=== PATIENT | female | born 1955 | race African-American/Black ===

== ENCOUNTER 2017-10-22 15:48 | Inpatient (IN) ==
[2017-10-22] MEDS ORDERED: Sodium Chlor 0.9% Inj 250 ML IV.SIG ONE (15:56)
--- NOTE | 2017-10-22 16:19 | CT ---
EXAM DATE: 10/22/2017 4:10 PM EDT AGE/SEX: 61 years / Female INDICATIONS: Stroke alert, left sided weakness. CLINICAL DATA: This is the patient's initial encounter. Patient reports that signs and symptoms have been present for 1 day and indicates a pain score of Nonresponsive. MEDICAL/SURGICAL HISTORY: Non-responsive. Non-responsive. RADIATION DOSE: 56.35 CTDI (mGy) [place]PAR[place]: [facility] [place] W 3D, 10/22/2017. . TECHNIQUE: CT of the head without contrast. Using automated exposure control and adjustment of the mA and/or kV according to patient size, radiation dose was kept as low as reasonably achievable to ob tain optimal diagnostic quality images. DICOM format image data is available electronically for revi ew and comparison. FINDINGS: Cerebrum: The ventricles are normal. No midline shift, mass lesion, hemorrhage or acute infarction. No extraaxial fluid collections are seen. There is subtle asymmetric low-density in the right front al lobe best visualized on image 16 and along the right anterior insular ribbon. Posterior Fossa: The cerebellum and brainstem demonstrate no acute abnormality. The 4th ventricle is midline. The cerebellopontine angle is within normal limits. Extracranial: The visualized sinuses are clear. Skull: The calvaria is intact. No skull fracture. CONCLUSION: Findings suspicious for subtle edema along the right insular ribbon and the right frontal lobe. This could represent early cytotoxic edema related to ischemia. These findings were telephoned to Dr. Mandujano at 4:15 PM on 10/22/2017. Electronically signed by: Adria Kern MD 10/22/2017 4:18 PM EDT
[2017-10-22] MEDS ORDERED: Aspirin 325 MG Tablet PO ONE (16:24)
[2017-10-22 16:25] LABS: Baso # (Auto) 0.1 th/mm3 (0.0-0.2); Baso % (Auto) 1.2 % (0.0-2.0); Eos # (Auto) 0.1 th/mm3 (0.0-0.4); Eos % (Auto) 0.8 % (0.0-4.0); Hematocrit 41.6 % (35.0-46.0); Hemoglobin 13.9 gm/dL (11.6-15.3); Lymph # (Auto) 1.9 th/mm3 (1.0-4.8); Lymph % (Auto) 23.7 % (9.0-44.0); Mean Corpuscular HGB Conc 33.4 % (32.0-36.0); Mean Corpuscular Hemoglobin 30.9 pg (27.0-34.0); Mean Corpuscular Volume 92.5 fL (80.0-100.0); Mean Platelet Volume 10.7 fL (7.0-11.0); Mono # (Auto) 0.7 th/mm3 (0.0-0.9); Mono % (Auto) 8.7 % (0.0-8.0); Neut # (Auto) 5.1 th/mm3 (1.8-7.7); Neut % (Auto) 65.6 % (16.0-70.0); Platelet Count 196 th/mm3 (150-450); Red Blood Count 4.49 mil/mm3 (4.00-5.30); Red Cell Distribution Width 13.5 % (11.6-17.2); White Blood Count 7.8 th/mm3 (4.0-11.0)
[2017-10-22 16:36] LABS: Activated Partial Thrombo Time 21.1 sec (24.3-30.1); INR 1.1 Ratio; Prothrombin Time 10.8 sec (9.8-11.6)
--- NOTE | 2017-10-22 16:36 | XR ---
EXAM DATE: 10/22/2017 4:26 PM EDT AGE/SEX: 61 years / Female INDICATIONS: Stroke alert. CLINICAL DATA: This is the patient's initial encounter. Patient reports that signs and symptoms have been present for 1 day and indicates a pain score of 4/10. MEDICAL/SURGICAL HISTORY: None. None. COMPARISON: No prior exams available for comparison. FINDINGS: A single AP view of the chest demonstrates the lungs to be symmetrically aerated without evidence of mass, infiltrate or effusion. The cardiomediastinal contours are unremarkable. Osseous structures a re intact. CONCLUSION: Negative examination. Electronically signed by: Jayesh Wood MD 10/22/2017 4:34 PM EDT
--- NOTE | 2017-10-22 16:41 | CT ---
EXAM DATE: 10/22/2017 4:27 PM EDT AGE/SEX: 61 years / Female INDICATIONS: Left side facial droop CLINICAL DATA: This is the patient's initial encounter. Patient reports that signs and symptoms have been present for 1 day and indicates a pain score of 0/10. MEDICAL/SURGICAL HISTORY: . unable to obtain . unable to obtain RADIATION DOSE: 10.78 CTDI (mGy) ; Combined studies [place] [facility] [place], 10/22/2017. . TECHNIQUE: Volumetric scanning was performed using a multi-row detector CT scanner during bolus infu lashell of 80 ml Visipaque 320 (iodixanol) nonionic water-soluble contrast as a cumulative dose for mul tiple exams. The data was post processed with a variety of visualization algorithms including full volume maximum intensity projection, multi-planar sliding thin slab reformation, curved planar reform ation, and surface rendering techniques. Using automated exposure control and adjustment of the mA a nd/or kV according to patient size, radiation dose was kept as low as reasonably achievable to obtain optimal diagnostic quality images. DICOM format image data is available electronically for review a nd comparison. FINDINGS: There is focal occlusion versus critical stenosis of the superior division branch of the right middle cerebral artery. There is at least partial recanalization of some of the branch vessels. The contral ateral left middle cerebral vessels are intact and unremarkable. The anterior cerebral vessels are in tact and unremarkable. The posterior circulation vessels are intact with incidental largely leana gin of the right posterior cerebral artery. CONCLUSION: Focal proximal occlusion of the superior division branch of the right middle cerebral artery. Electronically signed by: Adria Olsen MD 10/22/2017 4:40 PM EDT
--- NOTE | 2017-10-22 16:50 | CT ---
EXAM DATE: 10/22/2017 4:40 PM EDT AGE/SEX: 61 years / Female INDICATIONS: Left side facial droop CLINICAL DATA: This is the patient's initial encounter. Patient reports that signs and symptoms have been present for 1 day and indicates a pain score of 0/10. MEDICAL/SURGICAL HISTORY: . Unable to obtain . unable to obtain RADIATION DOSE: 10.78 CTDI (mGy) ; Combined studies COMPARISON: No prior exams available for comparison. TECHNIQUE: Volumetric scanning was performed using a multirow detector CT scanner during bolus infus ion of 80 ml Visipaque 320 (iodixanol) nonionic water-soluble contrast as a cumulative dose for mult iple exams. The data was postprocessed with a variety of visualization algorithms including full-vo lume maximum intensity projection, multiplanar sliding thin-slab reformation, curved-planar reformati on, and surface-rendering techniques. Using automated exposure control and adjustment of the mA and/ or kV according to patient size, radiation dose was kept as low as reasonably achievable to obtain op timal diagnostic quality images. DICOM format image data is available electronically for review and comparison. Percent stenosis is calculated using the diameter of the stenotic region over the diameter of the nor mal distal internal carotid artery. FINDINGS: Aortic Arch: There is a three-vessel origin of the great vessels from the aorta. No evidence of ost ial narrowing Right Carotid: The common carotid artery is intact. The carotid bulb has a normal configuration wit hout ulceration or narrowing. The internal carotid artery lumen is smooth without stenosis. The ext ernal carotid artery is intact. Left Carotid: The common carotid artery is intact. The carotid bulb has a normal configuration with out ulceration or narrowing. The internal carotid artery lumen is smooth without stenosis. The exte rnal carotid artery is intact. Vertebrals: The vertebral arteries are patent bilaterally, left side dominant. No stenotic lesions are seen. CONCLUSION: No evidence of carotid stenosis Electronically signed by: Adria Olsen MD 10/22/2017 4:48 PM EDT
[2017-10-22 16:51] LABS: Anion Gap 8 meq/L (5-15); Blood Urea Nitrogen 8 mg/dL (7-18); Calcium 8.6 mg/dL (8.5-10.1); Carbon Dioxide 25.2 meq/L (21.0-32.0); Chloride 108 meq/L (98-107); Glomerular Filtration Rate Greater Than 89 mL/min (>89); Glucose,Random 103 mg/dL (74-106); Sodium 141 meq/L (136-145)
[2017-10-22 16:56] LABS: Troponin I 0.03 ng/mL (0.02-0.05)
[2017-10-22 17:04] LABS: Potassium 3.9 meq/L (3.5-5.1)
[2017-10-22] MEDS ORDERED: Labetalol HCl Inj 100 MG/20 ML Vial IV.PUSH ONE (17:11)
[2017-10-22] MEDS ORDERED: Dextrose 50% in Water 50 ML Vial IV.PUSH PRN (17:14)
[2017-10-22 17:20] LABS: CKMB Percent 2.2 % (0.0-4.0); Creatine Kinase MB 5.4 ng/mL (0.5-3.6)
[2017-10-22] MEDS: Enoxaparin Inj 40 MG/0.4 ML Syringe SQ SCH (17:30)
[2017-10-22] MEDS: Sod Chloride 0.9% Inj 1,000 ML IV.CONT SCH (17:30)
--- NOTE | 2017-10-22 17:30 | ED ---
HPI General Chief Complaint: Neuro Symptoms/Deficit Stated Complaint: Neuro Time Seen by Provider: 10/22/17 15:53 Source: patient and EMS Mode of arrival: EMS Limitations: no limitations History of Present Illness HPI Narrative: Patient is a previously healthy 61-year-old female who presents with complaint of facial droop. She states that approximately 11:00 she started to "feel funny." She then went to [facility] where she walked around for several hours and was found confused with a left facial droop and slurred speech. EMS was then called and brought her here. She arrived here approximately 4-1/2 hours after she was last noted to be well. She denies numbness. She denies weakness. She denies recent fevers. Onset (ago): hour(s) Last Observed Normal: 11:00 Location: speech and left face History of same: No Severity: moderate Quality: constant Relieving factors: none Exacerbating factors: none On Anticoagulants: No Associated symptoms: confusion Treatments Prior to Arrival: none Related Data Home Medications Medication Instructions Recorded Confirmed No Known Home Medications 10/22/17 10/22/17 Allergies Allergy/AdvReac Type Severity Reaction Status Date / Time No Known Allergies Allergy Unverified 10/22/17 16:09 Review of Systems ROS: all other systems reviewed are negative Constitutional Denies fever(s) Eyes Denies blurry vision ENT Denies nasal congestion Cardiovascular Denies chest pain Respiratory Denies dyspnea Gastrointestinal Denies abdominal pain Genitourinary Denies dysuria Musculoskeletal Denies back pain and Denies neck pain Integumentary/Breasts Denies rash Neurologic Reports abnormal speech, Reports confusion, Denies dizziness, Reports headache(s ) and Denies loss of vision Psychiatric Reports confusion Endocrine Denies fatigue [facility] Medical History Medical History Patient denies medical problems (Acute) Surgical History Surgical History No history of previous surgery (Acute) Social History Social History Substance History: No History of Abuse Second Hand Smoke Exposure: Yes Smoking Status: Current every day smoker Tobacco Type: Cigarettes How Often Do You Have a Drink Containing Alcohol: 4 or more times a week Recent Travel in [facility] within the Last 8 Weeks: No Recent Out of Country Travel within the Last 8 Weeks: No Immunization History Tetanus Immunization: >5 Years Hx Influenza Vaccine This Season: No Exam Narrative Exam Narrative: GENERAL: Well-appearing female in no acute distress SKIN: Focused skin assessment warm/dry. No rashes. HEAD: Atraumatic. Normocephalic. EYES: Pupils equal and round. No scleral icterus. No injection or drainage. ENT: No nasal bleeding or discharge. Mucous membranes pink and moist. NECK: Trachea midline. No JVD. CARDIOVASCULAR: Regular rate and rhythm. No murmur appreciated. RESPIRATORY: No accessory muscle use. Clear to auscultation. Breath sounds equal bilaterally. GASTROINTESTINAL: Abdomen soft, non-tender, nondistended. Hepatic and splenic margins not palpable. MUSCULOSKELETAL: No obvious deformities. No clubbing. No cyanosis. No edema. NEUROLOGICAL: Awake and alert but appears slightly confused. Left facial droop with central sparing. Motor within normal limits and without drift. No numbness. No visual field deficits. Dysarthria present without aphasia. PSYCHIATRIC: Tearful and anxious appearing. Course Initial Documented Vital Signs Pulse Rate 117 H 10/22/17 15:52 Respiratory Rate 16 10/22/17 15:52 Pulse Oximetry 97 10/22/17 15:52 Last Documented Vital Signs Temperature 98.3 F 10/22/17 16:52 Pulse Rate 100 H 10/22/17 17:21 Respiratory Rate 17 10/22/17 16:22 Blood Pressure 211/100 H 10/22/17 17:21 Pulse Oximetry 97 10/22/17 17:12 NIH Stroke Scale NIH Stroke Scale Orientation Questions: 0-Answers both correct Responds to Commands: 0-Both tasks correct Gaze Eye Movement: 0-Horizontal movement WNL Visual Andrea: 0-No visual field defect Facial Movement: 2-Partial facial palsy Motor Functions Arm LEFT: 0-No drift Motor Functions Arm RIGHT: 0-No drift Motor Functions Leg LEFT: 0-No drift Motor Functions Leg RIGHT: 0-No drift Limb Ataxia: 0-No ataxia Sensory Loss: 0-No sensory loss Best Language: 0-Normal Articulation: 1-Mild dysarthia Extinction or Inattention Sensory: 0-Absent Total: 3 Quality Measure Queries Stroke Last date observed well: 10/22/17 Last time observed well: 11:00 Medical Decision Making MDM Narrative Medical decision making narrative: Patient is a 61-year-old female who presents with complaint of left facial droop, slight confusion, and dysarthria. Last known well time was approximately 5 hours prior to arrival this acute stroke was activated in case there is any chance she could have an IR procedure. CT did show subtle edema along the right insular ribbon but CTA did not show any large occlusion. I spoke with Dr. Mariee, the neurologist on-call, who recommended that she receive a small normal saline bolus in addition to aspirin which has been given. She is being admitted to Dr. Levin, hospitalist on-call, with Dr. Mariee on board for further evaluation and management. Medical Screen Exam Complete: Yes Emergency Medical Condition: Yes Differential Diagnosis Differential Diagnosis: Differential diagnosis includes but is not limited to hypoglycemia, acute CVA, TIA. Medical Records Medical records reviewed: Yes I reviewed the patient's medical records. Lab Data Lab results reviewed: Yes I reviewed the patient's lab results. Lab results narrative: Labs unremarkable. Result diagrams: 10/22/17 15:55 10/22/17 15:55 Lab Results 10/22/17 10/22/17 10/22/17 Range/Units 15:51 15:55 15:55 WBC 7.8 (4.0-11.0) th/mm3 RBC 4.49 (4.00-5.30) mil/mm3 Hgb 13.9 (11.6-15.3) gm/dL POC Hgb (Calc) 13.3 (11.6-15.3) g/dL Hct 41.6 (35.0-46.0) % POC Hct 39.0 (35-46.0) % MCV 92.5 (80.0-100.0) fL MCH 30.9 (27.0-34.0) pg MCHC 33.4 (32.0-36.0) % RDW 13.5 (11.6-17.2) % Plt Count 196 (150-450) th/mm3 MPV 10.7 (7.0-11.0) fL Neut % (Auto) 65.6 (16.0-70.0) % Lymph % (Auto) 23.7 (9.0-44.0) % [place] % (Auto) 8.7 H (0.0-8.0) % Eos % (Auto) 0.8 (0.0-4.0) % Baso % (Auto) 1.2 (0.0-2.0) % Neut # (Auto) 5.1 (1.8-7.7) th/mm3 Lymph # (Auto) 1.9 (1.0-4.8) th/mm3 [place] # (Auto) 0.7 (0.0-0.9) th/mm3 Eos # (Auto) 0.1 (0.0-0.4) th/mm3 Baso # (Auto) 0.1 (0.0-0.2) th/mm3 WBC Differential . Differential Comment Auto diff final PT (9.8-11.6) sec INR Ratio APTT (24.3-30.1) sec Fibrinogen (227-377) mg/dL POC Sodium 140 (137-144) mmol/L Sodium 141 (136-145) meq/L POC Potassium 3.8 (3.6-5.0) mmol/L Potassium 3.9 (3.5-5.1) meq/L POC Chloride 105 (102-111) mmol/L Chloride 108 H (98-107) meq/L Carbon Dioxide 25.2 (21.0-32.0) meq/L Anion Gap 8 (5-15) meq/L POC BUN 8 (5-21) mg/dL BUN 8 (7-18) mg/dL Creatinine 0.78 (0.50-1.00) mg/dL POC Creatinine 0.7 (0.6-1.3) mg/dL Estimated GFR Greater than 89 (>89) mL/min POC Glucose 112 H 109 (68-110) mg/dl Random Glucose 103 (74-106) mg/dL Calcium 8.6 (8.5-10.1) mg/dL Total Creatine Kinase (26-192) U/L CK-MB (CK-2) (0.5-3.6) ng/mL CK-MB (CK-2) % (0.0-4.0) % Troponin I (0.02-0.05) ng/mL Blood Type Blood Type Recheck Antibody Screen 10/22/17 10/22/17 10/22/17 Range/Units 15:55 15:55 15:55 WBC (4.0-11.0) th/mm3 RBC (4.00-5.30) mil/mm3 Hgb (11.6-15.3) gm/dL POC Hgb (Calc) (11.6-15.3) g/dL Hct (35.0-46.0) % POC Hct (35-46.0) % MCV (80.0-100.0) fL MCH (27.0-34.0) pg MCHC (32.0-36.0) % RDW (11.6-17.2) % Plt Count (150-450) th/mm3 MPV (7.0-11.0) fL Neut % (Auto) (16.0-70.0) % Lymph % (Auto) (9.0-44.0) % [place] % (Auto) (0.0-8.0) % Eos % (Auto) (0.0-4.0) % Baso % (Auto) (0.0-2.0) % Neut # (Auto) (1.8-7.7) th/mm3 Lymph # (Auto) (1.0-4.8) th/mm3 [place] # (Auto) (0.0-0.9) th/mm3 Eos # (Auto) (0.0-0.4) th/mm3 Baso # (Auto) (0.0-0.2) th/mm3 WBC Differential Differential Comment PT 10.8 (9.8-11.6) sec INR 1.1 Ratio APTT 21.1 L (24.3-30.1) sec Fibrinogen 296 (227-377) mg/dL POC Sodium (137-144) mmol/L Sodium (136-145) meq/L POC Potassium (3.6-5.0) mmol/L Potassium (3.5-5.1) meq/L POC Chloride (102-111) mmol/L Chloride (98-107) meq/L Carbon Dioxide (21.0-32.0) meq/L Anion Gap (5-15) meq/L POC BUN (5-21) mg/dL BUN (7-18) mg/dL Creatinine (0.50-1.00) mg/dL POC Creatinine (0.6-1.3) mg/dL Estimated GFR (>89) mL/min POC Glucose (68-110) mg/dl Random Glucose (74-106) mg/dL Calcium (8.5-10.1) mg/dL Total Creatine Kinase 244 H (26-192) U/L CK-MB (CK-2) 5.4 H (0.5-3.6) ng/mL CK-MB (CK-2) % 2.2 (0.0-4.0) % Troponin I 0.03 (0.02-0.05) ng/mL Blood Type B Positive Blood Type Recheck Antibody Screen Negative Imaging Data Attestation: I personally reviewed and interpreted this imaging study as follows : My impression: Subtle edema concerning for CVA. Radiologist's impression: Chest X-Ray 10/22/17 15:52 CONCLUSION: Negative examination. Head CT 10/22/17 15:52 CONCLUSION: Findings suspicious for subtle edema along the right insular ribbon and the right frontal lobe. This could represent early cytotoxic edema related to ischemia. These findings were telephoned to Dr. Mandujano at 4:15 PM on 10/22/2017. Head CTA 10/22/17 15:52 CONCLUSION: Focal proximal occlusion of the superior division branch of the right middle cerebral artery. Neck CTA 10/22/17 15:52 CONCLUSION: No evidence of carotid stenosis ECG Data EKG Prior to Arrival: No Attestation: I personally reviewed and interpreted this ECG as follows: Discharge Plan Discharge Disposition Patient Disposition: 30 Still Patient Discharge Condition Condition: Stable Discharge Details Diagnosis: Acute CVA (cerebrovascular accident) Physicians Team ED Provider: Linn Mandujano Primary Care Provider: UNKNOWN, Attending Provider: Leonor Levin Other Providers: Mauro Mariee ; Isabelle Chi Status ED Status: Admitted Patient
--- NOTE | 2017-10-22 17:52 | P.HPIM ---
History of Present Illness Primary Care Physician: UNKNOWN Chief Complaint: Confusion left facial droop History of Present Illness: 61-year-old female with no past medical history presents to the emergency room after she was found wandering in the grocery store and having friends noticed left facial droop. She states prior to going to the grocery store she was in the bathroom and fell but was able to get up at that time at 11 :00 however going to grow sure she felt "not herself". Her friends also noted she had difficulty with her speech however she blames on recent dentures that was placed in. Nursing staff at the bedside the emergency room stated that she initially had garbled speech when she presented in the emergency room however has improved at this time. She denies any focalized weakness or numbness. She denies any numbness or tingling at this time. - Diagnosis (1) Acute CVA (cerebrovascular accident) Inpatient Certification: I certify that the inpatient services were ordered in accordance with Medicare regulations governing the order. This includes certification that hospital inpatient services are reasonable and necessary and in the case of services not specified as inpatient-only under 42 CFR 419.22(n), that they are appropriately provided as inpatient services in accordance to with the 2-midnight benchmark under 43 CFR 412.3(e) Estimated Total Length of Stay (Days): 3 Plans for Post Hospital Care: Not yet determined Review of Systems All other systems reviewed negative except as stated in HPI [facility] - History History Provided By: Patient - Medical / Surgical Hx Neg / Unobtainable Medical Problems Denied: Yes Surgical History: No Previous Surgery - Medical History Medical History: Medical History (Last Reviewed 10/22/17 @ 17:24 by Linn Mandujano MD) Patient denies medical problems - Surgical History Surgical History: Surgical History (Last Reviewed 10/22/17 @ 17:24 by Linn Mandujano MD) No history of previous surgery - Family History Family History: Family History (Last Updated 10/22/17 @ 17:40 by Leonor Levin MD) Mother Diabetes - Tobacco History Second Hand Smoke Exposure: Yes Tobacco Use In Past 30 Days: Yes Smoking Status: Current every day smoker Tobacco Type: Cigarettes - Alcohol History How Often Do You Have a Drink Containing Alcohol: 4 or more times a week - Substance Use History Substance History: No History of Abuse - Travel History Recent Travel in the [facility] Within the Last 8 Weeks: No Recent Travel Out of the Country Within the Last 8 Weeks: No - Immunization History Tetanus Immunization: >5 Years Hx Influenza Vaccine This Season: No Medications and Allergies Active Medications: Active Medications Aspirin (Aspirin) 325 mg PO DAILY [facility] Dextrose (D50w Vial) 50 ml IV.PUSH UNSCH PRN PRN Reason: PER HYPOGLYCEMIA PROTOCOL Enalaprilat (Vasotec Inj) 1.25 mg IV.PUSH Q4H PRN PRN Reason: For SBP > 220 or DBP > 120 Enoxaparin Sodium (Lovenox Inj) 40 mg SQ Q24H [facility] Last Admin: 10/22/17 17:30 Dose: 40 mg Glucagon (Glucagon Inj) 1 mg OTHER UNSCH PRN PRN Reason: for Hypoglycemia Protocol Sodium Chloride (Ns Inj) 1,000 mls @ 70 mls/hr IV.CONT .[id number] [facility] Last Admin: 10/22/17 17:30 Dose: 70 mls/hr Insulin Aspart (Novolog Insulin Correctional Sugar Inj) 0 unit SQ ACHS [facility]; Protocol Pravastatin Sodium (Pravachol) 40 mg PO HS MICHEL Sodium Chloride (Ns Flush) 2 ml IV.FLUSH BID MICHEL Sodium Chloride (Ns Flush) 2 ml IV.FLUSH PRN PRN PRN Reason: FLUSH AFTER USING IV ACCESS Allergies Allergy/AdvReac Type Severity Reaction Status Date / Time No Known Allergies Allergy Unverified 10/22/17 16:09 Home Medications Medication Instructions Recorded Confirmed Type No Known Home Medications 10/22/17 10/22/17 History Exam Vital signs: Vital Signs 10/22/17 15:52 10/22/17 15:55 10/22/17 16:02 Temperature Pulse Rate 117 H 99 H Respiratory Rate 16 17 Blood Pressure 211/98 H 203/92 H Pulse Oximetry 97 94 L 10/22/17 16:15 10/22/17 16:22 10/22/17 16:26 Temperature Pulse Rate 102 H 94 H Respiratory Rate 16 17 Blood Pressure 215/114 H 183/90 H Pulse Oximetry 97 97 97 10/22/17 16:52 10/22/17 17:12 10/22/17 17:14 Temperature 98.3 F Pulse Rate 100 H Respiratory Rate Blood Pressure 224/109 H Pulse Oximetry 97 10/22/17 17:21 10/22/17 17:27 Temperature Pulse Rate 100 H 99 H Respiratory Rate Blood Pressure 211/100 H 147/102 H Pulse Oximetry Intake & Output 10/21/17 10/22/17 10/22/17 18:59 06:59 18:59 Weight 102.7 kg Narrative: GENERAL: Well-nourished well-developed female no acute distress SKIN: Warm and dry. HEAD: Atraumatic. Normocephalic. EYES: Pupils equal and round. No scleral icterus. No injection or drainage. Left facial droop ENT: No nasal bleeding or discharge. Mucous membranes pink and moist. NECK: Trachea midline. No JVD. CARDIOVASCULAR: Regular rate and rhythm. RESPIRATORY: No accessory muscle use. Clear to auscultation. Breath sounds equal bilaterally. GASTROINTESTINAL: Abdomen soft, non-tender, nondistended. Hepatic and splenic margins not palpable. Normoactive bowel sounds MUSCULOSKELETAL: Extremities without clubbing, cyanosis, or edema. No obvious deformities. NEUROLOGICAL: Awake and alert to person place time. Left facial droop sensation grossly intact motor grossly within normal limits. Five out of 5 muscle strength in the arms and legs. Slight garbled speech with minimum aphasia. PSYCHIATRIC: Appropriate mood and affect; insight and judgment normal. Results - Labs CBC & Chem 7: 10/22/17 15:55 10/22/17 15:55 Labs: Short CBC 10/22/17 Range/Units 15:55 WBC 7.8 (4.0-11.0) th/mm3 Hgb 13.9 (11.6-15.3) gm/dL Hct 41.6 (35.0-46.0) % Plt Count 196 (150-450) th/mm3 BMP 10/22/17 15:55 Sodium 141 Potassium 3.9 Chloride 108 H Carbon Dioxide 25.2 BUN 8 Creatinine 0.78 Calcium 8.6 Cardiac Enzymes 10/22/17 Range/Units 15:55 Total Creatine Kinase 244 H (26-192) U/L CK-MB (CK-2) 5.4 H (0.5-3.6) ng/mL Troponin I 0.03 (0.02-0.05) ng/mL - Imaging Impressions Chest X-Ray 10/22/17 15:52 CONCLUSION: Negative examination. Head CT 10/22/17 15:52 CONCLUSION: Findings suspicious for subtle edema along the right insular ribbon and the right frontal lobe. This could represent early cytotoxic edema related to ischemia. These findings were telephoned to Dr. Mandujano at 4:15 PM on 10/22/2017. Head CTA 10/22/17 15:52 CONCLUSION: Focal proximal occlusion of the superior division branch of the right middle cerebral artery. Neck CTA 10/22/17 15:52 CONCLUSION: No evidence of carotid stenosis - ECG Attestation: I personally reviewed and interpreted this ECG as follows: Prior ECG tracings: not available for review Interpretation: Normal sinus rhythm heart rate [address]-T wave changes Caprini VTE Risk Assessment Caprini VTE Risk Assessment: Moderate/High Risk (score >= 2) Caprini Risk Assessment Model: Point Value = 1 Point Value = 2 Point Value = 3 Point Value = 5 Age 41-60 Minor surgery BMI > 25 kg/m2 Swollen legs Varicose veins or History of unexplained or recurrent spontaneous Oral contraceptives or hormone replacement Sepsis (< 1 month) Serious lung disease, including pneumonia (< 1 month) Abnormal pulmonary function Acute myocardial infarction Congestive heart failure (< 1 month) History of inflammatory bowel disease Medical patient at bed rest Age 61-74 Arthroscopic surgery Major open surgery (> 45 min) Laparoscopic surgery (> 45 min) Malignancy Confined to bed (> 72 hours) Immobilizing plaster cast Central venous access Age >= 75 History of VTE Family history of VTE Factor V Leiden Prothrombin [id number] Lupus anticoagulant Anticardiolipin antibodies Elevated serum homocysteine Heparin-induced thrombocytopenia Other congenital or acquired thrombophilia Stroke (< 1 month) Elective arthroplasty Hip, pelvis, or leg fracture Acute spinal cord injury (< 1 month) Prophylaxis Regimen: Total Risk Factor Score Risk Level Prophylaxis Regimen 0-1 Low Early ambulation 2 Moderate Order ONE of the following: *Sequential Compression Device (SCD) *Heparin 5000 units SQ BID 3-4 Higher Order ONE of the following medications: *Heparin 5000 units SQ TID *Enoxaparin/Lovenox 40 mg SQ daily (WT < 150 kg, CrCl > 30 mL/min) *Enoxaparin/Lovenox 30 mg SQ daily (WT < 150 kg, CrCl > 10-29 mL/min) *Enoxaparin/Lovenox 30 mg SQ BID (WT < 150 kg, CrCl > 30 mL/min) AND/OR *Sequential Compression Device (SCD) 5 or more Highest Order ONE of the following medications: *Heparin 5000 units SQ TID (Preferred with Epidurals) *Enoxaparin/Lovenox 40 mg SQ daily (WT < 150 kg, CrCl > 30 mL/min) *Enoxaparin/Lovenox 30 mg SQ daily (WT < 150 kg, CrCl > 10-29 mL/min) *Enoxaparin/Lovenox 30 mg SQ BID (WT < 150 kg, CrCl > 30 mL/min) AND *Sequential Compression Device (SCD) Assessment and Plan - Assessment (1) Acute CVA (cerebrovascular accident) Code(s): I63.9 - Cerebral infarction, unspecified Status: Acute - Plan 61-year-old female presents with left facial droop, confusion, mild dysarthria 1. Acute CVAadmit for further evaluation. Stroke alert initiated with consult to neurology. Aspirin. Await MRI of the brain, 2D echo, continue close neurological checks. Check fasting lipid profile and hemoglobin A1c, consult PT and ST. 2. Hypertensive emergency -permissive blood pressure for next 24 hours secondary to acute stroke. Discussed with Neurology, Dr. Mariee. 3. Tobacco abusecessation counseling 4. DVT prophylaxisLovenox.
[2017-10-22 18:05] LABS: Bacteria,Urine Few /hpf; Bilirubin,Urine Negative (Negative); Clarity,Urine Cloudy (Clear); Color,Urine Straw (Yellw/Straw); Glucose,Urine (UA) Negative (Negative); Leukocyte Esterase,Urine Large (Negative); Mucus,Urine Few /lpf (Occasional); Nitrite,Urine Negative (Negative); Specific Gravity,Urine 1.013 (1.002-1.035); Squamous Epithelial Cell,Urine 2 /hpf (0-5)
--- NOTE | 2017-10-22 18:37 | MB ---
cc: Mauro Mariee MD DATE: 10/22/2017 HISTORY OF PRESENT ILLNESS: A 61-year-old right-handed woman with a history of hypertension, otherwise she is very healthy. She got up this morning, seemed to be doing well, and went to the bathroom at about 11 and slid off the toilet. Then got up and went to the store, but a friend noticed that her face was droopy and then she came into the ER. I was called at approximately 4:00 p.m., which was about 5-1/2 hours after the onset of symptoms. She was not a candidate for IV tPA at that point. REVIEW OF SYSTEMS: She denied any headache, chest pain, or palpitations; any history of diabetes, hypercholesterolemia, [place], stent, angioplasty, heart problems, A-fib, Coumadin; renal, hepatic or pulmonary disease, thyroid disease, lupus, ulcer, cancer, seizure, or stroke. SOCIAL HISTORY: She is a smoker and I have asked her to quit, occasionally has a drink. Lives by herself. No drugs. FAMILY HISTORY: Negative for cancer, seizure, or stroke. MEDICATIONS AT HOME: None. PHYSICAL EXAMINATION: VITAL SIGNS: 224/109-147/102, initial blood pressure 211/98. There are no carotid bruits. HEART: Regular rate and rhythm. I did not detect a murmur. NEUROLOGIC: Pupils are equal. Visual farfan are actually full, but she has some left visual neglect, which is fairly consistent. Patient shows a left facial droop, with decreased sensation on the left compared to the right. Tongue was midline. There is no drift. She had normal strength in upper and lower extremities bilaterally. DTRs are trace throughout. Toes downgoing bilaterally. She has diminished pinprick on the left side. She has some left-sided sensory neglect on double simultaneous stimuli checking sensory. Her speech is fluent. She is not aphasic. A little bit of slurred speech. She shows me her left thumb well, follows commands well. NIH stroke scale is a 3 due to her partial neglect left hemisensory diminished and the left visual neglect. LABORATORY DATA: CBC is normal. Basic metabolic profile normal. CPK 244. Troponin negative. Glucose 112. Coags normal. DIAGNOSTIC DATA: She had a CT of the brain, which showed early changes in the right frontal and right insular ribbon. On review of the films, there was significant, possibly it looks older probably than 6 hours of the right frontal insular region CT change, as far as how dense it is. CTA of the neck: No significant stenosis. CTA of the head: Superior division of right MCA occlusion. On review of the films, MCA fills well. A distal occlusion, however, noted. IMPRESSION: Right distal middle cerebral artery branch clot. Possible cardioembolic. PLAN: I am not certain about the time of onset; she says 11:00 when she fell off the toilet, but the fact that she did not realize she had slurred speech and the fact that she has such neglect, it could have happened at a much earlier time and she would not have known about it. I did talk with Dr. Harris, and he felt that trying to do a clot extraction could give her a hemorrhage, and I would agree considering the changes seen on the CT, which looked to be probably older than 6 hours, I thought, and I am uncertain really about the time of onset due to her neglect. For now, we will keep the head of bed flat, IV hydration, keep her blood pressure up, and do an echo and a Holter, and some additional blood work. I will be following her with you in the hospital and do q.1 hour neuro checks. MD YESICA Fierro/flavia , 05:45 PM , 05:54 PM
--- NOTE | 2017-10-22 19:01 | MR ---
EXAM DATE: 10/22/2017 6:52 PM EDT AGE/SEX: 61 years / Female INDICATIONS: CVA. Left sided weakness and slurred speech. CLINICAL DATA: This is the patient's initial encounter. Patient reports that signs and symptoms have been present for 1 day and indicates a pain score of 5/10. MEDICAL/SURGICAL HISTORY: None. Tubal ligation. COMPARISON: [facility] [place], CT HEAD W/O CONTRAST, 10/22/2017. . TECHNIQUE: Multiplanar, multisequence examination of the brain was performed without contrast. FINDINGS: Cerebrum: The ventricles are normal for age. Area of increased T2 FLAIR signal intensity within the right frontoparietal region. The pituitary gland and suprasellar cistern are normal in configuration . White Matter: Minimal white matter changes in the deep white matter tracts. Posterior Fossa: The cerebellum and brainstem are intact. The 4th ventricle is midline. The cerebel lopontine angle is unremarkable. The cerebellar tonsils are normal in position. Diffusion Imaging: True diffusion restriction in the area of increased T2 signal intensity described in the right frontoparietal region. Extracranial: The visualized portions of the orbits and paranasal sinuses are unremarkable. CONCLUSION: 1. Acute or subacute infarct in the right frontoparietal region. 2. Minimal white matter changes Electronically signed by: Grover Kim MD 10/22/2017 7:00 PM EDT
[2017-10-22 21:48] LABS: Folate 13.2 ng/mL (3.1-17.5); Thyroid Stimulating Hormone 2.13 uIU/mL (0.358-3.740)
[2017-10-22] MEDS: Insulin NovoLOG Aspart Correctional Sugar Inj SQ SCH (22:26)
[2017-10-22] MEDS ORDERED: Ibuprofen 600 MG Tablet PO ONE (22:39)
[2017-10-23 06:17] LABS: Chol/HDL Ratio 2.09 Ratio; HDL Cholesterol 61.7 mg/dL (40.0-60.0)
--- NOTE | 2017-10-23 07:38 | P.PNNEU ---
Subjective Subjective Comments: sr Active Medications: Active Medications Aspirin (Aspirin) 325 mg PO DAILY [facility] Dextrose (D50w Vial) 50 ml IV.PUSH UNSCH PRN PRN Reason: PER HYPOGLYCEMIA PROTOCOL Enalaprilat (Vasotec Inj) 1.25 mg IV.PUSH Q4H PRN PRN Reason: For SBP > 220 or DBP > 120 Enoxaparin Sodium (Lovenox Inj) 40 mg SQ Q24H [facility] Last Admin: 10/22/17 17:30 Dose: 40 mg Glucagon (Glucagon Inj) 1 mg OTHER UNSCH PRN PRN Reason: for Hypoglycemia Protocol Sodium Chloride (Ns Inj) 1,000 mls @ 70 mls/hr IV.CONT .[id number] [facility] Last Infusion: 10/22/17 21:03 Dose: Infused Insulin Aspart (Novolog Insulin Correctional Sugar Inj) 0 unit SQ ACHS [facility]; Protocol Last Admin: 10/22/17 22:26 Dose: Not Given Pravastatin Sodium (Pravachol) 40 mg PO HS [facility] Last Admin: 10/22/17 21:53 Dose: 40 mg Sodium Chloride (Ns Flush) 2 ml IV.FLUSH BID [facility] Last Admin: 10/22/17 21:53 Dose: 2 ml Sodium Chloride (Ns Flush) 2 ml IV.FLUSH PRN PRN PRN Reason: FLUSH AFTER USING IV ACCESS Allergies/Adverse Reactions: Allergies Allergy/AdvReac Type Severity Reaction Status Date / Time No Known Allergies Allergy Unverified 10/22/17 16:09 Physical Exam Vital signs: Vital Signs 10/22/17 15:52 10/22/17 15:55 10/22/17 16:02 Temperature Pulse Rate 117 H 99 H Respiratory Rate 16 17 Blood Pressure 211/98 H 203/92 H Pulse Oximetry 97 94 L 10/22/17 16:15 10/22/17 16:22 10/22/17 16:26 Temperature Pulse Rate 102 H 94 H Respiratory Rate 16 17 Blood Pressure 215/114 H 183/90 H Pulse Oximetry 97 97 97 10/22/17 16:52 10/22/17 17:12 10/22/17 17:14 Temperature 98.3 F Pulse Rate 100 H Respiratory Rate Blood Pressure 224/109 H Pulse Oximetry 97 10/22/17 17:21 10/22/17 17:27 10/22/17 19:13 Temperature Pulse Rate 100 H 99 H 97 H Respiratory Rate 18 Blood Pressure 211/100 H 147/102 H 203/99 H Pulse Oximetry 98 10/22/17 19:48 10/22/17 21:00 10/23/17 00:00 Temperature 99.6 F Pulse Rate 92 H 69 Respiratory Rate 18 19 Blood Pressure 199/97 H 159/78 H Pulse Oximetry 96 98 10/23/17 04:00 Temperature 99.5 F Pulse Rate 63 Respiratory Rate 20 Blood Pressure 157/74 H Pulse Oximetry 97 Intake & Output 10/22/17 10/23/17 10/23/17 18:59 06:59 18:59 Intake Total 1000 / 1000 Balance 1000 / 1000 Weight 102.7 kg 104.4 kg Intake: IV 1000 / 1000 NS Inj 1,000 ML @ 70 mls/hr IV. 1000 / 1000 CONT .[id number] [facility] Rx#:[id number] Other: # Voids 2 Weight On Admission 105.2 kg Narrative: left droop mild speech clear 5/5 left vff Objective Laboratory Results - last 24 hr 10/22/17 10/22/17 10/22/17 15:51 15:55 15:55 WBC 7.8 RBC 4.49 Hgb 13.9 POC Hgb (Calc) 13.3 Hct 41.6 POC Hct 39.0 MCV 92.5 MCH 30.9 MCHC 33.4 RDW 13.5 Plt Count 196 MPV 10.7 Neut % (Auto) 65.6 Lymph % (Auto) 23.7 [place] % (Auto) 8.7 H Eos % (Auto) 0.8 Baso % (Auto) 1.2 Neut # (Auto) 5.1 Lymph # (Auto) 1.9 [place] # (Auto) 0.7 Eos # (Auto) 0.1 Baso # (Auto) 0.1 WBC Differential . Differential Comment Auto diff final ESR PT INR APTT Fibrinogen POC Sodium 140 Sodium 141 POC Potassium 3.8 Potassium 3.9 POC Chloride 105 Chloride 108 H Carbon Dioxide 25.2 Anion Gap 8 POC BUN 8 BUN 8 Creatinine 0.78 POC Creatinine 0.7 Estimated GFR Greater than 89 POC Glucose 112 H 109 Random Glucose 103 Calcium 8.6 Total Creatine Kinase CK-MB (CK-2) CK-MB (CK-2) % Troponin I Triglycerides Cholesterol LDL Cholesterol, Calc HDL Cholesterol Cholesterol/HDL Ratio Vitamin B12 Folate TSH Free T4 Urine Color Urine Clarity Urine pH Ur Specific [place] Urine Protein Urine Glucose (UA) Urine Ketones Urine Occult Blood Urine Nitrate Urine Bilirubin Urine Urobilinogen Ur Leukocyte Esterase Urine RBC Urine WBC Urine WBC Clumps Ur Squamous Epith Cells Urine Bacteria Urine Mucus Micro UA Comment Urine Culture Comments Nasal Screen MRSA (PCR) Blood Type Blood Type Recheck Antibody Screen 10/22/17 10/22/17 10/22/17 15:55 15:55 15:55 WBC RBC Hgb POC Hgb (Calc) Hct POC Hct MCV MCH MCHC RDW Plt Count MPV Neut % (Auto) Lymph % (Auto) [place] % (Auto) Eos % (Auto) Baso % (Auto) Neut # (Auto) Lymph # (Auto) [place] # (Auto) Eos # (Auto) Baso # (Auto) WBC Differential Differential Comment ESR PT 10.8 INR 1.1 APTT 21.1 L Fibrinogen 296 POC Sodium Sodium POC Potassium Potassium POC Chloride Chloride Carbon Dioxide Anion Gap POC BUN BUN Creatinine POC Creatinine Estimated GFR POC Glucose Random Glucose Calcium Total Creatine Kinase 244 H CK-MB (CK-2) 5.4 H CK-MB (CK-2) % 2.2 Troponin I 0.03 Triglycerides Cholesterol LDL Cholesterol, Calc HDL Cholesterol Cholesterol/HDL Ratio Vitamin B12 Folate TSH Free T4 Urine Color Urine Clarity Urine pH Ur Specific [place] Urine Protein Urine Glucose (UA) Urine Ketones Urine Occult Blood Urine Nitrate Urine Bilirubin Urine Urobilinogen Ur Leukocyte Esterase Urine RBC Urine WBC Urine WBC Clumps Ur Squamous Epith Cells Urine Bacteria Urine Mucus Micro UA Comment Urine Culture Comments Nasal Screen MRSA (PCR) Blood Type B Positive Blood Type Recheck Antibody Screen Negative 10/22/17 10/22/17 10/22/17 15:55 17:05 20:18 WBC RBC Hgb POC Hgb (Calc) Hct POC Hct MCV MCH MCHC RDW Plt Count MPV Neut % (Auto) Lymph % (Auto) [place] % (Auto) Eos % (Auto) Baso % (Auto) Neut # (Auto) Lymph # (Auto) [place] # (Auto) Eos # (Auto) Baso # (Auto) WBC Differential Differential Comment ESR 6 PT INR APTT Fibrinogen POC Sodium Sodium POC Potassium Potassium POC Chloride Chloride Carbon Dioxide Anion Gap POC BUN BUN Creatinine POC Creatinine Estimated GFR POC Glucose Random Glucose Calcium Total Creatine Kinase CK-MB (CK-2) CK-MB (CK-2) % Troponin I Triglycerides Cholesterol LDL Cholesterol, Calc HDL Cholesterol Cholesterol/HDL Ratio Vitamin B12 500 Folate 13.2 TSH 2.130 Free T4 1.00 Urine Color Straw Urine Clarity Cloudy H Urine pH 7.0 Ur Specific [place] 1.013 Urine Protein Negative Urine Glucose (UA) Negative Urine Ketones Negative Urine Occult Blood Small H Urine Nitrate Negative Urine Bilirubin Negative Urine Urobilinogen Less than 2 Ur Leukocyte Esterase Large H Urine RBC 2 Urine WBC 64 H Urine WBC Clumps Many H Ur Squamous Epith Cells 2 Urine Bacteria Few H Urine Mucus Few H Micro UA Comment Cath-culture ind Urine Culture Comments Cath-cult indicated Nasal Screen MRSA (PCR) Blood Type Blood Type Recheck Antibody Screen 10/22/17 10/22/17 10/23/17 22:17 23:00 04:29 WBC RBC Hgb POC Hgb (Calc) Hct POC Hct MCV MCH MCHC RDW Plt Count MPV Neut % (Auto) Lymph % (Auto) [place] % (Auto) Eos % (Auto) Baso % (Auto) Neut # (Auto) Lymph # (Auto) [place] # (Auto) Eos # (Auto) Baso # (Auto) WBC Differential Differential Comment ESR PT INR APTT Fibrinogen POC Sodium Sodium POC Potassium Potassium POC Chloride Chloride Carbon Dioxide Anion Gap POC BUN BUN Creatinine POC Creatinine Estimated GFR POC Glucose 92 Random Glucose Calcium Total Creatine Kinase CK-MB (CK-2) CK-MB (CK-2) % Troponin I Triglycerides 108 Cholesterol 129 LDL Cholesterol, Calc 46 HDL Cholesterol 61.7 H Cholesterol/HDL Ratio 2.09 Vitamin B12 Folate TSH Free T4 Urine Color Urine Clarity Urine pH Ur Specific [place] Urine Protein Urine Glucose (UA) Urine Ketones Urine Occult Blood Urine Nitrate Urine Bilirubin Urine Urobilinogen Ur Leukocyte Esterase Urine RBC Urine WBC Urine WBC Clumps Ur Squamous Epith Cells Urine Bacteria Urine Mucus Micro UA Comment Urine Culture Comments Nasal Screen MRSA (PCR) Not detected Blood Type Blood Type Recheck Antibody Screen Review/Management - Review/Management Plan: imp mod r m[facility] for cardioembolic ldl nl could dc [place] down today and if stable in am can get up tomorrow ua positive needs rx on asa but from clot and look of cva would rec coumadin and saira and loop if echo neg
[2017-10-23] MEDS: Sod Chloride 0.9% Inj 1,000 ML IV.CONT SCH (08:00)
[2017-10-23] MEDS: Insulin NovoLOG Aspart Correctional Sugar Inj SQ SCH ×4 (08:07→21:00)
[2017-10-23] MEDS: Aspirin 325 MG Tablet PO SCH (08:33)
[2017-10-23] MEDS: Ciprofloxacin 500 MG Tablet PO SCH ×2 (10:42→21:00)
--- NOTE | 2017-10-23 12:33 | ECG ---
Date Performed: 10/22/2017 Time Performed: 16:18:37 PTAGE: 61 years EKG: Sinus rhythm WITH FIRST DEGREE AV BLOCK POSSIBLE LEFT ATRIAL ENLARGEMENT NONSPECIFIC T-WAVE ABNORMALITY ABNORMAL ECG Compared to PREVIOUS TRACING , left atrial abnormality is new, ST-T abnormality is new. PREVIOUS TRAC IN09/03/2008 12.54 DOCTOR: Michele Baird Interpretating Date/Time 10/23/2017 12:31:01
--- NOTE | 2017-10-23 13:30 | P.PNIM ---
Subjective Interval history: Complaining of left sciatic back pain that she is laying flat. No complaints of headache visual changes nor any focalized weakness or numbness. Feeling okay. Physical Exam Vital signs: Vital Signs 10/22/17 15:52 10/22/17 15:55 10/22/17 16:02 Temperature Pulse Rate 117 H 99 H Respiratory Rate 16 17 Blood Pressure 211/98 H 203/92 H Pulse Oximetry 97 94 L 10/22/17 16:15 10/22/17 16:22 10/22/17 16:26 Temperature Pulse Rate 102 H 94 H Respiratory Rate 16 17 Blood Pressure 215/114 H 183/90 H Pulse Oximetry 97 97 97 10/22/17 16:52 10/22/17 17:12 10/22/17 17:14 Temperature 98.3 F Pulse Rate 100 H Respiratory Rate Blood Pressure 224/109 H Pulse Oximetry 97 10/22/17 17:21 10/22/17 17:27 10/22/17 19:13 Temperature Pulse Rate 100 H 99 H 97 H Respiratory Rate 18 Blood Pressure 211/100 H 147/102 H 203/99 H Pulse Oximetry 98 10/22/17 19:48 10/22/17 20:00 10/22/17 21:00 Temperature Pulse Rate 92 H Respiratory Rate 18 Blood Pressure 199/97 H Pulse Oximetry 96 99 98 10/23/17 00:00 10/23/17 04:00 10/23/17 08:00 Temperature 99.6 F 99.5 F 98.6 F Pulse Rate 69 63 80 Respiratory Rate 19 20 29 H Blood Pressure 159/78 H 157/74 H 142/98 H Pulse Oximetry 97 100 10/23/17 08:31 10/23/17 09:00 Temperature Pulse Rate 85 Respiratory Rate Blood Pressure Pulse Oximetry 98 Intake & Output 10/22/17 10/23/17 10/23/17 18:59 06:59 18:59 Intake Total 1000 / 1000 Balance 1000 / 1000 Weight 102.7 kg 104.4 kg Intake: IV 1000 / 1000 NS Inj 1,000 ML @ 70 mls/hr IV. 1000 / 1000 CONT .[id number] [facility] Rx#:[id number] Other: # Voids 2 Weight On Admission 105.2 kg Narrative: GENERAL: This is a well-nourished, well-developed patient, in no apparent distress. CARDIOVASCULAR: Regular rate and rhythm without murmurs, gallops, or rubs. RESPIRATORY: Clear to auscultation. Breath sounds equal bilaterally. No wheezes , rales, or rhonchi. GASTROINTESTINAL: Abdomen soft, non-tender, nondistended. Normal active bowel sounds MUSCULOSKELETAL: Extremities without clubbing, cyanosis, or edema. NEURO: Alert & Oriented x4 to person, place, time, situation. Motor strength 5 out of 5 bilateral upper extremity and lower extremities,, minor left facial droop moves all ext x4 Results - Labs CBC & Chem 7: 10/22/17 15:55 10/22/17 15:55 Laboratory Results - last 24 hr 10/22/17 10/22/17 10/22/17 15:51 15:55 15:55 WBC 7.8 RBC 4.49 Hgb 13.9 POC Hgb (Calc) 13.3 Hct 41.6 POC Hct 39.0 MCV 92.5 MCH 30.9 MCHC 33.4 RDW 13.5 Plt Count 196 MPV 10.7 Neut % (Auto) 65.6 Lymph % (Auto) 23.7 [place] % (Auto) 8.7 H Eos % (Auto) 0.8 Baso % (Auto) 1.2 Neut # (Auto) 5.1 Lymph # (Auto) 1.9 [place] # (Auto) 0.7 Eos # (Auto) 0.1 Baso # (Auto) 0.1 WBC Differential . Differential Comment Auto diff final ESR PT INR APTT Fibrinogen POC Sodium 140 Sodium 141 POC Potassium 3.8 Potassium 3.9 POC Chloride 105 Chloride 108 H Carbon Dioxide 25.2 Anion Gap 8 POC BUN 8 BUN 8 Creatinine 0.78 POC Creatinine 0.7 Estimated GFR Greater than 89 POC Glucose 112 H 109 Random Glucose 103 Calcium 8.6 Total Creatine Kinase CK-MB (CK-2) CK-MB (CK-2) % Troponin I Triglycerides Cholesterol LDL Cholesterol, Calc HDL Cholesterol Cholesterol/HDL Ratio Vitamin B12 Folate TSH Free T4 Urine Color Urine Clarity Urine pH Ur Specific [place] Urine Protein Urine Glucose (UA) Urine Ketones Urine Occult Blood Urine Nitrate Urine Bilirubin Urine Urobilinogen Ur Leukocyte Esterase Urine RBC Urine WBC Urine WBC Clumps Ur Squamous Epith Cells Urine Bacteria Urine Mucus Micro UA Comment Urine Culture Comments Nasal Screen MRSA (PCR) Blood Type Blood Type Recheck Antibody Screen 10/22/17 10/22/17 10/22/17 15:55 15:55 15:55 WBC RBC Hgb POC Hgb (Calc) Hct POC Hct MCV MCH MCHC RDW Plt Count MPV Neut % (Auto) Lymph % (Auto) [place] % (Auto) Eos % (Auto) Baso % (Auto) Neut # (Auto) Lymph # (Auto) [place] # (Auto) Eos # (Auto) Baso # (Auto) WBC Differential Differential Comment ESR PT 10.8 INR 1.1 APTT 21.1 L Fibrinogen 296 POC Sodium Sodium POC Potassium Potassium POC Chloride Chloride Carbon Dioxide Anion Gap POC BUN BUN Creatinine POC Creatinine Estimated GFR POC Glucose Random Glucose Calcium Total Creatine Kinase 244 H CK-MB (CK-2) 5.4 H CK-MB (CK-2) % 2.2 Troponin I 0.03 Triglycerides Cholesterol LDL Cholesterol, Calc HDL Cholesterol Cholesterol/HDL Ratio Vitamin B12 Folate TSH Free T4 Urine Color Urine Clarity Urine pH Ur Specific [place] Urine Protein Urine Glucose (UA) Urine Ketones Urine Occult Blood Urine Nitrate Urine Bilirubin Urine Urobilinogen Ur Leukocyte Esterase Urine RBC Urine WBC Urine WBC Clumps Ur Squamous Epith Cells Urine Bacteria Urine Mucus Micro UA Comment Urine Culture Comments Nasal Screen MRSA (PCR) Blood Type B Positive Blood Type Recheck Antibody Screen Negative 10/22/17 10/22/17 10/22/17 15:55 17:05 20:18 WBC RBC Hgb POC Hgb (Calc) Hct POC Hct MCV MCH MCHC RDW Plt Count MPV Neut % (Auto) Lymph % (Auto) [place] % (Auto) Eos % (Auto) Baso % (Auto) Neut # (Auto) Lymph # (Auto) [place] # (Auto) Eos # (Auto) Baso # (Auto) WBC Differential Differential Comment ESR 6 PT INR APTT Fibrinogen POC Sodium Sodium POC Potassium Potassium POC Chloride Chloride Carbon Dioxide Anion Gap POC BUN BUN Creatinine POC Creatinine Estimated GFR POC Glucose Random Glucose Calcium Total Creatine Kinase CK-MB (CK-2) CK-MB (CK-2) % Troponin I Triglycerides Cholesterol LDL Cholesterol, Calc HDL Cholesterol Cholesterol/HDL Ratio Vitamin B12 500 Folate 13.2 TSH 2.130 Free T4 1.00 Urine Color Straw Urine Clarity Cloudy H Urine pH 7.0 Ur Specific [place] 1.013 Urine Protein Negative Urine Glucose (UA) Negative Urine Ketones Negative Urine Occult Blood Small H Urine Nitrate Negative Urine Bilirubin Negative Urine Urobilinogen Less than 2 Ur Leukocyte Esterase Large H Urine RBC 2 Urine WBC 64 H Urine WBC Clumps Many H Ur Squamous Epith Cells 2 Urine Bacteria Few H Urine Mucus Few H Micro UA Comment Cath-culture ind Urine Culture Comments Cath-cult indicated Nasal Screen MRSA (PCR) Blood Type Blood Type Recheck Antibody Screen 10/22/17 10/22/17 10/23/17 22:17 23:00 04:29 WBC RBC Hgb POC Hgb (Calc) Hct POC Hct MCV MCH MCHC RDW Plt Count MPV Neut % (Auto) Lymph % (Auto) [place] % (Auto) Eos % (Auto) Baso % (Auto) Neut # (Auto) Lymph # (Auto) [place] # (Auto) Eos # (Auto) Baso # (Auto) WBC Differential Differential Comment ESR PT INR APTT Fibrinogen POC Sodium Sodium POC Potassium Potassium POC Chloride Chloride Carbon Dioxide Anion Gap POC BUN BUN Creatinine POC Creatinine Estimated GFR POC Glucose 92 Random Glucose Calcium Total Creatine Kinase CK-MB (CK-2) CK-MB (CK-2) % Troponin I Triglycerides 108 Cholesterol 129 LDL Cholesterol, Calc 46 HDL Cholesterol 61.7 H Cholesterol/HDL Ratio 2.09 Vitamin B12 Folate TSH Free T4 Urine Color Urine Clarity Urine pH Ur Specific [place] Urine Protein Urine Glucose (UA) Urine Ketones Urine Occult Blood Urine Nitrate Urine Bilirubin Urine Urobilinogen Ur Leukocyte Esterase Urine RBC Urine WBC Urine WBC Clumps Ur Squamous Epith Cells Urine Bacteria Urine Mucus Micro UA Comment Urine Culture Comments Nasal Screen MRSA (PCR) Not detected Blood Type Blood Type Recheck Antibody Screen 10/23/17 08:04 WBC RBC Hgb POC Hgb (Calc) Hct POC Hct MCV MCH MCHC RDW Plt Count MPV Neut % (Auto) Lymph % (Auto) [place] % (Auto) Eos % (Auto) Baso % (Auto) Neut # (Auto) Lymph # (Auto) [place] # (Auto) Eos # (Auto) Baso # (Auto) WBC Differential Differential Comment ESR PT INR APTT Fibrinogen POC Sodium Sodium POC Potassium Potassium POC Chloride Chloride Carbon Dioxide Anion Gap POC BUN BUN Creatinine POC Creatinine Estimated GFR POC Glucose 112 H Random Glucose Calcium Total Creatine Kinase CK-MB (CK-2) CK-MB (CK-2) % Troponin I Triglycerides Cholesterol LDL Cholesterol, Calc HDL Cholesterol Cholesterol/HDL Ratio Vitamin B12 Folate TSH Free T4 Urine Color Urine Clarity Urine pH Ur Specific [place] Urine Protein Urine Glucose (UA) Urine Ketones Urine Occult Blood Urine Nitrate Urine Bilirubin Urine Urobilinogen Ur Leukocyte Esterase Urine RBC Urine WBC Urine WBC Clumps Ur Squamous Epith Cells Urine Bacteria Urine Mucus Micro UA Comment Urine Culture Comments Nasal Screen MRSA (PCR) Blood Type Blood Type Recheck Antibody Screen - Imaging Impressions Head MRI 10/22/17 00:00 CONCLUSION: 1. Acute or subacute infarct in the right frontoparietal region. 2. Minimal white matter changes Chest X-Ray 10/22/17 15:52 CONCLUSION: Negative examination. Head CT 10/22/17 15:52 CONCLUSION: Findings suspicious for subtle edema along the right insular ribbon and the right frontal lobe. This could represent early cytotoxic edema related to ischemia. These findings were telephoned to Dr. Mandujano at 4:15 PM on 10/22/2017. Head CTA 10/22/17 15:52 CONCLUSION: Focal proximal occlusion of the superior division branch of the right middle cerebral artery. Neck CTA 10/22/17 15:52 CONCLUSION: No evidence of carotid stenosis Assessment and Plan - Assessment (1) Acute CVA (cerebrovascular accident) Code(s): I63.9 - Cerebral infarction, unspecified Status: Acute - Plan 61-year-old female presents with left facial droop, confusion, mild dysarthria 1. Acute CVAadmit for further evaluation. Stroke alert initiated with consult to neurology. Appreciate neurology's recommendations. Continue aspirin. Await 2D echo, continue close neurological checks in the intensive care unit. Check fasting lipid profile which showed LDL 46 and hemoglobin A1c currently pending, consult PT and ST. neurology recommends head of bed flat and for another 24 hours and then able to elevate head. 2. Hypertensive emergency -permissive blood pressure for next 24 hours secondary to acute stroke. Will consider starting antihypertensive in the next 24 hours. 3. Tobacco abusecessation counseling 4. DVT prophylaxisLovenox. 5. Chronic left sciatic painher back pain exacerbated by laying flat per stroke protocol. Lidoderm patch at this time
[2017-10-23] MEDS: Acetaminophen 325 MG Tablet PO PRN (14:33)
[2017-10-23] MEDS: Lidocaine 5% Patch T-DERMAL SCH (14:33)
[2017-10-23 15:51] LABS: Anti-Nuclear Antibody Screen Neg (Neg)
[2017-10-23 16:19] LABS: Hemoglobin A1c 5.7 % (4.3-6.0)
[2017-10-23] MEDS: Enoxaparin Inj 40 MG/0.4 ML Syringe SQ SCH (18:14)
[2017-10-24] MEDS: Sod Chloride 0.9% Inj 1,000 ML IV.CONT SCH ×2 (00:28→17:58)
[2017-10-24] MEDS: Lidocaine 5% Patch T-DERMAL SCH (09:51)
[2017-10-24] MEDS: Aspirin 325 MG Tablet PO SCH (09:51)
[2017-10-24] MEDS: Ciprofloxacin 500 MG Tablet PO SCH (09:51)
[2017-10-24] MEDS: Insulin NovoLOG Aspart Correctional Sugar Inj SQ SCH ×3 (11:48→22:21)
[2017-10-24] MEDS: amLODIPine 5 MG Tablet PO SCH (11:57)
--- NOTE | 2017-10-24 12:17 | P.PNIM ---
Subjective Interval history: No focalized weakness or numbness. No headaches. Doing well. Physical Exam Vital signs: Vital Signs 10/23/17 16:00 10/23/17 19:00 10/23/17 19:59 Temperature 98.8 F Pulse Rate 86 79 Respiratory Rate 20 Blood Pressure 189/91 H Pulse Oximetry 100 99 10/23/17 20:00 10/23/17 21:40 10/24/17 00:00 Temperature 99.1 F 98.0 F Pulse Rate 74 76 Respiratory Rate 20 22 Blood Pressure 153/75 H 142/65 H Pulse Oximetry 100 96 100 10/24/17 04:00 10/24/17 09:30 Temperature 97.9 F Pulse Rate 70 Respiratory Rate 18 Blood Pressure 172/77 H Pulse Oximetry 100 97 Intake & Output 10/23/17 10/24/17 10/24/17 18:59 06:59 18:59 Intake Total 480 / 480 1240 / 1240 Output Total 500 / 500 1100 / 1100 Balance -20 / -20 140 / 140 Weight 103.2 kg Intake: IV 1000 / 1000 NS Inj 1,000 ML @ 70 mls/hr IV. 1000 / 1000 CONT .[id number] [facility] Rx#:[id number] Oral 480 / 480 240 / 240 Output: Urine Amount (Catheter) 500 / 500 1100 / 1100 Female External 500 / 500 1100 / 1100 Other: # Voids 1 1 Narrative: GENERAL: This is a well-nourished, well-developed patient, in no apparent distress. CARDIOVASCULAR: Regular rate and rhythm without murmurs, gallops, or rubs. RESPIRATORY: Clear to auscultation. Breath sounds equal bilaterally. No wheezes , rales, or rhonchi. GASTROINTESTINAL: Abdomen soft, non-tender, nondistended. Normal active bowel sounds MUSCULOSKELETAL: Extremities without clubbing, cyanosis, or edema. NEURO: Alert & Oriented x4 to person, place, time, situation. Motor strength 5 out of 5 bilateral upper extremity and lower extremities,, minor left facial droop moves all ext x4 - Urinary Catheter Management Female External Cath placed during this visit: no Results - Labs CBC & Chem 7: 10/22/17 15:55 10/22/17 15:55 Laboratory Results - last 24 hr 10/22/17 10/23/17 10/23/17 20:18 04:29 17:47 POC Glucose 77 Hemoglobin A1c 5.7 ARMEN Screen Neg RPR Nonreactive 10/23/17 10/24/17 20:42 08:48 POC Glucose 119 H 99 Hemoglobin A1c ARMEN Screen RPR Microbiology 10/22/17 17:05 Catheterized Urine Urine Culture - Final No growth in 48 hours Assessment and Plan - Assessment (1) Acute CVA (cerebrovascular accident) Code(s): I63.9 - Cerebral infarction, unspecified Status: Acute - Plan 61-year-old female presents with left facial droop, confusion, mild dysarthria 1. Acute CVAprevious stroke alert initiated with consult to neurology. Appreciate neurology's recommendations. Continue aspirin. Await 2D echo results, transfer out of intensive care unit. Check fasting lipid profile which showed LDL 46 and hemoglobin A1c 5.7, consult PT and ST. 2. Hypertensive emergency -blood pressure has improved and will start amlodipine today 3. Tobacco abusecessation counseling 4. DVT prophylaxisLovenox. 5. Chronic left sciatic painher back pain exacerbated by laying flat per stroke protocol. Lidoderm patch at this time, this is improved.
--- NOTE | 2017-10-24 15:00 | ECHRPT ---
Indication: CVA/TIA CONCLUSIONS The left ventricular systolic function is severely reduced with an estimated ejection fraction in th e range of 20-25%. Mildly dilated left ventricle. Mild concentric left ventricular hypertrophy. There is global left ventricular dysfunction. The left atrial size is bhky-br-diprcjytwg dilated. Pyxs-bx-qjvvyekj mitral valve regurgitation. There is trace tricuspid valve regurgitation. Normal estimated pulmonary pressures. BP: / HR: Rhythm: Sinus MEASUREMENTS (Male / Female) Normal Values Technical Quality:Good 2D ECHO LV Diastolic Diameter PLAX 5.2 cm 4.2 - 5.9 / 3.9 - 5.3 cm LV Systolic Diameter PLAX 5.1 cm IVS Diastolic Thickness 1.2 cm 0.6 - 1.0 / 0.6 - 0.9 cm LVPW Diastolic Thickness 1.2 cm 0.6 - 1.0 / 0.6 - 0.9 cm LV Relative Wall Thickness 0.5 RV Internal Dim ED PLAX 2.1 cm LVOT Diameter 1.7 cm LA Systolic Diameter LX 4.4 cm 3.0 - 4.0 / 2.7 - 3.8 cm LV Ejection Fraction MOD 4C 26.0 % LV Ejection Fraction 4C AL 26.2 % M-MODE Aortic Root Diameter MM 2.2 cm LA Systolic Diameter MM 4.8 cm LA Ao Ratio MM 2.2 AV Cusp Separation MM 2.0 cm DOPPLER AV Peak Velocity 135.0 cm/s AV Peak Gradient 7.3 mmHg LVOT Peak Velocity 107.0 cm/s LVOT Peak Gradient 4.6 mmHg AV Area Cont Eq pk 1.8 cm MV Area PHT 5.6 cm Mitral E Point Velocity 92.8 cm/s Mitral A Point Velocity 56.8 cm/s Mitral E to A Ratio 1.6 LV E' Lateral Velocity 7.5 cm/s Mitral E to LV E' Lateral Ratio 12.4 LV E' Septal Velocity 5.2 cm/s Mitral E to LV E' Septal Ratio 17.9 TR Peak Velocity 128.0 cm/s TR Peak Gradient 6.6 mmHg Right Atrial Pressure 10.0 mmHg Pulmonary Artery Systolic Pressu 16.6 mmHg Right Ventricular Systolic Press 16.6 mmHg FINDINGS LEFT VENTRICLE The left ventricular systolic function is severely reduced with an estimated ejection fraction in th e range of 20-25%. Mildly dilated left ventricle. Mild concentric left ventricular hypertrophy. There is global left ventricular dysfunction. RIGHT VENTRICLE Normal right ventricular size and systolic function. LEFT ATRIUM The left atrial size is xbxz-kz-nbickgpzsy dilated. RIGHT ATRIUM The right atrial size is normal. ATRIAL SEPTUM Normal atrial septal thickness without atrial level shunting by limited color doppler interrogation. AORTA The aortic root and proximal ascending aorta are normal in size on limited imaging. MITRAL VALVE Structurally normal mitral valve. Ybrc-ak-rogtbctq mitral valve regurgitation. AORTIC VALVE Trileaflet aortic valve. No aortic valve stenosis or regurgitation. TRICUSPID VALVE Structurally normal tricuspid valve. There is trace tricuspid valve regurgitation. Normal estimated pulmonary pressures. PULMONARY VALVE No pulmonary valve regurgitation or stenosis. VESSELS The inferior vena cava is normal in size. PERICARDIUM No pericardial effusion. Michele Baird MD (Electronically Signed) Final Date:24 October 2017 15:00
--- NOTE | 2017-10-24 17:45 | P.PNNEU ---
Subjective Subjective Comments: no new c/o. feels strong on left side Active Medications: Active Medications Acetaminophen (Tylenol) 650 mg PO Q4H PRN PRN Reason: pain 1 to 10 Last Admin: 10/23/17 14:33 Dose: 650 mg Amlodipine Besylate (Norvasc) 5 mg PO DAILY [facility] Last Admin: 10/24/17 11:57 Dose: 5 mg Aspirin (Aspirin) 325 mg PO DAILY [facility] Last Admin: 10/24/17 09:51 Dose: 325 mg Dextrose (D50w Vial) 50 ml IV.PUSH UNSCH PRN PRN Reason: PER HYPOGLYCEMIA PROTOCOL Enalaprilat (Vasotec Inj) 1.25 mg IV.PUSH Q4H PRN PRN Reason: For SBP > 220 or DBP > 120 Last Admin: 10/23/17 17:12 Dose: 1.25 mg Enoxaparin Sodium (Lovenox Inj) 40 mg SQ Q24H [facility] Last Admin: 10/23/17 18:14 Dose: 40 mg Glucagon (Glucagon Inj) 1 mg OTHER UNSCH PRN PRN Reason: for Hypoglycemia Protocol Sodium Chloride (Ns Inj) 1,000 mls @ 70 mls/hr IV.CONT .[id number] [facility] Last Admin: 10/24/17 00:28 Dose: 70 mls/hr Insulin Aspart (Novolog Insulin Correctional Sugar Inj) 0 unit SQ ACHS [facility]; Protocol Last Admin: 10/24/17 11:48 Dose: Not Given Lidocaine HCl (Lidoderm 5% Patch.12 Hr) 1 patch T-DERMAL DAILY [facility] Last Admin: 10/24/17 09:51 Dose: 1 patch Patch Removal (Remove Old Patch) 1 each T-DERMAL HS [facility] Last Admin: 10/23/17 21:00 Dose: 1 each Sodium Chloride (Ns Flush) 2 ml IV.FLUSH BID [facility] Last Admin: 10/24/17 09:51 Dose: 2 ml Sodium Chloride (Ns Flush) 2 ml IV.FLUSH PRN PRN PRN Reason: FLUSH AFTER USING IV ACCESS Allergies/Adverse Reactions: Allergies Allergy/AdvReac Type Severity Reaction Status Date / Time No Known Allergies Allergy Unverified 10/22/17 16:09 Physical Exam Vital signs: Vital Signs 10/23/17 19:00 10/23/17 19:59 10/23/17 20:00 Temperature 99.1 F Pulse Rate 79 74 Respiratory Rate 20 Blood Pressure 153/75 H Pulse Oximetry 99 100 10/23/17 21:40 10/24/17 00:00 10/24/17 04:00 Temperature 98.0 F 97.9 F Pulse Rate 76 70 Respiratory Rate 22 18 Blood Pressure 142/65 H 172/77 H Pulse Oximetry 96 100 100 10/24/17 09:30 Temperature Pulse Rate Respiratory Rate Blood Pressure Pulse Oximetry 97 Intake & Output 10/23/17 10/24/17 10/24/17 18:59 06:59 18:59 Intake Total 480 / 480 1240 / 1240 Output Total 500 / 500 1100 / 1100 Balance -20 / -20 140 / 140 Weight 103.2 kg Intake: IV 1000 / 1000 NS Inj 1,000 ML @ 70 mls/hr IV. 1000 / 1000 CONT .[id number] [facility] Rx#:[id number] Oral 480 / 480 240 / 240 Output: Urine Amount (Catheter) 500 / 500 1100 / 1100 Female External 500 / 500 1100 / 1100 Other: # Voids 1 1 - Routine Neurological Exam alert, speech normal CN intact MOTOR 5/5 BUE - Urinary Catheter Management Female External Cath placed during this visit: no Objective Laboratory Results - last 24 hr 10/23/17 10/23/17 10/24/17 17:47 20:42 08:48 POC Glucose 77 119 H 99 10/24/17 10/24/17 12:34 17:19 POC Glucose 93 97 Microbiology 10/22/17 17:05 Urine Culture - Final Catheterized Urine No growth in 48 hours Diagnostic Tests: ECHO--EF 20-25 % dilated LV and LA Review/Management - Diagnosis (1) Acute CVA (cerebrovascular accident) Code(s): I63.9 - Cerebral infarction, unspecified Status: Acute Current Visit: Yes - Review/Management Plan: Right mca stroke--possible cardioembolic. On asa now and stable. Will allow HOB up
[2017-10-24] MEDS: Enoxaparin Inj 40 MG/0.4 ML Syringe SQ SCH (17:58)
[2017-10-25] MEDS: Acetaminophen 325 MG Tablet PO PRN ×2 (00:12→21:56)
[2017-10-25] MEDS: Sod Chloride 0.9% Inj 1,000 ML IV.CONT SCH ×2 (02:47→16:12)
[2017-10-25] MEDS: Aspirin 325 MG Tablet PO SCH (08:31)
[2017-10-25] MEDS: Lidocaine 5% Patch T-DERMAL SCH (08:31)
[2017-10-25] MEDS: amLODIPine 5 MG Tablet PO SCH (08:32)
[2017-10-25] MEDS: Insulin NovoLOG Aspart Correctional Sugar Inj SQ SCH ×4 (08:43→20:50)
--- NOTE | 2017-10-25 09:15 | P.PNIM ---
Subjective Interval history: Reports no focalized weakness or numbness. Reports headache last night. Physical Exam Vital signs: Vital Signs 10/24/17 09:30 10/24/17 12:00 10/24/17 16:00 Temperature 98.4 F 98.2 F Pulse Rate 90 92 H Respiratory Rate 34 H 32 H Blood Pressure 135/66 186/79 H Pulse Oximetry 97 98 91 L 10/24/17 19:00 10/24/17 20:00 10/25/17 00:00 Temperature 98.3 F 98.4 F Pulse Rate 88 87 77 Respiratory Rate 24 16 Blood Pressure 181/91 H 179/94 H Pulse Oximetry 100 97 10/25/17 04:00 10/25/17 08:00 10/25/17 08:34 Temperature 98 F 98.1 F Pulse Rate 74 90 Respiratory Rate 16 16 Blood Pressure 182/96 H 170/92 H Pulse Oximetry 97 97 97 Intake & Output 10/24/17 10/25/17 10/25/17 18:59 06:59 18:59 Intake Total 1720 / 1720 0 / 0 Output Total 900 / 900 Balance 820 / 820 0 / 0 Weight 103.3 kg Intake: IV 1000 / 1000 0 / 0 NS Inj 1,000 ML @ 70 mls/hr IV. 1000 / 1000 0 / 0 CONT .[id number] [facility] Rx#:[id number] Oral 720 / 720 Output: Urine 900 / 900 Other: Date of Last Bowel Movement 10/22/17 10/22/17 Narrative: GENERAL: This is a well-nourished, well-developed patient, in no apparent distress. CARDIOVASCULAR: Regular rate and rhythm . RESPIRATORY: Clear to auscultation. Breath sounds equal bilaterally. No wheezes , rales, or rhonchi. GASTROINTESTINAL: Abdomen soft, non-tender, nondistended. Normal active bowel sounds MUSCULOSKELETAL: Extremities without clubbing, cyanosis, or edema. NEURO: Alert & Oriented x4 to person, place, time, situation. Motor strength 5 out of 5 bilateral upper extremity and lower extremities,, minor left facial droop moves all ext x4 - Urinary Catheter Management Female External Cath placed during this visit: no Results - Labs CBC & Chem 7: 10/22/17 15:55 10/22/17 15:55 Laboratory Results - last 24 hr 10/24/17 10/24/1718 12:34 17:19 22:15 POC Glucose 93 97 93 Microbiology 10/22/17 17:05 Catheterized Urine Urine Culture - Final No growth in 48 hours Assessment and Plan - Assessment (1) Acute CVA (cerebrovascular accident) Code(s): I63.9 - Cerebral infarction, unspecified Status: Acute - Plan 61-year-old female presents with left facial droop, confusion, mild dysarthria 1. Acute CVAprevious stroke alert initiated with consult to neurology. Appreciate neurology's recommendations. Continue aspirin. 2D echo results showed a EF of 20-25% with dilated left ventricle and dilated left atrial with moderate mitral regurgitation. Will obtain a cardiology consultation. May need further workup with [facility] per neurology. Check fasting lipid profile which showed LDL 46 and hemoglobin A1c 5.7, consult PT and ST. 2. Hypertensive emergency -blood pressure still uncontrolled at this time will initiate Coreg and lisinopril given low EF of 20-25%, continue with Norvasc. 3. Cardiomyopathy of 20-25% with dilated left ventricle and atrialcardiology consultation for recommendations for workup, Coreg and lisinopril 3. Tobacco abusecessation counseling 4. DVT prophylaxisLovenox. 5. Chronic left sciatic painher back pain exacerbated by laying flat per stroke protocol which is improved now patient is able to sit up. Lidoderm patch at this time, this is improved. Discharge Planning: Home when cleared by cardiology and neurology.
[2017-10-25] MEDS: Lisinopril 10 MG Tablet PO SCH (10:42)
[2017-10-25] MEDS: Carvedilol 12.5 MG Tablet PO SCH ×2 (10:42→20:46)
--- NOTE | 2017-10-25 14:32 | MB ---
cc: Sanjay Adan MD DATE: 10/25/2017 INDICATION: Stroke. HISTORY OF PRESENT ILLNESS: This is a 61-year-old female with history of hypertension, who was otherwise previously healthy, who presented with symptoms of facial droop into the emergency department. At that time, she was having some resolution in symptoms and was felt not to be a candidate for thrombolysis. A CT of the brain showed early changes in the right frontal and right insular region. CT of the head showed a right MCA distal occlusion. We were consulted for consideration of cardioembolic event and transesophageal echocardiogram. PAST MEDICAL HISTORY: Hypertension. SOCIAL HISTORY: Reports occasional tobacco use. Denies any drugs or alcohol. FAMILY HISTORY: Denies any family history of early coronary disease or sudden cardiac . MEDICATIONS: None. REVIEW OF SYSTEMS: A 12-point review of systems was performed, negative unless otherwise noted in history of present illness. PHYSICAL EXAMINATION: VITAL SIGNS: Heart rate 90, blood pressure 170/92 mmHg. GENERAL: Alert and oriented x3, in no acute distress. HEENT: Shows pupils reactive to light and accommodation. Extraocular movements are intact. NECK: No elevation or increased distention. No thyromegaly. No lymphadenopathy. No carotid bruits. LUNGS: Clear to auscultation bilaterally. CARDIOVASCULAR: Regular rate and rhythm without murmurs, rubs, or gallops. ABDOMEN: Tender, nondistended. Good bowel sounds. No hepatosplenomegaly. EXTREMITIES: Show no clubbing, cyanosis, or edema. Good peripheral pulses. NEUROLOGIC: Cranial nerves intact. Motor and sensory grossly intact. LABORATORY DATA: WBC 7.8, hemoglobin 13.9, platelet count 196,000. INR 1.1. Sodium 140, potassium 3.8, creatinine 0.78. Troponin negative. ASSESSMENT AND PLAN: 1. Stroke. 2. Hypertension. PLAN: The patient has imaging confirmation for stroke. No arrhythmias on telemetry. We will make n.p.o. after midnight for transesophageal echocardiogram to rule out cardioembolic etiology. Management with aspirin per neurology. MD MANUEL Rivers/flavia , 12:27 PM , 12:35 PM
[2017-10-25] MEDS: Enoxaparin Inj 40 MG/0.4 ML Syringe SQ SCH (17:05)
[2017-10-26] MEDS ORDERED: Chlorhexidine Gluconate 2% 1 Pack (2 Cloths) TOPICAL SCH (01:30)
[2017-10-26] MEDS ORDERED: Sodium Chlor 0.9% Inj 500 ML IV.SIG SCH (02:00)
--- NOTE | 2017-10-26 08:48 | P.PNCA ---
<Andre Sheffield - Last Filed: 10/26/17 08:46> Subjective Interval history: Patient denies any residual neurologic deficits. She denies any chest pain, shortness of breath, palpitations. Telemetry with 6 beats NSVT, no A. fib. N.p.o. for LAURA and stress test today, agreeable to proceed, all questions answered. Physical Exam Vital signs: Vital Signs 10/25/17 11:28 10/25/17 12:00 10/25/17 16:00 Temperature 98.7 F 98.3 F Pulse Rate 77 79 Respiratory Rate 14 16 Blood Pressure 142/77 H 138/77 Pulse Oximetry 97 98 97 10/25/17 20:00 10/26/17 00:00 10/26/17 01:00 Temperature 98.3 F 98.6 F Pulse Rate 83 83 Respiratory Rate 17 16 16 Blood Pressure 144/69 H 138/67 Pulse Oximetry 97 97 10/26/17 04:00 10/26/17 06:30 Temperature 98.6 F Pulse Rate 72 Respiratory Rate 17 16 Blood Pressure 141/75 H Pulse Oximetry 98 Intake & Output 10/25/17 10/26/17 10/26/17 18:59 06:59 18:59 Intake Total 1640 / 1640 Output Total 1999 / 1999 Balance -360 / -360 Weight 227 lb 15.327 oz Intake: Oral 1640 / 1640 Output: Urine 900 / 900 Urine Amount (Catheter) 1100 / 1100 Female External 1100 / 1100 Other: # Voids 4 Date of Last Bowel Movement 10/22/17 10/22/17 # Bowel Movements 2 Narrative: GENERAL: Well-developed well-nourished. In no acute distress. NECK: No carotid bruits. No JVD. CARDIOVASCULAR: Regular rate and rhythm. No murmur appreciated. RESPIRATORY: No accessory muscle use. Clear to auscultation. Breath sounds equal bilaterally. MUSCULOSKELETAL: No clubbing or cyanosis. No edema. NEUROLOGICAL: Awake and alert. Normal speech. - Urinary Catheter Management Female External Cath placed during this visit: no Assessment and Plan - Plan 61-year-old female admitted for CVA CVA: No A. fib noted, continue telemetry monitoring. N.p.o. for LAURA today. Antiplatelet/anticoagulation per neurology. Cardiomyopathy: Echo with EF 2025%, global hypokinesis. Lexiscan ordered. On lisinopril and carvedilol. Discussed Condition With: Patient, Dr. Adan <LocoSanjay - Last Filed: 10/26/17 10:50> Physical Exam Vital signs: Vital Signs 10/25/17 11:28 10/25/17 12:00 10/25/17 16:00 Temperature 98.7 F 98.3 F Pulse Rate 77 79 Respiratory Rate 14 16 Blood Pressure 142/77 H 138/77 Pulse Oximetry 97 98 97 10/25/17 20:00 10/26/17 00:00 10/26/17 01:00 Temperature 98.3 F 98.6 F Pulse Rate 83 83 Respiratory Rate 17 16 16 Blood Pressure 144/69 H 138/67 Pulse Oximetry 97 97 10/26/17 04:00 10/26/17 06:30 10/26/17 08:00 Temperature 98.6 F 97.8 F Pulse Rate 72 71 Respiratory Rate 17 16 18 Blood Pressure 141/75 H 149/77 H Pulse Oximetry 98 97 10/26/17 10:41 Temperature Pulse Rate Respiratory Rate Blood Pressure Pulse Oximetry 98 Intake & Output 10/25/17 10/26/17 10/26/17 18:59 06:59 18:59 Intake Total 1640 / 1640 1000 / 1000 Output Total 1999 / 1999 Balance -360 / -360 1000 / 1000 Weight 103.4 kg Intake: IV 1000 / 1000 NS Inj 1,000 ML @ 70 mls/hr IV. 1000 / 1000 CONT .[id number] MICHEL Rx#:[id number] Oral 1640 / 1640 Output: Urine 900 / 900 Urine Amount (Catheter) 1100 / 1100 Female External 1100 / 1100 Other: # Voids 4 Date of Last Bowel Movement 10/22/17 10/22/17 # Bowel Movements 2 - Urinary Catheter Management Female External Cath placed during this visit: no Assessment and Plan - Attending Attestation -------- LAURA - reduced EF 25%. mild-mod MR. small mobile LV apical thrombus present. No PFO. no NEL thrombus. Needs anticoagulation x 3 months with repeat TTE. lovenox -> coumadin. lexiscan. NSVT - cont med mgt. if lexiscan nonischemic, consider LifeVest
--- NOTE | 2017-10-26 09:19 | P.PNIM ---
Subjective Interval history: 61-year-old female with no past medical history presents to the emergency room after she was found wandering in the grocery store and having friends noticed left facial droop. She states prior to going to the grocery store she was in the bathroom and fell but was able to get up at that time at 11 :00 however going to grow sure she felt "not herself". Her friends also noted she had difficulty with her speech however she blames on recent dentures that was placed in. Nursing staff at the bedside the emergency room stated that she initially had garbled speech when she presented in the emergency room however has improved at this time. She denies any focalized weakness or numbness. She denies any numbness or tingling at this time. 8-17 Complaining of left sciatic back pain that she is laying flat. No complaints of headache visual changes nor any focalized weakness or numbness. Feeling okay. 8-18 No focalized weakness or numbness. No headaches. Doing well. 8-19 Reports no focalized weakness or numbness. Reports headache last night. 8-20 FOLLOW UP ON EF 20 TO 25% TO HAVE LAURA TODAY AND STRESS TEST NEUROLOGY WANTS HER STARTED ON COUMADIN TODAY DW RN AND PT AND NEUROLOGY Physical Exam Vital signs: Vital Signs 10/25/17 11:28 10/25/17 12:00 10/25/17 16:00 Temperature 98.7 F 98.3 F Pulse Rate 77 79 Respiratory Rate 14 16 Blood Pressure 142/77 H 138/77 Pulse Oximetry 97 98 97 10/25/17 20:00 10/26/17 00:00 10/26/17 01:00 Temperature 98.3 F 98.6 F Pulse Rate 83 83 Respiratory Rate 17 16 16 Blood Pressure 144/69 H 138/67 Pulse Oximetry 97 97 10/26/17 04:00 10/26/17 06:30 Temperature 98.6 F Pulse Rate 72 Respiratory Rate 17 16 Blood Pressure 141/75 H Pulse Oximetry 98 Intake & Output 10/25/17 10/26/17 10/26/17 18:59 06:59 18:59 Intake Total 1640 / 1640 Output Total 1999 / 1999 Balance -360 / -360 Weight 103.4 kg Intake: Oral 1640 / 1640 Output: Urine 900 / 900 Urine Amount (Catheter) 1100 / 1100 Female External 1100 / 1100 Other: # Voids 4 Date of Last Bowel Movement 10/22/17 10/22/17 # Bowel Movements 2 Narrative: GENERAL: This is a well-nourished, well-developed patient, in no apparent distress. No acute distress awake alert and oriented 3 talkative and cooperative PERRLA EOMI Oral mucosa is moist tongue deviates slightly to the left Neck is supple there is no obvious JVD CARDIOVASCULAR: Regular rate and rhythm . S1-S2 no S3 or S4 no heave or thrill or rub or gallop RESPIRATORY: Clear to auscultation. Breath sounds equal bilaterally. No wheezes , rales, or rhonchi. GASTROINTESTINAL: Abdomen soft, non-tender, nondistended. Normal active bowel sounds MUSCULOSKELETAL: Extremities without clubbing, cyanosis, or edema. NEURO: Alert & Oriented x4 to person, place, time, situation. Motor strength 5 out of 5 bilateral upper extremity and lower extremities,, minor left facial droop moves all ext x4 Insight and judgment is good Mood behaviors appropriate - Urinary Catheter Management Female External Cath placed during this visit: no Results - Labs CBC & Chem 7: 10/22/17 15:55 10/22/17 15:55 Laboratory Results - last 24 hr 10/25/17 10/25/17 10/25/17 12:17 14:55 17:03 POC Glucose 84 104 Troponin I 0.02 10/25/17 10/26/17 20:48 07:49 POC Glucose 140 H 98 Troponin I - Imaging Head MRI 10/22/17 00:00 CONCLUSION: 1. Acute or subacute infarct in the right frontoparietal region. 2. Minimal white matter changes Chest X-Ray 10/22/17 15:52 CONCLUSION: Negative examination. Head CT 10/22/17 15:52 CONCLUSION: Findings suspicious for subtle edema along the right insular ribbon and the right frontal lobe. This could represent early cytotoxic edema related to ischemia. These findings were telephoned to Dr. Mandujano at 4:15 PM on 10/22/2017. Head CTA 10/22/17 15:52 CONCLUSION: Focal proximal occlusion of the superior division branch of the right middle cerebral artery. Neck CTA 10/22/17 15:52 CONCLUSION: No evidence of carotid stenosis - Procedures LAURA Assessment and Plan - Assessment (1) Acute CVA (cerebrovascular accident) Code(s): I63.9 - Cerebral infarction, unspecified Status: Acute - Plan 61-year-old female presents with left facial droop, confusion, mild dysarthria 1. Acute CVAprevious stroke alert initiated with consult to neurology. Appreciate neurology's recommendations. Continue aspirin. 2D echo results showed a EF of 20-25% with dilated left ventricle and dilated left atrial with moderate mitral regurgitation. Will obtain a cardiology consultation. May need further workup with LAURA per neurology. Check fasting lipid profile which showed LDL 46 and hemoglobin A1c 5.7, consult PT and ST. -Patient is scheduled to have LAURA today and stress test 2. Hypertensive emergency -blood pressure still uncontrolled at this time will initiate Coreg and lisinopril given low EF of 20-25%, continue with Norvasc. 3. Cardiomyopathy of 20-25% with dilated left ventricle and atrialcardiology consultation for recommendations for workup, Coreg and lisinopril--neurology wants her started on Coumadin 3. Tobacco abusecessation counseling 4. DVT prophylaxisLovenox. 5. Chronic left sciatic painher back pain exacerbated by laying flat per stroke protocol which is improved now patient is able to sit up. Lidoderm patch at this time, this is improved. Patient will need to be started on Coumadin per neurology 5 mg p.o. daily Code Status: Full code Discussed Condition With: RN and patient and case management and neurology and cardiology Discharge Planning: Discharge when cleared by all
--- NOTE | 2017-10-26 09:22 | P.PNNEU ---
Subjective Subjective Comments: doing well sr Active Medications: Active Medications Acetaminophen (Tylenol) 650 mg PO Q4H PRN PRN Reason: pain 1 to 10 Last Admin: 10/25/17 21:56 Dose: 650 mg Amlodipine Besylate (Norvasc) 5 mg PO DAILY [facility] Last Admin: 10/25/17 08:32 Dose: 5 mg Aspirin (Aspirin) 325 mg PO DAILY [facility] Last Admin: 10/25/17 08:31 Dose: 325 mg Carvedilol (Coreg) 12.5 mg PO BID [facility] Last Admin: 10/25/17 20:46 Dose: 12.5 mg Chlorhexidine Gluconate (Chlorhexidine 2% Cloth) 3 pack [employer] [facility] Stop: 10/29/17 01:22 Dextrose (D50w Vial) 50 ml IV.PUSH UNSCH PRN PRN Reason: PER HYPOGLYCEMIA PROTOCOL Enalaprilat (Vasotec Inj) 1.25 mg IV.PUSH Q4H PRN PRN Reason: For SBP > 220 or DBP > 120 Last Admin: 10/23/17 17:12 Dose: 1.25 mg Enoxaparin Sodium (Lovenox Inj) 40 mg SQ Q24H [facility] Last Admin: 10/25/17 17:05 Dose: 40 mg Glucagon (Glucagon Inj) 1 mg OTHER UNSCH PRN PRN Reason: for Hypoglycemia Protocol Sodium Chloride (Ns Inj) 1,000 mls @ 70 mls/hr IV.CONT .[id number] [facility] Last Infusion: 10/26/17 08:31 Dose: 0 mls/hr Lactated Ringer's (Lr 1000 Ml Inj) 1,000 mls @ 30 mls/hr IV.SIG .Q24H [facility] Stop: 10/29/17 01:22 Last Admin: 10/26/17 06:52 Dose: Not Given Sodium Chloride (Ns Inj) 500 mls @ 30 mls/hr IV.SIG .Q10H [facility] Stop: 10/29/17 01:22 Insulin Aspart (Novolog Insulin Correctional Sugar Inj) 0 unit SQ ACHS [facility]; Protocol Last Admin: 10/25/17 20:50 Dose: Not Given Lidocaine HCl (Lidoderm 5% Patch.12 Hr) 1 patch T-DERMAL DAILY [facility] Last Admin: 10/25/17 08:31 Dose: 1 patch Lisinopril (Prinivil) 10 mg PO DAILY [facility] Last Admin: 10/25/17 10:42 Dose: 10 mg Patch Removal (Remove Old Patch) 1 each T-DERMAL HS [facility] Last Admin: 10/26/17 06:51 Dose: 1 each Povidone Iodine (Betadine 5% Antisepsis Kit) 1 applicatio EACH [employer] [facility] Stop: 10/29/17 01:22 Sodium Chloride (Ns Flush) 2 ml IV.FLUSH BID [facility] Last Admin: 10/26/17 06:51 Dose: 2 ml Sodium Chloride (Ns Flush) 2 ml IV.FLUSH PRN PRN PRN Reason: FLUSH AFTER USING IV ACCESS Allergies/Adverse Reactions: Allergies Allergy/AdvReac Type Severity Reaction Status Date / Time No Known Allergies Allergy Unverified 10/22/17 16:09 Physical Exam Vital signs: Vital Signs 10/25/17 11:28 10/25/17 12:00 10/25/17 16:00 Temperature 98.7 F 98.3 F Pulse Rate 77 79 Respiratory Rate 14 16 Blood Pressure 142/77 H 138/77 Pulse Oximetry 97 98 97 10/25/17 20:00 10/26/17 00:00 10/26/17 01:00 Temperature 98.3 F 98.6 F Pulse Rate 83 83 Respiratory Rate 17 16 16 Blood Pressure 144/69 H 138/67 Pulse Oximetry 97 97 10/26/17 04:00 10/26/17 06:30 Temperature 98.6 F Pulse Rate 72 Respiratory Rate 17 16 Blood Pressure 141/75 H Pulse Oximetry 98 Intake & Output 10/25/17 10/26/17 10/26/17 18:59 06:59 18:59 Intake Total 1640 / 1640 Output Total 1999 / 1999 Balance -360 / -360 Weight 103.4 kg Intake: Oral 1640 / 1640 Output: Urine 900 / 900 Urine Amount (Catheter) 1100 / 1100 Female External 1100 / 1100 Other: # Voids 4 Date of Last Bowel Movement 10/22/17 10/22/17 # Bowel Movements 2 Narrative: awake alert vff 5/5 speech nl - Urinary Catheter Management Female External Cath placed during this visit: no Objective Laboratory Results - last 24 hr 10/25/17 10/25/17 10/25/17 12:17 14:55 17:03 POC Glucose 84 104 Troponin I 0.02 10/25/17 10/26/17 20:48 07:49 POC Glucose 140 H 98 Troponin I Review/Management - Diagnosis (1) Acute CVA (cerebrovascular accident) Code(s): I63.9 - Cerebral infarction, unspecified Status: Acute Current Visit: Yes - Review/Management Plan: Right mca stroke--likely cardioembolic. On asa now and stable. oob ok she needs coumadin ef 20-25% and la 44 could do loop saira i amanda jara he is doing today
[2017-10-26] MEDS: Insulin NovoLOG Aspart Correctional Sugar Inj SQ SCH ×4 (10:05→21:13)
[2017-10-26] MEDS: Sod Chloride 0.9% Inj 1,000 ML IV.CONT SCH ×2 (10:12→21:16)
[2017-10-26] MEDS: amLODIPine 5 MG Tablet PO SCH (11:00)
[2017-10-26] MEDS: Carvedilol 12.5 MG Tablet PO SCH ×2 (11:00→21:14)
[2017-10-26] MEDS: Aspirin 325 MG Tablet PO SCH (11:00)
[2017-10-26] MEDS: Lisinopril 10 MG Tablet PO SCH (11:00)
[2017-10-26] MEDS: Lidocaine 5% Patch T-DERMAL SCH (11:01)
--- NOTE | 2017-10-26 11:25 | ECHRPT ---
Indication: CE CONCLUSIONS Moderately dilated left ventricle. Wall thickness is measured at the upper limits of normal. The left ventricular systolic function is severely reduced with an estimated ejection fraction in th e range of 20-25%. There is diffuse global hypokinesis with distinct regional wall motion abnormalities. Small mobile left ventricular apical thrombus. Normal left atrial appendage size with no evidence of thrombus formation. Normal atrial septal thickness without atrial level shunting by limited color doppler interrogation. No atrial level shunt is demonstrated by color flow Doppler interrogation. No atrial level shunt is observed with agitated saline contrast administration. Mild thickening of the mitral valve leaflets. Mild mitral valve regurgitation. Mild mitral annular calcification. No mitral valve stenosis. Mild tricuspid valve stenosis. BP: / HR: Rhythm: MEASUREMENTS (Male / Female) Normal Values Technical Quality: DOPPLER TR Peak Velocity 271.0 cm/s TR Peak Gradient 29.4 mmHg Medications Complications Proc. Components The patient was brought to the diagnostic imaging area in a fasting state after o btaining an informed consent. The patient was premedicated with IV Versed and IV Fentanyl. The manufacturing intern ior pharynx was sprayed with Cetacaine spray and the patient was administered viscous Xylocaine 2 %. The LAURA probe was passed into the posterior pharynx , mid-esophagus, distal esophagus, and gastric fundus. LAURA was performed at multiple levels. The patient tolerated the procedure well and there were no complications. The patient was transferred to the floor in satisfactory condition.. FINDINGS LEFT VENTRICLE Moderately dilated left ventricle. Wall thickness is measured at the upper limits of normal. The left ventricular systolic function is severely reduced with an estimated ejection fraction in th e range of 20-25%. There is diffuse global hypokinesis with distinct regional wall motion abnormalities. Small mobile left ventricular apical thrombus. RIGHT VENTRICLE Normal right ventricular size and systolic function. LEFT ATRIUM The left atrial size is normal. RIGHT ATRIUM The right atrial size is normal. ATRIAL APPENDAGES Normal left atrial appendage size with no evidence of thrombus formation. ATRIAL SEPTUM Normal atrial septal thickness without atrial level shunting by limited color doppler interrogation. No atrial level shunt is demonstrated by color flow Doppler interrogation. No atrial level shunt is observed with agitated saline contrast administration. AORTA The aortic root and proximal ascending aorta are normal in size on limited imaging. MITRAL VALVE Mild thickening of the mitral valve leaflets. Mild mitral valve regurgitation. Mild mitral annular calcification. No mitral valve stenosis. AORTIC VALVE Trileaflet aortic valve. No aortic valve stenosis or regurgitation. TRICUSPID VALVE Mild tricuspid valve stenosis. VESSELS The inferior vena cava is normal in size. PULMONARY VALVE The pulmonary valve is not well visualized. PERICADIUM No pericardial effusion. Sanjay Adan MD, FACC (Electronically Signed) Final Date:26 October 2017 11:23
[2017-10-26] MEDS ORDERED: Lidocaine PF 1% Inj 5 ML Syringe INFILTRATN ONE (12:00)
[2017-10-26 12:16] LABS: Free T4 (Free Thyroxine) 0.87 ng/dL (0.76-1.46); Thyroid Stimulating Hormone 6.69 uIU/mL (0.358-3.740)
--- NOTE | 2017-10-26 12:27 | P.DCO ---
- Physical Therapy Order: Evaluate and treat, Improve ambulation, Strength and gait training - Speech Therapy Order: To improve: Speech and communication skills, Cognitive skills, Swallowing - Home Health Nursing Order: Medical education, Signs/symptoms of disease process, Medication education-adverse effect, Nursing assessment with vital signs - Certification I have seen patient Shobha Riley on 10/26/17. My clinical findings support the need for the requested home health care services because: Limited mobility due to disease progression, Deconditioned with increased weakness, Medication compliance is questionable, Limited ability to care for self, Impaired cognition/judgement, High risk of falls I certify that my clinical findings support that this patient is homebound because: Impaired cognitive ability/safety, Unsteady gait/balance, Unsafe to leave home unassisted, Unable to use public transportation
[2017-10-26] MEDS ORDERED: Regadenoson Inj 0.4 MG/5 ML Syringe IV.PUSH ONE (12:33)
[2017-10-26] MEDS: Enoxaparin Inj 100 MG/ML Syringe SQ SCH ×2 (14:27→21:14)
--- NOTE | 2017-10-26 14:39 | NM ---
EXAM DATE: 10/26/2017 1:44 PM EDT AGE/SEX: 61 years / Female INDICATIONS:Congestive heart failure. . CLINICAL DATA: This is the patient's initial encounter. Patient reports that signs and symptoms have been present for 1 day and indicates a pain score of 0/10. MEDICAL/SURGICAL HISTORY: Hypertension. None. COMPARISON: No prior exams available for comparison. No external comparison. DOSE: 10.0 mCi Tc 99m Myoview at rest 30.0 mCi [id number] at stress 0.4 mg Lexiscan STRESS SYMPTOMS: Headache. EJECTION FRACTION: 22 % TECHNIQUE: The patient underwent pharmacologic stress with infusion of prescribed dose. Continuous ECG tracing was monitored during stress. Gated SPECT imaging was performed after stress and conventi onal SPECT imaging was performed at rest. The examination was performed on a SPECT/CT scanner, both attenuation and non-corrected datasets were reviewed. FINDINGS: Distribution: The maximum perfused segment at stress is in the anterolateral wall. Perfusion Study: The pattern of perfusion at stress is within normal limits. Gated Study: Pronounced left ventricular chamber dilatation and global hypokinesis. The ejection fr action is calculated at 22%. RISK CATEGORY: High (>3% Annual Morality Rate) CONCLUSION: 1. Severe LV chamber dilatation and LV dysfunction. 2. No evidence of ischemia Electronically signed by: Adria Olsen MD 10/26/2017 2:38 PM EDT
[2017-10-26 15:02] LABS: Hemoglobin A1c 5.6 % (4.3-6.0)
[2017-10-26] MEDS ORDERED: Acetaminophen 325 MG Tablet PO PRN (16:44)
[2017-10-26] MEDS ORDERED: Morphine Inj 4 MG/ML Vial IV.PUSH PRN ×2 (16:44)
[2017-10-26] MEDS ORDERED: Naloxone Inj 0.4 MG/ML Vial IV.PUSH PRN (16:44)
[2017-10-26] MEDS: Methocarbamol 500 MG Tablet PO SCH ×2 (18:47→21:14)
[2017-10-27] MEDS: Methocarbamol 500 MG Tablet PO SCH ×3 (06:55→21:33)
--- NOTE | 2017-10-27 07:21 | P.PNNEU ---
Subjective Subjective Comments: saira showed lv thrombus mobile Active Medications: Active Medications Acetaminophen (Tylenol) 650 mg PO Q4H PRN PRN Reason: pain 1 to 10 Last Admin: 10/25/17 21:56 Dose: 650 mg Acetaminophen (Tylenol) 650 mg PO Q6HR PRN PRN Reason: PAIN SCALE 1 TO 2 Amlodipine Besylate (Norvasc) 5 mg PO DAILY [facility] Last Admin: 10/26/17 11:00 Dose: 5 mg Aspirin (Aspirin) 325 mg PO DAILY [facility] Last Admin: 10/26/17 11:00 Dose: 325 mg Carvedilol (Coreg) 12.5 mg PO BID [facility] Last Admin: 10/26/17 21:14 Dose: 12.5 mg Chlorhexidine Gluconate (Chlorhexidine 2% Cloth) 3 pack TOPICAL MEDTRONICS TECHNICIAN [facility] Stop: 10/29/17 01:22 Dextrose (D50w Vial) 50 ml IV.PUSH UNSCH PRN PRN Reason: PER HYPOGLYCEMIA PROTOCOL Enalaprilat (Vasotec Inj) 1.25 mg IV.PUSH Q4H PRN PRN Reason: For SBP > 220 or DBP > 120 Last Admin: 10/23/17 17:12 Dose: 1.25 mg Enoxaparin Sodium (Lovenox Inj) 100 mg SQ Q12HR [facility] Last Admin: 10/26/17 21:14 Dose: 100 mg Glucagon (Glucagon Inj) 1 mg OTHER UNSCH PRN PRN Reason: for Hypoglycemia Protocol Sodium Chloride (Ns Inj) 1,000 mls @ 70 mls/hr IV.CONT .[id number] [facility] Last Admin: 10/26/17 21:16 Dose: 70 mls/hr Lactated Ringer's (Lr 1000 Ml Inj) 1,000 mls @ 30 mls/hr IV.SIG .Q24H [facility] Stop: 10/29/17 01:22 Last Admin: 10/27/17 06:49 Dose: Not Given Sodium Chloride (Ns Inj) 500 mls @ 30 mls/hr IV.SIG .Q10H [facility] Stop: 10/29/17 01:22 Insulin Aspart (Novolog Insulin Correctional Sugar Inj) 0 unit SQ ACHS [facility]; Protocol Last Admin: 10/26/17 21:13 Dose: Not Given Lidocaine HCl (Lidoderm 5% Patch.12 Hr) 1 patch T-DERMAL DAILY [facility] Last Admin: 10/26/17 11:01 Dose: 1 patch Lisinopril (Prinivil) 10 mg PO DAILY [facility] Last Admin: 10/26/17 11:00 Dose: 10 mg Methocarbamol (Robaxin) 1,000 mg PO Q8HR [facility] Last Admin: 10/27/17 06:55 Dose: 1,000 mg Morphine Sulfate (Morphine Inj) 2 mg IV.PUSH Q3H PRN PRN Reason: PAIN 3-5; IF UABLE TO TAKE PO Morphine Sulfate (Morphine Inj) 4 mg IV.PUSH Q3H PRN PRN Reason: PAIN 6-10;IF UNABLE TO TAKE PO Naloxone HCl (Narcan Inj) 0.4 mg IV.PUSH UNSCH PRN PRN Reason: SEE LABEL COMMENTS Oxycodone/Acetaminophen (Percocet 10/325 Mg) 1 tab PO Q6H PRN PRN Reason: PAIN SCALE 6 TO 10 Oxycodone/Acetaminophen (Percocet 5/325 Mg) 1 tab PO Q6H PRN PRN Reason: PAIN SCALE 3 TO 5 Patch Removal (Remove Old Patch) 1 each T-DERMAL HS [facility] Last Admin: 10/26/17 21:15 Dose: 1 each Povidone Iodine (Betadine 5% Antisepsis Kit) 1 applicatio EACH [employer] TECHNICIAN [facility] Stop: 10/29/17 01:22 Sodium Chloride (Ns Flush) 2 ml IV.FLUSH BID [facility] Last Admin: 10/26/17 21:15 Dose: 2 ml Sodium Chloride (Ns Flush) 2 ml IV.FLUSH PRN PRN PRN Reason: FLUSH AFTER USING IV ACCESS Warfarin Sodium (Coumadin) 5 mg PO DAILY@1600 [facility] Last Admin: 10/26/17 16:30 Dose: 5 mg Allergies/Adverse Reactions: Allergies Allergy/AdvReac Type Severity Reaction Status Date / Time No Known Allergies Allergy Unverified 10/22/17 16:09 Physical Exam Vital signs: Vital Signs 10/26/17 08:00 10/26/17 10:41 10/26/17 12:00 Temperature 97.8 F 97.4 F L Pulse Rate 71 65 Respiratory Rate 18 18 Blood Pressure 149/77 H 141/77 H Pulse Oximetry 97 98 97 10/26/17 16:00 10/26/17 16:15 10/26/17 20:00 Temperature 97.3 F L 97.9 F Pulse Rate 69 67 76 Respiratory Rate 18 19 Blood Pressure 142/72 H 132/65 Pulse Oximetry 95 96 10/26/17 23:16 10/27/17 00:00 10/27/17 00:12 Temperature 97.9 F Pulse Rate 85 74 67 Respiratory Rate 17 Blood Pressure 138/79 Pulse Oximetry 96 10/27/17 04:00 10/27/17 04:06 Temperature 98.5 F Pulse Rate 69 69 Respiratory Rate 17 Blood Pressure 138/77 Pulse Oximetry 97 Intake & Output 10/26/17 10/27/17 10/27/17 18:59 06:59 18:59 Intake Total 1000 / 1000 1000 / 1000 Balance 1000 / 1000 1000 / 1000 Weight 104 kg Intake: IV 1000 / 1000 1000 / 1000 NS Inj 1,000 ML @ 70 mls/hr IV. 1000 / 1000 1000 / 1000 CONT .[id number] [facility] Rx#:[id number] Other: # Voids 3 Date of Last Bowel Movement 10/22/17 Narrative: mild left droop vff 5/5 - Urinary Catheter Management Female External Cath placed during this visit: no Objective Laboratory Results - last 24 hr 10/26/17 10/26/17 10/26/17 07:49 11:32 11:32 POC Glucose 98 Hemoglobin A1c 5.6 TSH 6.690 H Free T4 0.87 10/26/17 10/26/17 10/26/17 11:41 16:34 21:12 POC Glucose 103 84 128 H Hemoglobin A1c TSH Free T4 Review/Management - Diagnosis (1) Acute CVA (cerebrovascular accident) Code(s): I63.9 - Cerebral infarction, unspecified Status: Acute Current Visit: Yes - Review/Management Plan: Right mca stroke--likely cardioembolic. On asa now and stable. oob ok she needs coumadin ef 20-25% and la 44 could do loop saira i dw dr jara he is doing today 10/27/17 saira showed lv thrombus on lovenox and coumadin now can dc when inr>1.9 defer to cards on rx of that and length of coumadin i would suspect lifelong rx however
--- NOTE | 2017-10-27 07:43 | P.PNCA ---
<Andre Sheffield - Last Filed: 10/27/17 07:40> Subjective Interval history: Patient has no complaints today. No chest pain, shortness breath, palpitations. Telemetry appears to show no arrhythmia overnight. Physical Exam Vital signs: Vital Signs 10/26/17 08:00 10/26/17 10:41 10/26/17 12:00 Temperature 97.8 F 97.4 F L Pulse Rate 71 65 Respiratory Rate 18 18 Blood Pressure 149/77 H 141/77 H Pulse Oximetry 97 98 97 10/26/17 16:00 10/26/17 16:15 10/26/17 20:00 Temperature 97.3 F L 97.9 F Pulse Rate 69 67 76 Respiratory Rate 18 19 Blood Pressure 142/72 H 132/65 Pulse Oximetry 95 96 10/26/17 23:16 10/27/17 00:00 10/27/17 00:12 Temperature 97.9 F Pulse Rate 85 74 67 Respiratory Rate 17 Blood Pressure 138/79 Pulse Oximetry 96 10/27/17 04:00 10/27/17 04:06 Temperature 98.5 F Pulse Rate 69 69 Respiratory Rate 17 Blood Pressure 138/77 Pulse Oximetry 97 Intake & Output 10/26/17 10/27/17 10/27/17 18:59 06:59 18:59 Intake Total 1000 / 1000 1000 / 1000 Balance 1000 / 1000 1000 / 1000 Weight 229 lb 4.492 oz Intake: IV 1000 / 1000 1000 / 1000 NS Inj 1,000 ML @ 70 mls/hr IV. 1000 / 1000 1000 / 1000 CONT .[id number] [facility] Rx#:[id number] Other: # Voids 3 Date of Last Bowel Movement 10/22/17 Narrative: GENERAL: Well-developed well-nourished. In no acute distress. NECK: No carotid bruits. No JVD. CARDIOVASCULAR: Regular rate and rhythm. No murmur appreciated. RESPIRATORY: No accessory muscle use. Clear to auscultation. Breath sounds equal bilaterally. MUSCULOSKELETAL: No clubbing or cyanosis. No edema. NEUROLOGICAL: Awake and alert. Normal speech. - Urinary Catheter Management Female External Cath placed during this visit: no Assessment and Plan - Plan 61-year-old female admitted for CVA CVA: No A. fib noted, continue telemetry monitoring. Nonischemic cardiomyopathy: Lexiscan with no ischemia. Echo with EF 2025%, global hypokinesis. On lisinopril and carvedilol. Recommend LifeVest at discharge. LV thrombus: Seen on LAURA 10/26. Lovenox -> warfarin. DC planning Discussed Condition With: Patient, Dr. Adan <Panchito Morocho - Last Filed: 10/27/17 07:51> Physical Exam Vital signs: Vital Signs 10/26/17 08:00 10/26/17 10:41 10/26/17 12:00 Temperature 97.8 F 97.4 F L Pulse Rate 71 65 Respiratory Rate 18 18 Blood Pressure 149/77 H 141/77 H Pulse Oximetry 97 98 97 10/26/17 16:00 10/26/17 16:15 10/26/17 20:00 Temperature 97.3 F L 97.9 F Pulse Rate 69 67 76 Respiratory Rate 18 19 Blood Pressure 142/72 H 132/65 Pulse Oximetry 95 96 10/26/17 23:16 10/27/17 00:00 10/27/17 00:12 Temperature 97.9 F Pulse Rate 85 74 67 Respiratory Rate 17 Blood Pressure 138/79 Pulse Oximetry 96 10/27/17 04:00 10/27/17 04:06 Temperature 98.5 F Pulse Rate 69 69 Respiratory Rate 17 Blood Pressure 138/77 Pulse Oximetry 97 Intake & Output 10/26/17 10/27/17 10/27/17 18:59 06:59 18:59 Intake Total 1000 / 1000 1000 / 1000 Balance 1000 / 1000 1000 / 1000 Weight 104 kg Intake: IV 1000 / 1000 1000 / 1000 NS Inj 1,000 ML @ 70 mls/hr IV. 1000 / 1000 1000 / 1000 CONT .[id number] [facility] Rx#:[id number] Other: # Voids 3 Date of Last Bowel Movement 10/22/17 - Urinary Catheter Management Female External Cath placed during this visit: no Assessment and Plan - Plan Patient seen and examined. agree with above. d/c on carvedilol 12.5mg bid and lisinopril 20mg daily, warfarin with INR 2-3, lovenox sq bridge until therapeutic. f/u as outpatient in 2-3 weeks. <Sanjay Adan - Last Filed: 10/27/17 07:58> Physical Exam Vital signs: Vital Signs 10/26/17 08:00 10/26/17 10:41 10/26/17 12:00 Temperature 97.8 F 97.4 F L Pulse Rate 71 65 Respiratory Rate 18 18 Blood Pressure 149/77 H 141/77 H Pulse Oximetry 97 98 97 10/26/17 16:00 10/26/17 16:15 10/26/17 20:00 Temperature 97.3 F L 97.9 F Pulse Rate 69 67 76 Respiratory Rate 18 19 Blood Pressure 142/72 H 132/65 Pulse Oximetry 95 96 10/26/17 23:16 10/27/17 00:00 10/27/17 00:12 Temperature 97.9 F Pulse Rate 85 74 67 Respiratory Rate 17 Blood Pressure 138/79 Pulse Oximetry 96 10/27/17 04:00 10/27/17 04:06 Temperature 98.5 F Pulse Rate 69 69 Respiratory Rate 17 Blood Pressure 138/77 Pulse Oximetry 97 Intake & Output 10/26/17 10/27/17 10/27/17 18:59 06:59 18:59 Intake Total 1000 / 1000 1000 / 1000 Balance 1000 / 1000 1000 / 1000 Weight 104 kg Intake: IV 1000 / 1000 1000 / 1000 NS Inj 1,000 ML @ 70 mls/hr IV. 1000 / 1000 1000 / 1000 CONT .[id number] [facility] Rx#:[id number] Other: # Voids 3 Date of Last Bowel Movement 10/22/17 - Urinary Catheter Management Female External Cath placed during this visit: no Assessment and Plan - Attending Attestation call with questions will sign off FU PCP
[2017-10-27] MEDS: Enoxaparin Inj 100 MG/ML Syringe SQ SCH ×2 (08:27→21:32)
[2017-10-27] MEDS: Carvedilol 12.5 MG Tablet PO SCH ×2 (08:27→21:32)
[2017-10-27] MEDS: amLODIPine 5 MG Tablet PO SCH (08:27)
[2017-10-27] MEDS: Lidocaine 5% Patch T-DERMAL SCH (08:28)
[2017-10-27] MEDS: Insulin NovoLOG Aspart Correctional Sugar Inj SQ SCH ×4 (08:31→21:32)
[2017-10-27 09:05] LABS: Baso % (Auto) 0.3 % (0.0-2.0); Eos # (Auto) 0.3 th/mm3 (0.0-0.4); Eos % (Auto) 4.9 % (0.0-4.0); Hematocrit 39.3 % (35.0-46.0); Hemoglobin 13.4 gm/dL (11.6-15.3); Lymph % (Auto) 27.8 % (9.0-44.0); Mean Corpuscular HGB Conc 34.2 % (32.0-36.0); Mean Corpuscular Volume 90.8 fL (80.0-100.0); Mean Platelet Volume 10.8 fL (7.0-11.0); Mono # (Auto) 0.5 th/mm3 (0.0-0.9); Mono % (Auto) 6.9 % (0.0-8.0); Neut # (Auto) 4.2 th/mm3 (1.8-7.7); Neut % (Auto) 60.1 % (16.0-70.0); Platelet Count 171 th/mm3 (150-450); Red Blood Count 4.33 mil/mm3 (4.00-5.30); Red Cell Distribution Width 13.3 % (11.6-17.2)
[2017-10-27 09:13] LABS: INR 1.1 Ratio; Prothrombin Time 10.8 sec (9.8-11.6)
[2017-10-27 09:34] LABS: Albumin 3.4 g/dL (3.4-5.0); Anion Gap 11 meq/L (5-15); Aspartate Aminotransferase 35 U/L (15-37); Blood Urea Nitrogen 10 mg/dL (7-18); Calcium 8.8 mg/dL (8.5-10.1); Carbon Dioxide 23.3 meq/L (21.0-32.0); Chloride 107 meq/L (98-107); Glomerular Filtration Rate Greater Than 89 mL/min (>89); Glucose,Random 104 mg/dL (74-106); Sodium 141 meq/L (136-145)
[2017-10-27 09:35] LABS: Alanine Aminotransferase 34 U/L (10-53); Cholesterol 111 mg/dL (120-200); Triglycerides 88 mg/dL (42-150)
[2017-10-27 09:38] LABS: Alkaline Phosphatase 64 U/L (45-117); Chol/HDL Ratio 1.99 Ratio; HDL Cholesterol 55.7 mg/dL (40.0-60.0); LDL Cholesterol,Calculated 38 mg/dL (0-99); Phosphorus 3.8 mg/dL (2.5-4.9)
--- NOTE | 2017-10-27 10:29 | P.PNIM ---
Subjective Interval history: 61-year-old female with no past medical history presents to the emergency room after she was found wandering in the grocery store and having friends noticed left facial droop. She states prior to going to the grocery store she was in the bathroom and fell but was able to get up at that time at 11 :00 however going to grow sure she felt "not herself". Her friends also noted she had difficulty with her speech however she blames on recent dentures that was placed in. Nursing staff at the bedside the emergency room stated that she initially had garbled speech when she presented in the emergency room however has improved at this time. She denies any focalized weakness or numbness. She denies any numbness or tingling at this time. 8-17 Complaining of left sciatic back pain that she is laying flat. No complaints of headache visual changes nor any focalized weakness or numbness. Feeling okay. 8-18 No focalized weakness or numbness. No headaches. Doing well. 8-19 Reports no focalized weakness or numbness. Reports headache last night. 8-20 FOLLOW UP ON EF 20 TO 25% TO HAVE LAURA TODAY AND STRESS TEST NEUROLOGY WANTS HER STARTED ON COUMADIN TODAY DW RN AND PT AND NEUROLOGY POSITIVE CLOT PER LAURA NEEDS COUMADIN AND LOVENOX FULL DOSE BID WILL NEED INR 2.0 TO 3.0 8- on coumadin and lovenox will need goal INR OF 2.0 TO 3.0 PRIOR TO DISCHARGE SINCE HAS NO PCP YET GOT COUMADIN DIET EDUCATION AM LABS LOAD COUMADIN DW RN AND PT AND CM Physical Exam Vital signs: Vital Signs 10/26/17 10:41 10/26/17 12:00 10/26/17 16:00 Temperature 97.4 F L 97.3 F L Pulse Rate 65 69 Respiratory Rate 18 18 Blood Pressure 141/77 H 142/72 H Pulse Oximetry 98 97 95 10/26/17 16:15 10/26/17 20:00 10/26/17 23:16 Temperature 97.9 F Pulse Rate 67 76 85 Respiratory Rate 19 Blood Pressure 132/65 Pulse Oximetry 96 10/27/17 00:00 10/27/17 00:12 10/27/17 04:00 Temperature 97.9 F 98.5 F Pulse Rate 74 67 69 Respiratory Rate 17 17 Blood Pressure 138/79 138/77 Pulse Oximetry 96 97 10/27/17 04:06 10/27/17 08:00 Temperature Pulse Rate 69 65 Respiratory Rate 16 Blood Pressure 133/84 Pulse Oximetry 99 Intake & Output 10/26/17 10/27/17 10/27/17 18:59 06:59 18:59 Intake Total 1000 / 1000 1000 / 1000 Balance 1000 / 1000 1000 / 1000 Weight 104 kg Intake: IV 1000 / 1000 1000 / 1000 NS Inj 1,000 ML @ 70 mls/hr IV. 1000 / 1000 1000 / 1000 CONT .[id number] [facility] Rx#:[id number] Other: # Voids 3 Date of Last Bowel Movement 10/22/17 10/27/17 Narrative: GENERAL: This is a well-nourished, well-developed patient, in no apparent distress. No acute distress awake alert and oriented 3 talkative and cooperative PERRLA EOMI Oral mucosa is moist tongue deviates slightly to the left Neck is supple there is no obvious JVD CARDIOVASCULAR: Regular rate and rhythm . S1-S2 no S3 or S4 no heave or thrill or rub or gallop RESPIRATORY: Clear to auscultation. Breath sounds equal bilaterally. No wheezes , rales, or rhonchi. GASTROINTESTINAL: Abdomen soft, non-tender, nondistended. Normal active bowel sounds MUSCULOSKELETAL: Extremities without clubbing, cyanosis, or edema. NEURO: Alert & Oriented x4 to person, place, time, situation. Motor strength 5 out of 5 bilateral upper extremity and lower extremities,, minor left facial droop moves all ext x4 Insight and judgment is good Mood behaviors appropriate - Urinary Catheter Management Female External Cath placed during this visit: no Results - Labs CBC & Chem 7: 10/27/17 08:41 10/27/17 08:41 Laboratory Results - last 24 hr 10/26/17 10/26/17 10/26/17 11:32 11:32 11:41 WBC RBC Hgb Hct MCV MCH MCHC RDW Plt Count MPV Neut % (Auto) Lymph % (Auto) [place] % (Auto) Eos % (Auto) Baso % (Auto) Neut # (Auto) Lymph # (Auto) [place] # (Auto) Eos # (Auto) Baso # (Auto) WBC Differential Differential Comment PT INR Sodium Potassium Chloride Carbon Dioxide Anion Gap BUN Creatinine Estimated GFR POC Glucose 103 Random Glucose Hemoglobin A1c 5.6 Calcium Phosphorus Magnesium Total Bilirubin AST ALT Alkaline Phosphatase Total Protein Albumin Triglycerides Cholesterol LDL Cholesterol, Calc HDL Cholesterol Cholesterol/HDL Ratio TSH 6.690 H Free T4 0.87 10/26/17 10/26/17 10/27/17 16:34 21:12 08:25 WBC RBC Hgb Hct MCV MCH MCHC RDW Plt Count MPV Neut % (Auto) Lymph % (Auto) [place] % (Auto) Eos % (Auto) Baso % (Auto) Neut # (Auto) Lymph # (Auto) [place] # (Auto) Eos # (Auto) Baso # (Auto) WBC Differential Differential Comment PT INR Sodium Potassium Chloride Carbon Dioxide Anion Gap BUN Creatinine Estimated GFR POC Glucose 84 128 H 88 Random Glucose Hemoglobin A1c Calcium Phosphorus Magnesium Total Bilirubin AST ALT Alkaline Phosphatase Total Protein Albumin Triglycerides Cholesterol LDL Cholesterol, Calc HDL Cholesterol Cholesterol/HDL Ratio TSH Free T4 10/27/17 10/27/17 10/27/17 08:41 08:41 08:41 WBC 7.0 RBC 4.33 Hgb 13.4 Hct 39.3 MCV 90.8 MCH 31.0 MCHC 34.2 RDW 13.3 Plt Count 171 MPV 10.8 Neut % (Auto) 60.1 Lymph % (Auto) 27.8 [place] % (Auto) 6.9 Eos % (Auto) 4.9 H Baso % (Auto) 0.3 Neut # (Auto) 4.2 Lymph # (Auto) 2.0 [place] # (Auto) 0.5 Eos # (Auto) 0.3 Baso # (Auto) 0.0 WBC Differential . Differential Comment Auto diff final PT 10.8 INR 1.1 Sodium 141 Potassium 4.0 Chloride 107 Carbon Dioxide 23.3 Anion Gap 11 BUN 10 Creatinine 0.64 Estimated GFR Greater than 89 POC Glucose Random Glucose 104 Hemoglobin A1c Calcium 8.8 Phosphorus 3.8 Magnesium 2.0 Total Bilirubin 0.9 AST 35 ALT 34 Alkaline Phosphatase 64 Total Protein 7.0 Albumin 3.4 Triglycerides 88 Cholesterol 111 L LDL Cholesterol, Calc 38 HDL Cholesterol 55.7 Cholesterol/HDL Ratio 1.99 TSH Free T4 - Imaging Impressions Myocardial Perfusion Scan Nuc Med 10/26/17 00:00 CONCLUSION: 1. Severe LV chamber dilatation and LV dysfunction. 2. No evidence of ischemia - Procedures LAURA 8-20 Moderately dilated left ventricle. Wall thickness is measured at the upper limits of normal. The left ventricular systolic function is severely reduced with an estimated ejection fraction in the range of 20-25%. There is diffuse global hypokinesis with distinct regional wall motion abnormalities. Small mobile left ventricular apical thrombus. Normal left atrial appendage size with no evidence of thrombus formation. Normal atrial septal thickness without atrial level shunting by limited color doppler interrogation. No atrial level shunt is demonstrated by color flow Doppler interrogation. No atrial level shunt is observed with agitated saline contrast administration. Mild thickening of the mitral valve leaflets. Mild mitral valve regurgitation. Mild mitral annular calcification. No mitral valve stenosis. Mild tricuspid valve stenosis. Assessment and Plan - Assessment (1) Weakness Code(s): R53.1 - Weakness Status: Acute (2) Gait instability Code(s): R26.81 - Unsteadiness on feet Status: Acute (3) Risk for falls Code(s): Z91.81 - History of falling Status: Acute (4) Acute CVA (cerebrovascular accident) Code(s): I63.9 - Cerebral infarction, unspecified Status: Acute - Plan 61-year-old female presents with left facial droop, confusion, mild dysarthria 1. Acute CVAprevious stroke alert initiated with consult to neurology. Appreciate neurology's recommendations. Continue aspirin. 2D echo results showed a EF of 20-25% with dilated left ventricle and dilated left atrial with moderate mitral regurgitation. Will obtain a cardiology consultation. May need further workup with LAURA per neurology. Check fasting lipid profile which showed LDL 46 and hemoglobin A1c 5.7, consult PT and ST. -Patient is scheduled to have LAURA today and stress test HAD LAURA WITH CLOT IN LEFT VENTRICULAR APICAL THROMBUS 2. Hypertensive emergency -blood pressure still uncontrolled at this time will initiate Coreg and lisinopril given low EF of 20-25%, continue with Norvasc. 3. Cardiomyopathy of 20-25% with dilated left ventricle and atrialcardiology consultation for recommendations for workup, Coreg and lisinopril--neurology wants her started on Coumadin 3. Tobacco abusecessation counseling 4. DVT prophylaxisLovenox. 5. Chronic left sciatic painher back pain exacerbated by laying flat per stroke protocol which is improved now patient is able to sit up. Lidoderm patch at this time, this is improved. Patient will need to be started on Coumadin per neurology 5 mg p.o. daily Code Status: FULL CODE Discussed Condition With: RN AND PT AND CM AND FAMILY Discharge Planning: Discharge when cleared by all AND INR BETWEEN 2.0 AND 3.0
[2017-10-27] MEDS: Sod Chloride 0.9% Inj 1,000 ML IV.CONT SCH (12:14)
[2017-10-27] MEDS: Lisinopril 20 MG Tablet PO SCH (12:14)
[2017-10-27] MEDS: Acetaminophen 325 MG Tablet PO PRN (21:33)
[2017-10-28] MEDS: oxyCODONE/Acetaminophen 10/325 Tablet PO PRN (03:34)
[2017-10-28] MEDS: Methocarbamol 500 MG Tablet PO SCH ×3 (06:49→23:53)
[2017-10-28] MEDS: Sod Chloride 0.9% Inj 1,000 ML IV.CONT SCH (06:51)
[2017-10-28 08:26] LABS: INR 1.1 Ratio; Prothrombin Time 11.3 sec (9.8-11.6)
[2017-10-28] MEDS: Insulin NovoLOG Aspart Correctional Sugar Inj SQ SCH ×4 (09:13→23:54)
--- NOTE | 2017-10-28 10:06 | P.PNNEU ---
Subjective Active Medications: Active Medications Acetaminophen (Tylenol) 650 mg PO Q4H PRN PRN Reason: pain 1 to 10 Last Admin: 10/27/17 21:33 Dose: 650 mg Acetaminophen (Tylenol) 650 mg PO Q6HR PRN PRN Reason: PAIN SCALE 1 TO 2 Amlodipine Besylate (Norvasc) 5 mg PO DAILY [facility] Last Admin: 10/27/17 08:27 Dose: 5 mg Carvedilol (Coreg) 12.5 mg PO BID [facility] Last Admin: 10/27/17 21:32 Dose: 12.5 mg Chlorhexidine Gluconate (Chlorhexidine 2% Cloth) 3 pack TOPICAL IMMIGRATION JUDGE [facility] Stop: 10/29/17 01:22 Dextrose (D50w Vial) 50 ml IV.PUSH UNSCH PRN PRN Reason: PER HYPOGLYCEMIA PROTOCOL Enalaprilat (Vasotec Inj) 1.25 mg IV.PUSH Q4H PRN PRN Reason: For SBP > 220 or DBP > 120 Last Admin: 10/23/17 17:12 Dose: 1.25 mg Enoxaparin Sodium (Lovenox Inj) 100 mg SQ Q12HR [facility] Last Admin: 10/27/17 21:32 Dose: 100 mg Glucagon (Glucagon Inj) 1 mg OTHER UNSCH PRN PRN Reason: for Hypoglycemia Protocol Sodium Chloride (Ns Inj) 1,000 mls @ 70 mls/hr IV.CONT .[id number] [facility] Last Admin: 10/28/17 06:51 Dose: 70 mls/hr Lactated Ringer's (Lr 1000 Ml Inj) 1,000 mls @ 30 mls/hr IV.SIG .Q24H [facility] Stop: 10/29/17 01:22 Last Admin: 10/28/17 06:48 Dose: Not Given Sodium Chloride (Ns Inj) 500 mls @ 30 mls/hr IV.SIG .Q10H [facility] Stop: 10/29/17 01:22 Insulin Aspart (Novolog Insulin Correctional Sugar Inj) 0 unit SQ ACHS [facility]; Protocol Last Admin: 10/28/17 09:13 Dose: Not Given Lidocaine HCl (Lidoderm 5% Patch.12 Hr) 1 patch T-DERMAL DAILY [facility] Last Admin: 10/27/17 08:28 Dose: 1 patch Lisinopril (Prinivil) 20 mg PO DAILY [facility] Last Admin: 10/27/17 12:14 Dose: 20 mg Methocarbamol (Robaxin) 1,000 mg PO Q8HR [facility] Last Admin: 10/28/17 06:49 Dose: 1,000 mg Morphine Sulfate (Morphine Inj) 2 mg IV.PUSH Q3H PRN PRN Reason: PAIN 3-5; IF UABLE TO TAKE PO Morphine Sulfate (Morphine Inj) 4 mg IV.PUSH Q3H PRN PRN Reason: PAIN 6-10;IF UNABLE TO TAKE PO Naloxone HCl (Narcan Inj) 0.4 mg IV.PUSH UNSCH PRN PRN Reason: SEE LABEL COMMENTS Ondansetron HCl (Zofran Odt) 4 mg PO Q6H PRN PRN Reason: NAUSEA OR VOMITING Oxycodone/Acetaminophen (Percocet 10/325 Mg) 1 tab PO Q6H PRN PRN Reason: PAIN SCALE 6 TO 10 Last Admin: 10/28/17 03:34 Dose: 1 tab Oxycodone/Acetaminophen (Percocet 5/325 Mg) 1 tab PO Q6H PRN PRN Reason: PAIN SCALE 3 TO 5 Patch Removal (Remove Old Patch) 1 each T-DERMAL HS [facility] Last Admin: 10/27/17 21:34 Dose: 1 each Povidone Iodine (Betadine 5% Antisepsis Kit) 1 applicatio EACH [employer] IMM[employer]RATION JUDGE [facility] Stop: 10/29/17 01:22 Sodium Chloride (Ns Flush) 2 ml IV.FLUSH BID [facility] Last Admin: 10/27/17 21:33 Dose: Not Given Sodium Chloride (Ns Flush) 2 ml IV.FLUSH PRN PRN PRN Reason: FLUSH AFTER USING IV ACCESS Warfarin Sodium (Coumadin) 5 mg PO DAILY@1600 [facility] Last Admin: 10/27/17 17:07 Dose: 5 mg Allergies/Adverse Reactions: Allergies Allergy/AdvReac Type Severity Reaction Status Date / Time No Known Allergies Allergy Unverified 10/22/17 16:09 Physical Exam Vital signs: Vital Signs 10/27/17 12:00 10/27/17 16:00 10/27/17 20:00 Temperature 97.1 F L 97.6 F 98.3 F Pulse Rate 68 72 73 Respiratory Rate 16 16 17 Blood Pressure 145/74 H 130/65 148/79 H Pulse Oximetry 96 98 99 10/28/17 00:00 10/28/17 04:00 10/28/17 08:00 Temperature 97.9 F 98.1 F 98.8 F Pulse Rate 71 69 75 Respiratory Rate 18 18 Blood Pressure 125/60 131/71 146/67 H Pulse Oximetry 97 95 98 Intake & Output 10/27/17 10/28/17 10/28/17 18:59 06:59 18:59 Intake Total 2079 / 2079 3560 / 3560 Balance 2079 / 2079 3560 / 3560 Intake: IV 1000 / 1000 3080 / 3080 NS Inj 1,000 ML @ 70 mls/hr IV. 1000 / 1000 3080 / 3080 CONT .[id number] [facility] Rx#:[id number] Oral 1080 / 1080 480 / 480 Other: # Voids 3 Date of Last Bowel Movement 10/27/17 10/27/17 # Bowel Movements 1 Narrative: nl gait 5/ face sym - Urinary Catheter Management Female External Cath placed during this visit: no Objective Laboratory Results - last 24 hr 10/27/17 10/27/17 10/27/17 12:12 17:24 20:40 PT INR POC Glucose 83 126 H 92 10/28/17 10/28/17 07:13 08:22 PT 11.3 INR 1.1 POC Glucose 110 Review/Management - Diagnosis (1) Acute CVA (cerebrovascular accident) Code(s): I63.9 - Cerebral infarction, unspecified Status: Acute Current Visit: Yes - Review/Management Plan: Right mca stroke--likely cardioembolic. On asa now and stable. oob ok she needs coumadin ef 20-25% and la 44 could do loop asira i amanda jara he is doing today 10/27/17 saira showed lv thrombus on lovenox and coumadin now can dc when inr>1.9 defer to cards on rx of that and length of coumadin i would suspect lifelong rx howeve 10/28/17 stable neuro will sign off stay on coumadin lifelong
[2017-10-28] MEDS: Enoxaparin Inj 100 MG/ML Syringe SQ SCH ×2 (10:18→23:54)
[2017-10-28] MEDS: amLODIPine 5 MG Tablet PO SCH (10:19)
[2017-10-28] MEDS: Carvedilol 12.5 MG Tablet PO SCH ×2 (10:19→23:53)
[2017-10-28] MEDS: Lidocaine 5% Patch T-DERMAL SCH (10:19)
[2017-10-28] MEDS: Lisinopril 20 MG Tablet PO SCH (10:20)
--- NOTE | 2017-10-28 10:32 | P.PN ---
Subjective Interval history: Follow-up visit for CVA, positive thrombus on LAURA, HTN, and cardiomyopathy. Patient seen and examined sitting up in bed in no acute distress. She reports she had right posterior leg numbness and pain due to sciatica however this has resolved now. Patient has been ambulating with the assistance of physical therapy. She denies any fevers, chills, nausea, vomiting, diarrhea, cough, shortness of breath or chest pain. Physical Exam Vital signs: Vital Signs 10/27/17 12:00 10/27/17 16:00 10/27/17 20:00 Temperature 97.1 F L 97.6 F 98.3 F Pulse Rate 68 72 73 Respiratory Rate 16 16 17 Blood Pressure 145/74 H 130/65 148/79 H Pulse Oximetry 96 98 99 10/28/17 00:00 10/28/17 04:00 10/28/17 08:00 Temperature 97.9 F 98.1 F 98.8 F Pulse Rate 71 69 75 Respiratory Rate 17 18 18 Blood Pressure 125/60 131/71 146/67 H Pulse Oximetry 97 95 98 Intake & Output 10/27/17 10/28/17 10/28/17 18:59 06:59 18:59 Intake Total 2079 / 0 3560 / 3560 Balance 2079 / 0 3560 / 3560 Intake: IV 1000 / 1000 3080 / 3080 NS Inj 1,000 ML @ 70 mls/hr IV. 1000 / 1000 3080 / 3080 CONT .[id number] [facility] Rx#:[id number] Oral 1080 / 1080 480 / 480 Other: # Voids 3 Date of Last Bowel Movement 10/27/17 10/27/17 # Bowel Movements 1 Narrative: GENERAL: Well-nourished obese -[place] female in no acute distress. SKIN: Warm and dry. HEAD: Atraumatic. Normocephalic. EYES: Pupils equal and round. ENT: No mucous membrane bleeding. Mucous membranes pink and moist. NECK: Trachea midline. CARDIOVASCULAR: Regular rate and rhythm. RESPIRATORY: Nonlabored. Clear to auscultation. Breath sounds equal bilaterally. GASTROINTESTINAL: Abdomen soft, non-tender, nondistended. Positive bowel sounds. MUSCULOSKELETAL: Extremities without clubbing, cyanosis, or edema. No obvious deformities. NEUROLOGICAL: Awake and alert. No obvious cranial nerve deficits. Motor grossly within normal limits, no weakness noted, no facial droop. Normal speech. PSYCHIATRIC: Appropriate mood and affect; insight and judgment normal. - Urinary Catheter Management Female External Cath placed during this visit: no Results - Labs CBC & Chem 7: 10/27/17 08:41 10/27/17 08:41 Laboratory Results - last 24 hr 10/27/17 10/27/17 10/27/17 12:12 17:24 20:40 PT INR POC Glucose 83 126 H 92 10/28/17 10/28/17 07:13 08:22 PT 11.3 INR 1.1 POC Glucose 110 - Procedures LAURA 10-26 Moderately dilated left ventricle. Wall thickness is measured at the upper limits of normal. The left ventricular systolic function is severely reduced with an estimated ejection fraction in the range of 20-25%. There is diffuse global hypokinesis with distinct regional wall motion abnormalities. Small mobile left ventricular apical thrombus. Normal left atrial appendage size with no evidence of thrombus formation. Normal atrial septal thickness without atrial level shunting by limited color doppler interrogation. No atrial level shunt is demonstrated by color flow Doppler interrogation. No atrial level shunt is observed with agitated saline contrast administration. Mild thickening of the mitral valve leaflets. Mild mitral valve regurgitation. Mild mitral annular calcification. No mitral valve stenosis. Mild tricuspid valve stenosis. Assessment and Plan - Assessment (1) Weakness Code(s): R53.1 - Weakness Status: Acute (2) Gait instability Code(s): R26.81 - Unsteadiness on feet Status: Acute (3) Risk for falls Code(s): Z91.81 - History of falling Status: Acute (4) Acute CVA (cerebrovascular accident) Code(s): I63.9 - Cerebral infarction, unspecified Status: Acute - Plan 61-year-old female presents with left facial droop, confusion, mild dysarthria Acute CVA -2D echo results showed a EF of 20-25% with dilated left ventricle and dilated left atrial with moderate mitral regurgitation. Small mobile left ventricular apical thrombus also noted. -Check fasting lipid profile which showed LDL 46 and hemoglobin A1c 5.7, consult PT and ST. -Stress test completed on 10/26 showed severe LV chamber dilatation and LV dysfunction, no evidence of ischemia. -Neurology recommends lifelong Coumadin -Currently on therapeutic dose of Lovenox, increase Coumadin dose to 6 mg, discussed with Amanda and pharmacy, continue monitoring daily INRs Hypertensive emergency -BP much improved, continue Coreg, lisinopril, Norvasc. Nonischemic cardiomyopathy Cardiomyopathy of 20-25% with dilated left ventricle and atrial -Cardiology recommends continuing Coreg and lisinopril -Can discontinue aspirin as patient will now be transitioned to p.o. 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
--- NOTE | 2017-10-28 12:27 | HM ---
Date Performed: 10/23/2017 Time Performed: 09:43:00 HOOKUP DATE: 10/23/17 09:43:00 AM Fri ANALYSIS START TIME: 10/23/2017 9:48:00 AM ANALYSIS END TIME: 10/24/2017 9:21:26 AM PATIENT AGE: 61 PATIENT HEIGHT PATIENT WEIGHT DRUG LIST PATIENT DIAGNOSIS TEST NARRATIVE: The patient's average heart rate was 79 BPM. No episodes of tachycardia wer e noted. No episodes of bradycardia were noted. No pauses exceeding 2.0 seconds were noted. 24 ventricular ectopics, which represented < 1% of the total beat count, were noted. The highest brian tricular ectopic frequency occurred from 10:00 AM to 11:00 AM Fri. During this time 4 VE(s) occurred . Ventricular ectopics were observed as 21 isolated beat(s) and as 1 run(s). 19 supraventricular ectopics, which represented < 1% of the total beat count, were noted. The highest supraventricular ectopic frequency occurred from 05:00 AM to 06:00 AM Sat. During this time 6 SVE(s) occurred. No episodes of ST depression (defined as -1.0 mm or more) were noted in channel 1. No episodes of ST d epression (defined as -1.0 mm or more) were noted in channel 2. No episodes of ST depression (define d as -1.0 mm or more) were noted in channel 3. TEST INTERPRETATION: Patient was monitored for 23 hours and 33 minutes. The minimum HR was 53 an d the maximum HR was 114 with an average HR of 79. There were 21 PVCS, 1 ventricular triplet, as well as 17 PACs and one atrial couplet. Essentially unremarkable holter monitor with occasional ectopy a s above Signed by : Kwesi cruz
--- NOTE | 2017-10-28 15:28 | P.CONREH ---
History of Present Illness Service: Physical medicine and rehabilitation Consult date: 10/28/17 Reason for Consult: Comprehensive rib rotation evaluation Primary Care Provider: UNKNOWN Chief Complaint: Confusion; left facial droop History of Present Illness: Shobha Riley is a 61-year-old [id number] female admitted to [facility] 10/22/17 with left-sided facial droop, confusion and difficulty speaking. CT was suspicious for subtle edema in the right insular ribbon and right frontal lobe with possible early cytotoxic edema related to ischemia. Brain MRI showed right frontoparietal acute to subacute infarct. Neck CT 10/22/17 showed no evidence of carotid stenosis. Echocardiogram showed ejection fraction 20-25% with global hypokinesis. Patient was seen by cardiology who notes nonischemic cardiomyopathy. LifeVest has been recommended. She was found to have LV thrombus and started on Lovenox with conversion warfarin. Loop recorder is being considered. Review of Systems Constitutional: Denies headache(s), Denies weight gain, Denies weight loss Eyes: Denies change in vision, Denies double vision Ears, Nose, Mouth, and Throat: Denies difficulty swallowing Cardiovascular: Denies chest pain Respiratory: Denies shortness of breath Gastrointestinal: Denies abdominal pain, Denies constipation Genitourinary: Denies urinary incontinence Musculoskeletal: Reports abnormal walking (Improving) Skin/Breast: Denies unusual bruising Neurologic: Denies loss of vision, Denies tingling/numbness/burning sensations Psychiatric: Denies confusion Hematologic/Lymphatic: Denies easy bruising PMFSH - History History Provided By: Patient - Medical / Surgical Hx Neg / Unobtainable Medical Problems Denied: Yes - Medical History Medical History: Medical History (Last Reviewed 10/26/17 @ 09:37 by Willem Patricia CRNA) Patient denies medical problems - Surgical History Surgical History: Surgical History (Last Reviewed 10/26/17 @ 09:37 by Willem Patricia CRNA) No history of previous surgery - Family History Family History: Family History (Last Reviewed 10/24/17 @ 11:51 by Darlene Aguilar) Mother Diabetes - Tobacco History Second Hand Smoke Exposure: Yes Tobacco Use In Past 30 Days: Yes Smoking Status: Heavy tobacco smoker Tobacco Type: Cigarettes - Alcohol History How Often Do You Have a Drink Containing Alcohol: 2 to 3 times a week - Substance Use History Substance History: No History of Abuse - Travel History Recent Travel in the [place] Within the Last 8 Weeks: No Recent Travel Out of the Country Within the Last 8 Weeks: No - Immunization History Tetanus Immunization: Unsure Hx Influenza Vaccine This Season: No Medications and Allergies Active Medications: Active Medications Acetaminophen (Tylenol) 650 mg PO Q4H PRN PRN Reason: pain 1 to 10 Last Admin: 10/27/17 21:33 Dose: 650 mg Acetaminophen (Tylenol) 650 mg PO Q6HR PRN PRN Reason: PAIN SCALE 1 TO 2 Amlodipine Besylate (Norvasc) 5 mg PO DAILY [facility] Last Admin: 10/28/17 10:19 Dose: 5 mg Carvedilol (Coreg) 12.5 mg PO BID [facility] Last Admin: 10/28/17 10:19 Dose: 12.5 mg Chlorhexidine Gluconate (Chlorhexidine 2% Cloth) 3 pack [employer] TECHNICIAN [facility] Stop: 10/29/17 01:22 Dextrose (D50w Vial) 50 ml IV.PUSH UNSCH PRN PRN Reason: PER HYPOGLYCEMIA PROTOCOL Enalaprilat (Vasotec Inj) 1.25 mg IV.PUSH Q4H PRN PRN Reason: For SBP > 220 or DBP > 120 Last Admin: 10/23/17 17:12 Dose: 1.25 mg Enoxaparin Sodium (Lovenox Inj) 100 mg SQ Q12HR [facility] Last Admin: 10/28/17 10:18 Dose: 100 mg Glucagon (Glucagon Inj) 1 mg OTHER UNSCH PRN PRN Reason: for Hypoglycemia Protocol Lactated Ringer's (Lr 1000 Ml Inj) 1,000 mls @ 30 mls/hr IV.SIG .Q24H [facility] Stop: 10/29/17 01:22 Last Admin: 10/28/17 06:48 Dose: Not Given Sodium Chloride (Ns Inj) 500 mls @ 30 mls/hr IV.SIG .Q10H [facility] Stop: 10/29/17 01:22 Insulin Aspart (Novolog Insulin Correctional Sugar Inj) 0 unit SQ ACHS [facility]; Protocol Last Admin: 10/28/17 11:38 Dose: Not Given Lidocaine HCl (Lidoderm 5% Patch.12 Hr) 1 patch T-DERMAL DAILY [facility] Last Admin: 10/28/17 10:19 Dose: 1 patch Lisinopril (Prinivil) 20 mg PO DAILY [facility] Last Admin: 10/28/17 10:20 Dose: 20 mg Methocarbamol (Robaxin) 1,000 mg PO Q8HR [facility] Last Admin: 10/28/17 06:49 Dose: 1,000 mg Morphine Sulfate (Morphine Inj) 2 mg IV.PUSH Q3H PRN PRN Reason: PAIN 3-5; IF UABLE TO TAKE PO Morphine Sulfate (Morphine Inj) 4 mg IV.PUSH Q3H PRN PRN Reason: PAIN 6-10;IF UNABLE TO TAKE PO Naloxone HCl (Narcan Inj) 0.4 mg IV.PUSH UNSCH PRN PRN Reason: SEE LABEL COMMENTS Ondansetron HCl (Zofran Odt) 4 mg PO Q6H PRN PRN Reason: NAUSEA OR VOMITING Oxycodone/Acetaminophen (Percocet 10/325 Mg) 1 tab PO Q6H PRN PRN Reason: PAIN SCALE 6 TO 10 Last Admin: 10/28/17 03:34 Dose: 1 tab Oxycodone/Acetaminophen (Percocet 5/325 Mg) 1 tab PO Q6H PRN PRN Reason: PAIN SCALE 3 TO 5 Patch Removal (Remove Old Patch) 1 each T-DERMAL HS [facility] Last Admin: 10/27/17 21:34 Dose: 1 each Povidone Iodine (Betadine 5% Antisepsis Kit) 1 applicatio EACH [employer] TECHNICIAN [facility] Stop: 10/29/17 01:22 Sodium Chloride (Ns Flush) 2 ml IV.FLUSH BID [facility] Last Admin: 10/28/17 10:19 Dose: Not Given Sodium Chloride (Ns Flush) 2 ml IV.FLUSH PRN PRN PRN Reason: FLUSH AFTER USING IV ACCESS Warfarin Sodium (Coumadin) 6 mg PO DAILY@1600 [facility] Allergies Allergy/AdvReac Type Severity Reaction Status Date / Time No Known Allergies Allergy Unverified 10/22/17 16:09 Home Medications Medication Instructions Recorded Confirmed Type No Known Home Medications 10/22/17 10/22/17 History Exam - Physical Examination Vital Signs / I&O: Vital Signs 10/27/17 16:00 10/27/17 20:00 10/28/17 00:00 Temperature 97.6 F 98.3 F 97.9 F Pulse Rate 72 73 71 Respiratory Rate 16 17 17 Blood Pressure 130/65 148/79 H 125/60 Pulse Oximetry 98 99 97 10/28/17 04:00 10/28/17 08:00 10/28/17 12:00 Temperature 98.1 F 98.8 F 98.0 F Pulse Rate 69 75 71 Respiratory Rate 18 17 17 Blood Pressure 131/71 146/67 H 127/61 Pulse Oximetry 95 98 95 Intake & Output 10/27/17 10/28/17 10/28/17 18:59 06:59 18:59 Intake Total 2079 / 2079 3560 / 3560 Balance 2079 / 2079 3560 / 3560 Intake: IV 1000 / 1000 3080 / 3080 NS Inj 1,000 ML @ 70 mls/hr IV. 1000 / 1000 3080 / 3080 CONT .[id number] [facility] Rx#:[id number] Oral 1080 / 1080 480 / 480 Other: # Voids 3 Date of Last Bowel Movement 10/27/17 10/27/17 # Bowel Movements 1 Intake & Output 10/26/17 10/27/17 10/28/17 10/29/17 06:59 06:59 06:59 06:59 Intake Total 1640 / 1640 1999 5640 / 5640 Output Total 1999 Balance -360 / -360 1999 5640 / 5640 Weight 103.4 kg 104 kg General: No acute distress Respiratory: Lungs CTA, Non-labored respirations, BS equal Gastrointestinal: Positive bowel sounds, Non-distended, Non-tender Date of Last Bowel Movement: 10/27/17 Cardiovascular: Normal rate, Regular rhythm Psychiatric: Cooperative, Appropriate mood & affect - Neurologic Orientation: oriented to: Self, Situation Neurologic: Pupils (PERRLA), EOM (Intact) DTRs: Normal Babinski: Positive (Right) Clonus: Negative Results - Labs CBC & Chem 7: 10/27/17 08:41 10/27/17 08:41 Labs: Laboratory Results - last 24 hr 10/27/17 10/27/17 10/28/17 17:24 20:40 07:13 PT 11.3 INR 1.1 POC Glucose 126 H 92 10/28/17 10/28/17 08:22 11:34 PT INR POC Glucose 110 135 H Assessment and Plan - Plan Assessment: 1. Right frontoparietal acute/subacute infarct 2. Nonischemic cardiomyopathy with ejection fraction 20-25% 3. Left ventricular thrombus Recommendations: 1. Patient progressing with PT and now SBA gait 150 feet. Patient has 1 flight of steps to her apartment. Physical therapy to address. 2. OT addressing ADL's and supervision LE dressing 3. Case management is addressing home health for discharge and patient's sister will be traveling to assist her at home on 11/07/17 4. Continue fall prevention 5. Will follow while hospitalized and at discharge as appropriate Thank you for this consult.
[2017-10-29] MEDS: Methocarbamol 500 MG Tablet PO SCH ×3 (05:27→22:45)
[2017-10-29 06:29] LABS: INR 1.2 Ratio; Prothrombin Time 12.2 sec (9.8-11.6)
[2017-10-29 07:51] LABS: Dil Russell Viper Venom Conf ( ND (NEGATIVE); Dil Russell Viper Venom Time M ND (CORRECTED); Lupus Anticoagulant PTT Screen 32 seconds (< OR = 40)
[2017-10-29] MEDS: Insulin NovoLOG Aspart Correctional Sugar Inj SQ SCH ×4 (08:00→22:57)
--- NOTE | 2017-10-29 08:40 | P.PN ---
Subjective Interval history: Follow-up visit for CVA, cardiomyopathy. Patient is seen and examined sitting up on the inside of the bed eating breakfast this morning, appears to be in no acute distress. She reports she had an episode of nausea yesterday however no vomiting and received something for nausea. She denies any headache, dizziness , shortness of breath, cough, chest pain or heart palpitations. Physical Exam Vital signs: Vital Signs 10/28/17 12:00 10/28/17 16:00 10/28/17 20:00 Temperature 98.0 F 98.0 F 98.1 F Pulse Rate 71 68 81 Respiratory Rate 18 18 17 Blood Pressure 127/61 161/83 H 135/60 Pulse Oximetry 95 99 99 10/28/17 23:55 10/29/17 00:00 10/29/17 01:30 Temperature 98.3 F Pulse Rate 77 Respiratory Rate 18 16 16 Blood Pressure 134/65 Pulse Oximetry 99 10/29/17 04:00 Temperature 98.0 F Pulse Rate 69 Respiratory Rate 16 Blood Pressure 145/65 H Pulse Oximetry 97 Intake & Output 10/28/17 10/29/17 10/29/17 18:59 06:59 18:59 Intake Total 700 / 700 Balance 700 / 700 Intake: Oral 700 / 700 Other: # Voids 2 Date of Last Bowel Movement 10/27/17 10/27/17 Narrative: GENERAL: Well-nourished obese -[place]i female in no acute distress. SKIN: Warm and dry. HEAD: Atraumatic. Normocephalic. EYES: Pupils equal and round. ENT: No mucous membrane bleeding. Mucous membranes pink and moist. NECK: Trachea midline. CARDIOVASCULAR: Regular rate and rhythm. RESPIRATORY: Nonlabored. Clear to auscultation. Breath sounds equal bilaterally. GASTROINTESTINAL: Abdomen soft, non-tender, nondistended. Positive bowel sounds. MUSCULOSKELETAL: Extremities without clubbing, cyanosis, or edema. No obvious deformities. NEUROLOGICAL: Awake and alert. No obvious cranial nerve deficits. Motor grossly within normal limits, no weakness noted, no facial droop. Normal speech. PSYCHIATRIC: Appropriate mood and affect; insight and judgment normal. - Urinary Catheter Management Female External Cath placed during this visit: no Results - Labs CBC & Chem 7: 10/27/17 08:41 10/27/17 08:41 Laboratory Results - last 24 hr 10/22/17 10/28/17 10/28/17 20:18 08:22 11:34 PT INR Thrombin Time ND Lupus Anticoagulant LA PTT Screen 32 dRVVT Screen 35 LA dRVVT Confirm ND dRVVT Mix ND Hexagonal Phase Confirm ND POC Glucose 110 135 H 10/29/17 05:37 PT 12.2 H INR 1.2 Thrombin Time Lupus Anticoagulant LA PTT Screen dRVVT Screen LA dRVVT Confirm dRVVT Mix Hexagonal Phase Confirm POC Glucose - Procedures LAURA 10-26 Moderately dilated left ventricle. Wall thickness is measured at the upper limits of normal. The left ventricular systolic function is severely reduced with an estimated ejection fraction in the range of 20-25%. There is diffuse global hypokinesis with distinct regional wall motion abnormalities. Small mobile left ventricular apical thrombus. Normal left atrial appendage size with no evidence of thrombus formation. Normal atrial septal thickness without atrial level shunting by limited color doppler interrogation. No atrial level shunt is demonstrated by color flow Doppler interrogation. No atrial level shunt is observed with agitated saline contrast administration. Mild thickening of the mitral valve leaflets. Mild mitral valve regurgitation. Mild mitral annular calcification. No mitral valve stenosis. Mild tricuspid valve stenosis. Assessment and Plan - Assessment (1) Weakness Code(s): R53.1 - Weakness Status: Acute (2) Gait instability Code(s): R26.81 - Unsteadiness on feet Status: Acute (3) Risk for falls Code(s): Z91.81 - History of falling Status: Acute (4) Acute CVA (cerebrovascular accident) Code(s): I63.9 - Cerebral infarction, unspecified Status: Acute - Plan 61-year-old female presents with left facial droop, confusion, mild dysarthria Acute CVA -2D echo results showed a EF of 20-25% with dilated left ventricle and dilated left atrial with moderate mitral regurgitation. Small mobile left ventricular apical thrombus also noted. -Check fasting lipid profile which showed LDL 46 and hemoglobin A1c 5.7, consult PT and ST. -Stress test completed on 10/26 showed severe LV chamber dilatation and LV dysfunction, no evidence of ischemia. -Neurology recommends lifelong Coumadin -Currently on therapeutic dose of Lovenox along with Coumadin for bridge over. Hypertensive emergency -stable, continue Coreg, lisinopril, Norvasc. Nonischemic cardiomyopathy Cardiomyopathy of 20-25% with dilated left ventricle and atrial -Cardiology recommends continuing Coreg and lisinopril -Can discontinue aspirin as patient will now be transitioned to p.o. Coumadin -Cardiology also recommends LifeVest at discharge, this will need to be ordered by cardiology Tobacco abuse-cessation reinforced DVT prophylaxisLovenox/Coumadin Discharge Planning: Discharge once INR >1.9 and LifeVest has been obtained.
[2017-10-29] MEDS: Enoxaparin Inj 100 MG/ML Syringe SQ SCH ×2 (09:05→22:45)
[2017-10-29] MEDS: Carvedilol 12.5 MG Tablet PO SCH ×2 (09:05→22:45)
[2017-10-29] MEDS: Lisinopril 20 MG Tablet PO SCH (09:05)
[2017-10-29] MEDS: amLODIPine 5 MG Tablet PO SCH (09:05)
[2017-10-29] MEDS: Lidocaine 5% Patch T-DERMAL SCH (09:05)
[2017-10-30 04:56] LABS: INR 1.4 Ratio; Prothrombin Time 14.5 sec (9.8-11.6)
[2017-10-30] MEDS: Methocarbamol 500 MG Tablet PO SCH ×3 (06:15→21:14)
[2017-10-30] MEDS: Insulin NovoLOG Aspart Correctional Sugar Inj SQ SCH ×4 (08:00→21:15)
[2017-10-30] MEDS: Carvedilol 12.5 MG Tablet PO SCH ×2 (09:43→21:15)
[2017-10-30] MEDS: Lidocaine 5% Patch T-DERMAL SCH (09:43)
[2017-10-30] MEDS: Enoxaparin Inj 100 MG/ML Syringe SQ SCH ×2 (09:43→21:15)
[2017-10-30] MEDS: oxyCODONE/Acetaminophen 10/325 Tablet PO PRN ×2 (09:44→22:47)
[2017-10-30] MEDS: Lisinopril 20 MG Tablet PO SCH (09:44)
[2017-10-30] MEDS: amLODIPine 5 MG Tablet PO SCH (09:44)
--- NOTE | 2017-10-30 15:11 | P.PN ---
Subjective Interval history: Follow-up visit for CVA, cardiomyopathy. Patient is seen and examined resting in bed comfortably in no acute distress. She denies any fevers, chills, nausea , vomiting, diarrhea, cough, shortness of breath or chest pain. Reports that she got several calls from her insurance company wanting more information regarding her stay and possible home health, she redirected these calls to her telephonic nurse case manager. Physical Exam Vital signs: Vital Signs 10/29/17 16:00 10/29/17 20:00 10/30/17 00:00 Temperature 98 F 97.6 F 97.7 F Pulse Rate 69 73 Respiratory Rate 16 18 18 Blood Pressure 149/68 H 149/79 H 146/66 H Pulse Oximetry 95 98 99 10/30/17 01:30 10/30/17 04:00 Temperature 98.3 F Pulse Rate 65 Respiratory Rate 17 18 Blood Pressure 133/78 Pulse Oximetry 98 Intake & Output 10/29/17 10/30/17 10/30/17 18:59 06:59 18:59 Intake Total 1000 / 1000 Balance 1000 / 1000 Weight 105.4 kg Intake: IV 1000 / 1000 Other: Date of Last Bowel Movement 10/27/17 10/27/17 Narrative: GENERAL: Well-nourished obese -[place]ian female in no acute distress. SKIN: Warm and dry. HEAD: Atraumatic. Normocephalic. EYES: Pupils equal and round. ENT: No mucous membrane bleeding. Mucous membranes pink and moist. NECK: Trachea midline. CARDIOVASCULAR: Regular rate and rhythm. RESPIRATORY: Nonlabored. Clear to auscultation. Breath sounds equal bilaterally. GASTROINTESTINAL: Abdomen soft, non-tender, nondistended. Positive bowel sounds. MUSCULOSKELETAL: Extremities without clubbing, cyanosis, or edema. No obvious deformities. NEUROLOGICAL: Awake and alert. No obvious cranial nerve deficits. Motor grossly within normal limits, no weakness noted, no facial droop. Normal speech. PSYCHIATRIC: Appropriate mood and affect; insight and judgment normal. - Urinary Catheter Management Female External Cath placed during this visit: no Results - Labs CBC & Chem 7: 10/27/17 08:41 10/27/17 08:41 Laboratory Results - last 24 hr 10/30/17 04:24 PT 14.5 H INR 1.4 - Procedures LAURA 8-20 Moderately dilated left ventricle. Wall thickness is measured at the upper limits of normal. The left ventricular systolic function is severely reduced with an estimated ejection fraction in the range of 20-25%. There is diffuse global hypokinesis with distinct regional wall motion abnormalities. Small mobile left ventricular apical thrombus. Normal left atrial appendage size with no evidence of thrombus formation. Normal atrial septal thickness without atrial level shunting by limited color doppler interrogation. No atrial level shunt is demonstrated by color flow Doppler interrogation. No atrial level shunt is observed with agitated saline contrast administration. Mild thickening of the mitral valve leaflets. Mild mitral valve regurgitation. Mild mitral annular calcification. No mitral valve stenosis. Mild tricuspid valve stenosis. Assessment and Plan - Assessment (1) Weakness Code(s): R53.1 - Weakness Status: Acute (2) Gait instability Code(s): R26.81 - Unsteadiness on feet Status: Acute (3) Risk for falls Code(s): Z91.81 - History of falling Status: Acute (4) Acute CVA (cerebrovascular accident) Code(s): I63.9 - Cerebral infarction, unspecified Status: Acute - Plan 61-year-old female presents with left facial droop, confusion, mild dysarthria Acute CVA -2D echo results showed a EF of 20-25% with dilated left ventricle and dilated left atrial with moderate mitral regurgitation. Small mobile left ventricular apical thrombus also noted. -Check fasting lipid profile which showed LDL 46 and hemoglobin A1c 5.7, consult PT and ST. -Stress test completed on 10/26 showed severe LV chamber dilatation and LV dysfunction, no evidence of ischemia. -Neurology recommends lifelong Coumadin -Currently on therapeutic dose of Lovenox along with Coumadin for bridge over. -INR this morning 1.4, increase Coumadin dose to 7.5 mg, continue daily INRs. Hypertensive emergency -stable, continue Coreg, lisinopril, Norvasc. Nonischemic cardiomyopathy Cardiomyopathy of 20-25% with dilated left ventricle and atrial -Cardiology recommends continuing Coreg and lisinopril -Can discontinue aspirin as patient will now be transitioned to p.o. Coumadin -Cardiology also recommends LifeVest at discharge, this has been ordered, telephonic nurse case manager working on getting approval from insurance [email or web address]. Tobacco abuse-cessation reinforced DVT prophylaxisLovenox/Coumadin Discussed Condition With: Discussed with patient and nursing consultant Planning: Discharge once INR >1.9 and LifeVest has been obtained.
[2017-10-30] MEDS ORDERED: Warfarin Consult Pharmacy OTHER PRN (15:46)
[2017-10-30 16:29] LABS: Protein C Functional 83 % (70 - 150)
[2017-10-31 06:56] LABS: INR 1.7 Ratio; Prothrombin Time 16.8 sec (9.8-11.6)
[2017-10-31] MEDS: Methocarbamol 500 MG Tablet PO SCH ×3 (07:43→21:33)
[2017-10-31] MEDS: Insulin NovoLOG Aspart Correctional Sugar Inj SQ SCH ×4 (08:03→21:34)
[2017-10-31] MEDS: Carvedilol 12.5 MG Tablet PO SCH ×2 (08:32→21:33)
[2017-10-31] MEDS: Lisinopril 20 MG Tablet PO SCH (08:32)
[2017-10-31] MEDS: Lidocaine 5% Patch T-DERMAL SCH (08:32)
[2017-10-31] MEDS: amLODIPine 5 MG Tablet PO SCH (08:32)
[2017-10-31] MEDS: Enoxaparin Inj 100 MG/ML Syringe SQ SCH ×2 (08:32→21:34)
--- NOTE | 2017-10-31 09:45 | P.PN ---
Subjective Interval history: Follow-up visit for CVA, cardiomyopathy. Patient is seen and examined sitting up on side of bed in no acute distress. She is requesting to get regular sugar as she has been getting artificial sweeteners and she is not a diabetic. She denies any fevers, chills, N/V/D cough or SOB. Constipation reported to nurse. Physical Exam Vital signs: Vital Signs 10/30/17 20:00 10/31/17 00:00 10/31/17 06:00 Temperature 98 F 98.2 F 97.9 F Pulse Rate 68 63 62 Respiratory Rate 19 18 16 Blood Pressure 138/59 L 120/72 134/63 Pulse Oximetry 97 98 100 10/31/17 08:00 Temperature 97.6 F Pulse Rate 59 L Respiratory Rate 18 Blood Pressure 145/77 H Pulse Oximetry 98 Intake & Output 10/30/17 10/31/17 10/31/17 18:59 06:59 18:59 Intake Total 525 / 525 Balance 525 / 525 Weight 105.2 kg Intake: Oral 525 / 525 Other: # Voids 5 Date of Last Bowel Movement 10/30/17 # Bowel Movements 1 Narrative: GENERAL: Well-nourished obese -[place] female in no acute distress. SKIN: Warm and dry. HEAD: Atraumatic. Normocephalic. EYES: Pupils equal and round. ENT: No mucous membrane bleeding. Mucous membranes pink and moist. NECK: Trachea midline. CARDIOVASCULAR: Regular rate and rhythm. RESPIRATORY: Nonlabored. Clear to auscultation. Breath sounds equal bilaterally. GASTROINTESTINAL: Abdomen soft, non-tender, nondistended. Positive bowel sounds. MUSCULOSKELETAL: Extremities without clubbing, cyanosis, or edema. No obvious deformities. NEUROLOGICAL: Awake and alert. No obvious cranial nerve deficits. Motor grossly within normal limits, no weakness noted, no facial droop. Normal speech. PSYCHIATRIC: Appropriate mood and affect; insight and judgment normal. - Urinary Catheter Management Female External Cath placed during this visit: no Results - Labs CBC & Chem 7: 10/27/17 08:41 10/27/17 08:41 Laboratory Results - last 24 hr 10/22/17 10/31/17 20:18 05:27 PT 16.8 H INR 1.7 Protein C Activity 83 Protein S Activity 96 Anti-Cardiolipin IgG Ab <9.4 Anti-Cardiolipin IgM Ab <9.4 - Procedures LAURA 10-26 Moderately dilated left ventricle. Wall thickness is measured at the upper limits of normal. The left ventricular systolic function is severely reduced with an estimated ejection fraction in the range of 20-25%. There is diffuse global hypokinesis with distinct regional wall motion abnormalities. Small mobile left ventricular apical thrombus. Normal left atrial appendage size with no evidence of thrombus formation. Normal atrial septal thickness without atrial level shunting by limited color doppler interrogation. No atrial level shunt is demonstrated by color flow Doppler interrogation. No atrial level shunt is observed with agitated saline contrast administration. Mild thickening of the mitral valve leaflets. Mild mitral valve regurgitation. Mild mitral annular calcification. No mitral valve stenosis. Mild tricuspid valve stenosis. Assessment and Plan - Assessment (1) Weakness Code(s): R53.1 - Weakness Status: Acute (2) Gait instability Code(s): R26.81 - Unsteadiness on feet Status: Acute (3) Risk for falls Code(s): Z91.81 - History of falling Status: Acute (4) Acute CVA (cerebrovascular accident) Code(s): I63.9 - Cerebral infarction, unspecified Status: Acute - Plan 61-year-old female presents with left facial droop, confusion, mild dysarthria Acute CVA -2D echo results showed a EF of 20-25% with dilated left ventricle and dilated left atrial with moderate mitral regurgitation. Small mobile left ventricular apical thrombus also noted. -Check fasting lipid profile which showed LDL 46 and hemoglobin A1c 5.7, consult PT and ST. -Stress test completed on 10/26 showed severe LV chamber dilatation and LV dysfunction, no evidence of ischemia. -Neurology recommends lifelong Coumadin -Currently on therapeutic dose of Lovenox along with Coumadin for bridge over. -INR this morning 1.7, continue Coumadin 7.5 mg, continue daily INRs. Hypertensive emergency -stable, continue Coreg, lisinopril, Norvasc. Nonischemic cardiomyopathy Cardiomyopathy of 20-25% with dilated left ventricle and atrial -Cardiology recommends continuing Coreg and lisinopril -Can discontinue aspirin as patient will now be transitioned to p.o. Coumadin -Cardiology also recommends LifeVest at discharge, this has been ordered, case advocate working on getting approval from insurance [employer]. Constipation -PRN meds ordered Tobacco abuse-cessation reinforced DVT prophylaxisLovenox/Coumadin Discussed Condition With: Patient and slot shift manager Planning: Discharge once INR >1.9 and LifeVest has been obtained, CM working on this.
[2017-10-31] MEDS ORDERED: Bisacodyl 10 MG Supp RECTAL PRN (09:46)
[2017-10-31] MEDS: Senna/Docusate Sodium 8.6/50 MG Tablet PO SCH (21:34)
[2017-11-01] MEDS: Methocarbamol 500 MG Tablet PO SCH ×3 (05:18→21:04)
[2017-11-01] MEDS: oxyCODONE/Acetaminophen 10/325 Tablet PO PRN ×2 (05:19→22:30)
[2017-11-01 05:54] LABS: INR 1.8 Ratio
[2017-11-01] MEDS: Lidocaine 5% Patch T-DERMAL SCH (09:53)
[2017-11-01] MEDS: amLODIPine 5 MG Tablet PO SCH (09:54)
[2017-11-01] MEDS: Carvedilol 12.5 MG Tablet PO SCH ×2 (09:54→21:04)
[2017-11-01] MEDS: Enoxaparin Inj 100 MG/ML Syringe SQ SCH ×2 (09:54→21:05)
[2017-11-01] MEDS: Senna/Docusate Sodium 8.6/50 MG Tablet PO SCH ×2 (09:54→21:04)
[2017-11-01] MEDS: Lisinopril 20 MG Tablet PO SCH (09:54)
--- NOTE | 2017-11-01 10:52 | P.PN ---
Subjective Interval history: Follow-up visit for CVA, cardiomyopathy. Patient is seen and examined resting in bed, with no complaints. INR continues to increase, still awaiting approval for AICD prior to discharge. Physical Exam Vital signs: Vital Signs 10/31/17 11:38 10/31/17 12:00 10/31/17 16:00 Temperature 98.2 F 97.2 F L Pulse Rate 65 70 Respiratory Rate 18 19 19 Blood Pressure 131/62 132/93 H Pulse Oximetry 96 97 10/31/17 20:00 11/01/17 00:00 11/01/17 04:00 Temperature 98.3 F 98.0 F 98.2 F Pulse Rate 66 71 65 Respiratory Rate 16 16 16 Blood Pressure 116/66 121/60 135/63 Pulse Oximetry 97 100 97 11/01/17 08:00 Temperature 97.8 F Pulse Rate 65 Respiratory Rate 18 Blood Pressure 136/60 Pulse Oximetry 98 Intake & Output 10/31/17 11/01/17 11/01/17 18:59 06:59 18:59 Intake Total 1200 / 1200 Balance 1200 / 1200 Weight 105.2 kg Intake: Oral 1200 / 1200 Other: # Voids 8 5 Date of Last Bowel Movement 10/30/17 10/31/17 # Bowel Movements 1 2 Narrative: GENERAL: Well-nourished obese -[place] female in no acute distress. SKIN: Warm and dry. HEAD: Atraumatic. Normocephalic. EYES: Pupils equal and round. ENT: No mucous membrane bleeding. Mucous membranes pink and moist. NECK: Trachea midline. CARDIOVASCULAR: Regular rate and rhythm. RESPIRATORY: Nonlabored. Clear to auscultation. Breath sounds equal bilaterally. GASTROINTESTINAL: Abdomen soft, non-tender, nondistended. Positive bowel sounds. MUSCULOSKELETAL: Extremities without clubbing, cyanosis, or edema. No obvious deformities. NEUROLOGICAL: Awake and alert. No obvious cranial nerve deficits. Motor grossly within normal limits, no weakness noted, no facial droop. Normal speech. PSYCHIATRIC: Appropriate mood and affect; insight and judgment normal. - Urinary Catheter Management Female External Cath placed during this visit: no Results - Labs CBC & Chem 7: 10/27/17 08:41 10/27/17 08:41 Laboratory Results - last 24 hr 11/01/17 05:25 PT 18.0 H INR 1.8 - Procedures LAURA 8-20 Moderately dilated left ventricle. Wall thickness is measured at the upper limits of normal. The left ventricular systolic function is severely reduced with an estimated ejection fraction in the range of 20-25%. There is diffuse global hypokinesis with distinct regional wall motion abnormalities. Small mobile left ventricular apical thrombus. Normal left atrial appendage size with no evidence of thrombus formation. Normal atrial septal thickness without atrial level shunting by limited color doppler interrogation. No atrial level shunt is demonstrated by color flow Doppler interrogation. No atrial level shunt is observed with agitated saline contrast administration. Mild thickening of the mitral valve leaflets. Mild mitral valve regurgitation. Mild mitral annular calcification. No mitral valve stenosis. Mild tricuspid valve stenosis. Assessment and Plan - Assessment (1) Weakness Code(s): R53.1 - Weakness Status: Acute (2) Gait instability Code(s): R26.81 - Unsteadiness on feet Status: Acute (3) Risk for falls Code(s): Z91.81 - History of falling Status: Acute (4) Acute CVA (cerebrovascular accident) Code(s): I63.9 - Cerebral infarction, unspecified Status: Acute - Plan 61-year-old female presents with left facial droop, confusion, mild dysarthria Acute CVA -2D echo results showed a EF of 20-25% with dilated left ventricle and dilated left atrial with moderate mitral regurgitation. Small mobile left ventricular apical thrombus also noted. -Check fasting lipid profile which showed LDL 46 and hemoglobin A1c 5.7, consult PT and ST. -Stress test completed on 10/26 showed severe LV chamber dilatation and LV dysfunction, no evidence of ischemia. -Neurology recommends lifelong Coumadin -Currently on therapeutic dose of Lovenox along with Coumadin for bridge over. -INR this morning 1.8, continue Coumadin 7.5 mg, continue daily INRs. Hypertensive emergency -stable, continue Coreg, lisinopril, Norvasc. Nonischemic cardiomyopathy Cardiomyopathy of 20-25% with dilated left ventricle and atrial -Cardiology recommends continuing Coreg and lisinopril -Can discontinue aspirin as patient will now be transitioned to p.o. Coumadin -Cardiology also recommends LifeVest at discharge, this has been ordered, correctional case records supervisor working on getting approval from insurance company. Constipation -PRN meds ordered Tobacco abuse-cessation reinforced DVT prophylaxisLovenox/Coumadin Discussed Condition With: Patient and correctional case records supervisor. Discharge Planning: Discharge once INR >1.9 and LifeVest has been obtained, CM working on this.
[2017-11-01] MEDS: Acetaminophen 325 MG Tablet PO PRN (17:57)
[2017-11-02] MEDS: Methocarbamol 500 MG Tablet PO SCH ×3 (06:28→21:50)
[2017-11-02 07:42] LABS: INR 2.2 Ratio; Prothrombin Time 22.7 sec (9.8-11.6)
[2017-11-02] MEDS: Lisinopril 20 MG Tablet PO SCH (10:32)
[2017-11-02] MEDS: Senna/Docusate Sodium 8.6/50 MG Tablet PO SCH ×2 (10:32→21:49)
[2017-11-02] MEDS: amLODIPine 5 MG Tablet PO SCH (10:33)
[2017-11-02] MEDS: Lidocaine 5% Patch T-DERMAL SCH (10:33)
[2017-11-02] MEDS: Carvedilol 12.5 MG Tablet PO SCH ×2 (10:33→21:50)
--- NOTE | 2017-11-02 11:36 | P.PN ---
Subjective Interval history: Follow-up visit for CVA, cardiomyopathy. Sister from [place] at bedside. Patient seen and examined resting in bed comfortably in no acute distress. She denies any fevers, chills, nausea, vomiting, diarrhea, cough, shortness of breath or chest pain. Patient complains of right lower extremity sciatica, discussed stretching exercises. INR at goal, awaiting approval for AICD, case management working on this. Physical Exam Vital signs: Vital Signs 11/01/17 12:00 11/01/17 14:30 11/01/17 20:00 Temperature 98.1 F 98.6 F 97.6 F Pulse Rate 67 61 60 Respiratory Rate 18 20 16 Blood Pressure 140/65 115/62 135/64 Pulse Oximetry 96 95 99 11/02/17 00:00 11/02/17 03:53 11/02/17 04:00 Temperature 97.8 F 98.1 F Pulse Rate 57 L 60 Respiratory Rate 16 16 16 Blood Pressure 125/56 L 144/67 H Pulse Oximetry 98 99 11/02/17 08:00 Temperature 97.7 F Pulse Rate 62 Respiratory Rate 16 Blood Pressure 124/72 Pulse Oximetry 98 Intake & Output 11/01/17 11/02/17 11/02/17 18:59 06:59 18:59 Intake Total 720 / 720 Balance 720 / 720 Weight 105.2 kg Intake: Oral 720 / 720 Other: # Voids 3 4 Date of Last Bowel Movement 10/31/17 11/01/17 # Bowel Movements 1 Narrative: GENERAL: Well-nourished obese -[place] female in no acute distress. SKIN: Warm and dry. HEAD: Atraumatic. Normocephalic. EYES: Pupils equal and round. ENT: No mucous membrane bleeding. Mucous membranes pink and moist. NECK: Trachea midline. CARDIOVASCULAR: Regular rate and rhythm. RESPIRATORY: Nonlabored. Clear to auscultation. Breath sounds equal bilaterally. GASTROINTESTINAL: Abdomen soft, non-tender, nondistended. Positive bowel sounds. MUSCULOSKELETAL: Extremities without clubbing, cyanosis, or edema. No obvious deformities. NEUROLOGICAL: Awake and alert. No obvious cranial nerve deficits. Motor grossly within normal limits, no weakness noted, no facial droop. Normal speech. PSYCHIATRIC: Appropriate mood and affect; insight and judgment normal. - Urinary Catheter Management Female External Cath placed during this visit: no Results - Labs CBC & Chem 7: 08/21/18 08:41 10/27/17 08:41 Laboratory Results - last 24 hr 11/02/17 06:18 PT 22.7 H INR 2.2 - Procedures LAURA 10-26 Moderately dilated left ventricle. Wall thickness is measured at the upper limits of normal. The left ventricular systolic function is severely reduced with an estimated ejection fraction in the range of 20-25%. There is diffuse global hypokinesis with distinct regional wall motion abnormalities. Small mobile left ventricular apical thrombus. Normal left atrial appendage size with no evidence of thrombus formation. Normal atrial septal thickness without atrial level shunting by limited color doppler interrogation. No atrial level shunt is demonstrated by color flow Doppler interrogation. No atrial level shunt is observed with agitated saline contrast administration. Mild thickening of the mitral valve leaflets. Mild mitral valve regurgitation. Mild mitral annular calcification. No mitral valve stenosis. Mild tricuspid valve stenosis. Assessment and Plan - Assessment (1) Weakness Code(s): R53.1 - Weakness Status: Acute (2) Gait instability Code(s): R26.81 - Unsteadiness on feet Status: Acute (3) Risk for falls Code(s): Z91.81 - History of falling Status: Acute (4) Acute CVA (cerebrovascular accident) Code(s): I63.9 - Cerebral infarction, unspecified Status: Acute - Plan 61-year-old female presents with left facial droop, confusion, mild dysarthria Acute CVA -2D echo results showed a EF of 20-25% with dilated left ventricle and dilated left atrial with moderate mitral regurgitation. Small mobile left ventricular apical thrombus also noted. -Check fasting lipid profile which showed LDL 46 and hemoglobin A1c 5.7, consult PT and ST. -Stress test completed on 10/26 showed severe LV chamber dilatation and LV dysfunction, no evidence of ischemia. -Neurology recommends lifelong Coumadin -INR this morning 2.2, continue Coumadin 7.5 mg, continue daily INRs. -Discontinue Lovenox Hypertensive emergency -stable, continue Coreg, lisinopril, Norvasc. Nonischemic cardiomyopathy Cardiomyopathy of 20-25% with dilated left ventricle and atrial -Cardiology recommends continuing Coreg and lisinopril -Can discontinue aspirin as patient will now be transitioned to p.o. Coumadin -Cardiology also recommends LifeVest at discharge, this has been ordered, disability case manager working on getting approval from insurance company. Right-sided sciatica-discussed physical therapy and stretching exercises. Constipation -PRN meds ordered Tobacco abuse-cessation reinforced DVT prophylaxisCoumadin Discussed Condition With: Patient, sister at bedside, RN and disability case manager. Discharge Planning: Needs AICD prior to discharge.
[2017-11-02] MEDS: Enoxaparin Inj 100 MG/ML Syringe SQ SCH (19:17)
[2017-11-03 06:28] LABS: INR 2.7 Ratio; Prothrombin Time 26.9 sec (9.8-11.6)
[2017-11-03] MEDS: Methocarbamol 500 MG Tablet PO SCH ×3 (07:32→23:12)
[2017-11-03] MEDS: Lisinopril 20 MG Tablet PO SCH (08:17)
[2017-11-03] MEDS: Lidocaine 5% Patch T-DERMAL SCH (08:17)
[2017-11-03] MEDS: Senna/Docusate Sodium 8.6/50 MG Tablet PO SCH ×2 (08:17→21:02)
[2017-11-03] MEDS: Carvedilol 12.5 MG Tablet PO SCH ×2 (08:18→21:02)
[2017-11-03] MEDS: amLODIPine 5 MG Tablet PO SCH (08:18)
--- NOTE | 2017-11-03 09:47 | P.PN ---
Subjective Interval history: Patient is seen sitting on side of bed eating breakfast. Sister is also at bedside. She tells me that she has been struggling with pain control and she thinks this is affecting her blood pressure. Reports that she did get her pain medication this morning and it is helping. Denies any chest pain or shortness of breath. No dizziness or syncope. No nausea vomiting or diarrhea. Physical Exam Vital signs: Vital Signs 11/02/17 12:00 11/02/17 16:00 11/02/17 20:25 Temperature 97.2 F L 97.6 F 98.5 F Pulse Rate 56 L 57 L Respiratory Rate 16 16 20 Blood Pressure 121/58 L 120/56 L 137/63 Pulse Oximetry 99 97 97 11/03/17 00:00 11/03/17 04:00 11/03/17 08:00 Temperature 97.4 F L Pulse Rate 61 Respiratory Rate 20 18 18 Blood Pressure 133/63 Pulse Oximetry 99 Intake & Output 11/02/17 11/03/17 11/03/17 18:59 06:59 18:59 Intake Total 720 / 720 1500 / 1500 Balance 720 / 720 1500 / 1500 Weight 105.2 kg Intake: Oral 720 / 720 1500 / 1500 Other: # Voids 4 Date of Last Bowel Movement 11/02/17 11/01/17 # Bowel Movements 3 Narrative: GENERAL: Well-nourished, well-developed adult female in no obvious distress. SKIN: Warm and dry. HEAD: Atraumatic. Normocephalic. CARDIOVASCULAR: Regular rate and rhythm. RESPIRATORY: No accessory muscle use. Clear to auscultation. Breath sounds equal bilaterally. GASTROINTESTINAL: Abdomen soft, non-tender, non-distended. Positive bowel sounds. MUSCULOSKELETAL: Extremities without clubbing, cyanosis, or edema. No obvious deformities. NEUROLOGICAL: Awake and alert. No obvious cranial nerve deficits. Motor grossly within normal limits. Normal speech. PSYCHIATRIC: Appropriate mood and affect; insight and judgment good. - Urinary Catheter Management Female External Cath placed during this visit: no Results - Labs CBC & Chem 7: 10/27/17 08:41 10/27/17 08:41 Laboratory Results - last 24 hr 11/03/17 05:23 PT 26.9 H INR 2.7 - Procedures LAURA 8-20 Moderately dilated left ventricle. Wall thickness is measured at the upper limits of normal. The left ventricular systolic function is severely reduced with an estimated ejection fraction in the range of 20-25%. There is diffuse global hypokinesis with distinct regional wall motion abnormalities. Small mobile left ventricular apical thrombus. Normal left atrial appendage size with no evidence of thrombus formation. Normal atrial septal thickness without atrial level shunting by limited color doppler interrogation. No atrial level shunt is demonstrated by color flow Doppler interrogation. No atrial level shunt is observed with agitated saline contrast administration. Mild thickening of the mitral valve leaflets. Mild mitral valve regurgitation. Mild mitral annular calcification. No mitral valve stenosis. Mild tricuspid valve stenosis. Assessment and Plan - Assessment (1) Weakness Code(s): R53.1 - Weakness Status: Acute (2) Gait instability Code(s): R26.81 - Unsteadiness on feet Status: Acute (3) Risk for falls Code(s): Z91.81 - History of falling Status: Acute (4) Acute CVA (cerebrovascular accident) Code(s): I63.9 - Cerebral infarction, unspecified Status: Acute - Plan 61-year-old female presents with left facial droop, confusion, mild dysarthria Acute CVA -2D echo results showed a EF of 20-25% with dilated left ventricle and dilated left atrial with moderate mitral regurgitation. Small mobile left ventricular apical thrombus also noted. -consult PT and ST. -Stress test completed on 10/26 showed severe LV chamber dilatation and LV dysfunction, no evidence of ischemia. -Neurology recommends lifelong Coumadin -INR this morning therapeutic, continue Coumadin 7.5 mg, continue daily INRs. -Discontinue Lovenox Hypertensive emergency -stable, continue Coreg, lisinopril, Norvasc. Nonischemic cardiomyopathy Cardiomyopathy of 20-25% with dilated left ventricle and atrial -Cardiology recommends continuing Coreg and lisinopril -Can discontinue aspirin as patient will now be transitioned to p.o. Coumadin -Cardiology also recommends LifeVest at discharge, this has been ordered, telephonic nurse case manager working on getting approval from insurance company. Right-sided sciatica -physical therapy and stretching exercises. Constipation -PRN meds ordered Tobacco abuse-cessation reinforced DVT prophylaxisCoumadin Discussed Condition With: Patient, sister at bedside, RN and telephonic nurse case manager. Discharge Planning: Needs AICD prior to discharge.
--- NOTE | 2017-11-03 14:05 | P.DCO ---
- Physical Therapy Order: Evaluate and treat, Improve ambulation, Strength and gait training - Occupational Therapy Order: Evaluate and treat, Improve ADL, Gross motor coordination, Fine motor coordination - Home Health Nursing Order: Medical education, Signs/symptoms of disease process, Nursing assessment with vital signs - Certification I have seen patient Shobha Riley on 11/03/17. My clinical findings support the need for the requested home health care services because: Limited mobility due to disease progression, Deconditioned with increased weakness, Medication compliance is questionable, Limited ability to care for self, High risk of falls I certify that my clinical findings support that this patient is homebound because: Unsteady gait/balance, Unsafe to leave home unassisted, Unable to use public transportation
[2017-11-03] MEDS: oxyCODONE/Acetaminophen 10/325 Tablet PO PRN (21:01)
[2017-11-04] MEDS: oxyCODONE/Acetaminophen 10/325 Tablet PO PRN ×2 (03:37→22:40)
[2017-11-04 06:11] LABS: INR 2.8 Ratio
[2017-11-04] MEDS: Methocarbamol 500 MG Tablet PO SCH ×2 (07:54→19:36)
[2017-11-04] MEDS: amLODIPine 5 MG Tablet PO SCH (10:01)
[2017-11-04] MEDS: Carvedilol 12.5 MG Tablet PO SCH ×2 (10:01→22:40)
[2017-11-04] MEDS: Lisinopril 20 MG Tablet PO SCH (10:01)
[2017-11-04] MEDS: Senna/Docusate Sodium 8.6/50 MG Tablet PO SCH ×2 (10:01→22:40)
[2017-11-04] MEDS: Lidocaine 5% Patch T-DERMAL SCH (10:02)
--- NOTE | 2017-11-04 15:28 | P.PN ---
Subjective Interval history: Patient seen lying comfortably in bed. Sister is also at bedside. Patient reports no changes-no shortness of breath or chest pain. No nausea vomiting or diarrhea. Tells me she is somewhat reluctant to do physical therapy as she does feel tired. Physical Exam Vital signs: Vital Signs 11/03/17 16:00 11/03/17 20:00 11/04/17 00:00 Temperature 97.6 F 97.6 F 97.7 F Pulse Rate 63 71 58 L Respiratory Rate 16 18 18 Blood Pressure 124/60 139/82 114/62 Pulse Oximetry 97 98 96 11/04/17 04:00 11/04/17 08:00 Temperature 97.8 F 97.8 F Pulse Rate 57 L 61 Respiratory Rate 20 18 Blood Pressure 138/61 122/68 Pulse Oximetry 96 98 Intake & Output 11/03/17 11/04/17 11/04/17 18:59 06:59 18:59 Intake Total 720 / 720 600 / 600 Balance 720 / 720 600 / 600 Weight 105.2 kg Intake: Oral 720 / 720 600 / 600 Other: # Voids 4 2 Date of Last Bowel Movement 11/03/17 11/03/17 # Bowel Movements 3 Narrative: GENERAL: Well-nourished, well-developed adult female in no obvious distress. SKIN: Warm and dry. HEAD: Atraumatic. Normocephalic. CARDIOVASCULAR: Regular rate and rhythm. RESPIRATORY: No accessory muscle use. Clear to auscultation. Breath sounds equal bilaterally. GASTROINTESTINAL: Abdomen soft, non-tender, non-distended. Positive bowel sounds. MUSCULOSKELETAL: Extremities without clubbing, cyanosis, or edema. No obvious deformities. NEUROLOGICAL: Awake and alert. No obvious cranial nerve deficits. Motor grossly within normal limits. Normal speech. PSYCHIATRIC: Appropriate mood and affect; insight and judgment good. - Urinary Catheter Management Female External Cath placed during this visit: no Results - Labs CBC & Chem 7: 10/27/17 08:41 10/27/17 08:41 Laboratory Results - last 24 hr 11/04/17 05:34 PT 28.0 H INR 2.8 - Procedures LAURA 8-20 Moderately dilated left ventricle. Wall thickness is measured at the upper limits of normal. The left ventricular systolic function is severely reduced with an estimated ejection fraction in the range of 20-25%. There is diffuse global hypokinesis with distinct regional wall motion abnormalities. Small mobile left ventricular apical thrombus. Normal left atrial appendage size with no evidence of thrombus formation. Normal atrial septal thickness without atrial level shunting by limited color doppler interrogation. No atrial level shunt is demonstrated by color flow Doppler interrogation. No atrial level shunt is observed with agitated saline contrast administration. Mild thickening of the mitral valve leaflets. Mild mitral valve regurgitation. Mild mitral annular calcification. No mitral valve stenosis. Mild tricuspid valve stenosis. Assessment and Plan - Assessment (1) Impaired mobility and ADLs Code(s): Z74.09 - Other reduced mobility Status: Acute (2) Acute CVA (cerebrovascular accident) Code(s): I63.9 - Cerebral infarction, unspecified Status: Acute (3) Weakness Code(s): R53.1 - Weakness Status: Acute (4) Gait instability Code(s): R26.81 - Unsteadiness on feet Status: Acute (5) Risk for falls Code(s): Z91.81 - History of falling Status: Acute - Plan 61-year-old female presents with left facial droop, confusion, mild dysarthria Acute CVA -2D echo results showed a EF of 20-25% with dilated left ventricle and dilated left atrial with moderate mitral regurgitation. Small mobile left ventricular apical thrombus also noted. -consult PT and ST. -Stress test completed on 10/26 showed severe LV chamber dilatation and LV dysfunction, no evidence of ischemia. -Neurology recommends lifelong Coumadin -INR this morning therapeutic, continue Coumadin 7.5 mg, continue daily INRs. -Discontinue Lovenox Hypertensive emergency -stable, continue Coreg, lisinopril, Norvasc. Nonischemic cardiomyopathy Cardiomyopathy of 20-25% with dilated left ventricle and atrial -Cardiology recommends continuing Coreg and lisinopril -Can discontinue aspirin as patient will now be transitioned to p.o. Coumadin -Cardiology also recommends LifeVest at discharge, this has been ordered, child support case officer working on getting approval from insurance [employer]. -Possible AICD Right-sided sciatica -physical therapy and stretching exercises. Constipation -PRN meds ordered Tobacco abuse-cessation reinforced DVT prophylaxisCoumadin Discussed Condition With: Patient, sister at bedside, RN and child support case officer. Discharge Planning: Needs AICD prior to discharge.
[2017-11-05] MEDS: Methocarbamol 500 MG Tablet PO SCH ×2 (05:36→05:37)
[2017-11-05 06:17] LABS: Prothrombin Time 20.7 sec (9.8-11.6)
[2017-11-05] MEDS: amLODIPine 5 MG Tablet PO SCH (08:23)
[2017-11-05] MEDS: Lisinopril 20 MG Tablet PO SCH (08:23)
[2017-11-05] MEDS: Senna/Docusate Sodium 8.6/50 MG Tablet PO SCH ×2 (08:23→21:00)
[2017-11-05] MEDS: Lidocaine 5% Patch T-DERMAL SCH (08:24)
[2017-11-05] MEDS: Carvedilol 12.5 MG Tablet PO SCH ×2 (08:24→21:00)
--- NOTE | 2017-11-05 11:38 | P.PN ---
Subjective Interval history: Patient is seen lying in bed. Denies any new concerns or complaints. No chest pain or shortness of breath. No syncope or dizziness. No nausea vomiting or diarrhea. She is tolerating meals well. Physical Exam Vital signs: Vital Signs 11/04/17 12:00 11/04/17 16:00 11/04/17 20:00 Temperature 97.6 F 97.7 F 98.2 F Pulse Rate 67 60 61 Respiratory Rate 17 18 18 Blood Pressure 133/60 156/54 H 128/70 Pulse Oximetry 96 97 99 11/05/17 00:00 11/05/17 02:30 11/05/17 04:00 Temperature 97.9 F 97.6 F Pulse Rate 62 59 L Respiratory Rate 17 17 18 Blood Pressure 121/61 129/63 Pulse Oximetry 98 98 11/05/17 08:00 Temperature 97.8 F Pulse Rate 60 Respiratory Rate 18 Blood Pressure 128/67 Pulse Oximetry 98 Intake & Output 11/04/17 11/05/17 11/05/17 18:59 06:59 18:59 Intake Total 960 / 960 Balance 960 / 960 Intake: Oral 960 / 960 Other: # Voids 2 4 Date of Last Bowel Movement 11/03/17 11/03/17 11/04/17 Narrative: GENERAL: Well-nourished, well-developed adult female in no obvious distress. SKIN: Warm and dry. HEAD: Atraumatic. Normocephalic. CARDIOVASCULAR: Regular rate and rhythm. RESPIRATORY: No accessory muscle use. Clear to auscultation. Breath sounds equal bilaterally. GASTROINTESTINAL: Abdomen soft, non-tender, non-distended. Positive bowel sounds. MUSCULOSKELETAL: Extremities without clubbing, cyanosis, or edema. No obvious deformities. NEUROLOGICAL: Awake and alert. No obvious cranial nerve deficits. Motor grossly within normal limits. Normal speech. PSYCHIATRIC: Appropriate mood and affect; insight and judgment good. - Urinary Catheter Management Female External Cath placed during this visit: no Results - Labs CBC & Chem 7: 10/27/17 08:41 10/27/17 08:41 Laboratory Results - last 24 hr 11/05/17 05:30 PT 20.7 H INR 2.0 - Procedures LAURA 8-20 Moderately dilated left ventricle. Wall thickness is measured at the upper limits of normal. The left ventricular systolic function is severely reduced with an estimated ejection fraction in the range of 20-25%. There is diffuse global hypokinesis with distinct regional wall motion abnormalities. Small mobile left ventricular apical thrombus. Normal left atrial appendage size with no evidence of thrombus formation. Normal atrial septal thickness without atrial level shunting by limited color doppler interrogation. No atrial level shunt is demonstrated by color flow Doppler interrogation. No atrial level shunt is observed with agitated saline contrast administration. Mild thickening of the mitral valve leaflets. Mild mitral valve regurgitation. Mild mitral annular calcification. No mitral valve stenosis. Mild tricuspid valve stenosis. Assessment and Plan - Assessment (1) Impaired mobility and ADLs Code(s): Z74.09 - Other reduced mobility Status: Acute (2) Acute CVA (cerebrovascular accident) Code(s): I63.9 - Cerebral infarction, unspecified Status: Acute (3) Weakness Code(s): R53.1 - Weakness Status: Acute (4) Gait instability Code(s): R26.81 - Unsteadiness on feet Status: Acute (5) Risk for falls Code(s): Z91.81 - History of falling Status: Acute - Plan 61-year-old female presents with left facial droop, confusion, mild dysarthria Acute CVA -2D echo results showed a EF of 20-25% with dilated left ventricle and dilated left atrial with moderate mitral regurgitation. Small mobile left ventricular apical thrombus also noted. -consult PT and ST. -Stress test completed on 10/26 showed severe LV chamber dilatation and LV dysfunction, no evidence of ischemia. -Neurology recommends lifelong Coumadin -INR this morning therapeutic, continue Coumadin 7.5 mg, continue daily INRs. -Discontinue Lovenox Hypertensive emergency -stable, continue Coreg, lisinopril, Norvasc. Nonischemic cardiomyopathy Cardiomyopathy of 20-25% with dilated left ventricle and atrial -Cardiology recommends continuing Coreg and lisinopril -Can discontinue aspirin as patient will now be transitioned to p.o. Coumadin -Cardiology also recommends LifeVest at discharge, this has been ordered, block and case maker working on getting approval from insurance [employer]. -Possible AICD Right-sided sciatica -physical therapy and stretching exercises. Constipation -PRN meds ordered Tobacco abuse-cessation reinforced DVT prophylaxisCoumadin Discussed Condition With: Patient, sister at bedside, RN and block and case maker. Discharge Planning: Patient is waiting for LifeVest approval; otherwise ready for discharge once cleared.
[2017-11-06] MEDS: Senna/Docusate Sodium 8.6/50 MG Tablet PO SCH ×2 (08:20→21:28)
[2017-11-06] MEDS: amLODIPine 5 MG Tablet PO SCH (08:21)
[2017-11-06] MEDS: Lisinopril 20 MG Tablet PO SCH (08:22)
[2017-11-06] MEDS: Lidocaine 5% Patch T-DERMAL SCH (08:22)
[2017-11-06] MEDS: Carvedilol 12.5 MG Tablet PO SCH ×2 (08:22→21:27)
[2017-11-06 09:42] LABS: INR 1.5 Ratio; Prothrombin Time 15.1 sec (9.8-11.6)
[2017-11-06 11:28] LABS: Baso # (Auto) 0.1 th/mm3 (0.0-0.2); Baso % (Auto) 1.5 % (0.0-2.0); Eos # (Auto) 0.2 th/mm3 (0.0-0.4); Eos % (Auto) 3.2 % (0.0-4.0); Hematocrit 43.7 % (35.0-46.0); Hemoglobin 14.7 gm/dL (11.6-15.3); Lymph # (Auto) 2.4 th/mm3 (1.0-4.8); Lymph % (Auto) 32.2 % (9.0-44.0); Mean Corpuscular HGB Conc 33.7 % (32.0-36.0); Mean Corpuscular Hemoglobin 30.8 pg (27.0-34.0); Mean Corpuscular Volume 91.5 fL (80.0-100.0); Mean Platelet Volume 10.4 fL (7.0-11.0); Mono # (Auto) 0.8 th/mm3 (0.0-0.9); Mono % (Auto) 10.6 % (0.0-8.0); Neut # (Auto) 3.8 th/mm3 (1.8-7.7); Neut % (Auto) 52.5 % (16.0-70.0); Platelet Count 203 th/mm3 (150-450); Red Blood Count 4.78 mil/mm3 (4.00-5.30); Red Cell Distribution Width 13.4 % (11.6-17.2); White Blood Count 7.3 th/mm3 (4.0-11.0)
[2017-11-06] MEDS: Methocarbamol 500 MG Tablet PO SCH (11:42)
[2017-11-06 11:51] LABS: Albumin 4.1 g/dL (3.4-5.0); Anion Gap 8 meq/L (5-15); Aspartate Aminotransferase 22 U/L (15-37); Blood Urea Nitrogen 17 mg/dL (7-18); Calcium 9.2 mg/dL (8.5-10.1); Chloride 102 meq/L (98-107); Glomerular Filtration Rate Greater Than 89 mL/min (>89); Glucose,Random 79 mg/dL (74-106); Potassium 4.5 meq/L (3.5-5.1); Sodium 136 meq/L (136-145)
[2017-11-06 11:57] LABS: Alanine Aminotransferase 58 U/L (10-53); Alkaline Phosphatase 74 U/L (45-117); Total Protein 7.8 g/dL (6.4-8.2)
--- NOTE | 2017-11-06 18:17 | P.PN ---
Subjective Interval history: Patient is seen sitting up at bedside. Her sister is with her. She tells me that she is feeling well but she is sick of being here. Denies any chest pain or shortness of breath. No dizziness or syncope. Upon exam she is noted to have mild wheeze-she denies any history of asthma or COPD. She does tell me that sometimes in the morning she will wake up with a tight chest and wheezing and that she is always previously used Primatene to treat this. Physical Exam Vital signs: Vital Signs 11/05/17 20:00 11/05/17 22:00 11/06/17 00:00 Temperature 97.8 F 97.6 F Pulse Rate 62 56 L 56 L Respiratory Rate 17 16 Blood Pressure 134/63 118/55 L Pulse Oximetry 98 98 11/06/17 04:00 11/06/17 08:00 11/06/17 12:00 Temperature 97.8 F 98.0 F 97.8 F Pulse Rate 58 L 60 62 Respiratory Rate 16 18 18 Blood Pressure 125/59 L 109/66 151/69 H Pulse Oximetry 99 98 97 11/06/17 16:00 Temperature 98.0 F Pulse Rate 76 Respiratory Rate 18 Blood Pressure 146/70 H Pulse Oximetry 95 Intake & Output 11/05/17 11/06/17 11/06/17 18:59 06:59 18:59 Intake Total 360 / 360 480 / 480 Balance 360 / 360 480 / 480 Weight 105.1 kg Intake: Oral 360 / 360 480 / 480 Other: # Voids 5 3 Date of Last Bowel Movement 11/04/17 11/04/17 11/04/17 Narrative: GENERAL: Well-nourished, well-developed adult female in no obvious distress. SKIN: Warm and dry. HEAD: Atraumatic. Normocephalic. CARDIOVASCULAR: Regular rate and rhythm. RESPIRATORY: No accessory muscle use. Mild wheeze. Breath sounds equal bilaterally. GASTROINTESTINAL: Abdomen soft, non-tender, non-distended. Positive bowel sounds. MUSCULOSKELETAL: Extremities without clubbing, cyanosis, or edema. No obvious deformities. NEUROLOGICAL: Awake and alert. No obvious cranial nerve deficits. Motor grossly within normal limits. Normal speech. PSYCHIATRIC: Appropriate mood and affect; insight and judgment good. - Urinary Catheter Management Female External Cath placed during this visit: no Results - Labs CBC & Chem 7: 11/06/17 10:58 08/31/18 10:58 Laboratory Results - last 24 hr 11/06/17 11/06/17 11/06/17 08:38 10:58 10:58 WBC 7.3 RBC 4.78 Hgb 14.7 Hct 43.7 MCV 91.5 MCH 30.8 MCHC 33.7 RDW 13.4 Plt Count 203 MPV 10.4 Neut % (Auto) 52.5 Lymph % (Auto) 32.2 [place] % (Auto) 10.6 H Eos % (Auto) 3.2 Baso % (Auto) 1.5 Neut # (Auto) 3.8 Lymph # (Auto) 2.4 [place] # (Auto) 0.8 Eos # (Auto) 0.2 Baso # (Auto) 0.1 WBC Differential . Differential Comment Auto diff final PT 15.1 H INR 1.5 Sodium 136 Potassium 4.5 Chloride 102 Carbon Dioxide 26.0 Anion Gap 8 BUN 17 Creatinine 0.75 Estimated GFR Greater than 89 Random Glucose 79 Calcium 9.2 Total Bilirubin 0.3 AST 22 ALT 58 H Alkaline Phosphatase 74 Total Protein 7.8 Albumin 4.1 - Procedures LAURA 8-20 Moderately dilated left ventricle. Wall thickness is measured at the upper limits of normal. The left ventricular systolic function is severely reduced with an estimated ejection fraction in the range of 20-25%. There is diffuse global hypokinesis with distinct regional wall motion abnormalities. Small mobile left ventricular apical thrombus. Normal left atrial appendage size with no evidence of thrombus formation. Normal atrial septal thickness without atrial level shunting by limited color doppler interrogation. No atrial level shunt is demonstrated by color flow Doppler interrogation. No atrial level shunt is observed with agitated saline contrast administration. Mild thickening of the mitral valve leaflets. Mild mitral valve regurgitation. Mild mitral annular calcification. No mitral valve stenosis. Mild tricuspid valve stenosis. Assessment and Plan - Assessment (1) Impaired mobility and ADLs Code(s): Z74.09 - Other reduced mobility Status: Acute (2) Acute CVA (cerebrovascular accident) Code(s): I63.9 - Cerebral infarction, unspecified Status: Acute (3) Weakness Code(s): R53.1 - Weakness Status: Acute (4) Gait instability Code(s): R26.81 - Unsteadiness on feet Status: Acute (5) Risk for falls Code(s): Z91.81 - History of falling Status: Acute - Plan 61-year-old female presents with left facial droop, confusion, mild dysarthria Acute CVA -2D echo results showed a EF of 20-25% with dilated left ventricle and dilated left atrial with moderate mitral regurgitation. Small mobile left ventricular apical thrombus also noted. -consult PT and ST. -Stress test completed on 10/26 showed severe LV chamber dilatation and LV dysfunction, no evidence of ischemia. -Neurology recommends lifelong Coumadin -INR this morning therapeutic, continue Coumadin 7.5 mg, continue daily INRs. -Discontinue Lovenox Hypertensive emergency -stable, continue Coreg, lisinopril, Norvasc. Nonischemic cardiomyopathy Cardiomyopathy of 20-25% with dilated left ventricle and atrial -Cardiology recommends continuing Coreg and lisinopril -Can discontinue aspirin as patient will now be transitioned to p.o. Coumadin -Cardiology also recommends LifeVest at discharge, this has been ordered, outpatient case manager working on getting approval from insurance company. -Possible AICD Right-sided sciatica -physical therapy and stretching exercises. Constipation -PRN meds ordered Bronchospasm/wheezing -asthma -DuoNeb's as needed Tobacco abuse-cessation reinforced DVT prophylaxisCoumadin Discussed Condition With: Patient, sister at bedside, RN and outpatient case manager. Discharge Planning: Patient is waiting for LifeVest approval; otherwise ready for discharge once cleared.
[2017-11-06] MEDS: oxyCODONE/Acetaminophen 10/325 Tablet PO PRN (21:27)
[2017-11-07] MEDS: Senna/Docusate Sodium 8.6/50 MG Tablet PO SCH ×2 (09:10→20:59)
[2017-11-07] MEDS: amLODIPine 5 MG Tablet PO SCH (09:10)
[2017-11-07] MEDS: Lisinopril 20 MG Tablet PO SCH (09:10)
[2017-11-07] MEDS: Carvedilol 12.5 MG Tablet PO SCH ×2 (09:10→20:59)
[2017-11-07] MEDS: Lidocaine 5% Patch T-DERMAL SCH (09:12)
[2017-11-07] MEDS: oxyCODONE/Acetaminophen 10/325 Tablet PO PRN (14:41)
[2017-11-07 15:16] LABS: INR 1.5 Ratio; Prothrombin Time 15.5 sec (9.8-11.6)
--- NOTE | 2017-11-07 18:06 | P.PN ---
Subjective Interval history: Patient is seen sitting in room with her sister. Extensive time spent discussing her hospitalization and condition. All questions were answered to their satisfaction. Dr. Arteaga also came and spoke to patient. Patient tells me that she has been experiencing headaches each night that are primarily in her right forehead. She denies any dizziness or syncope. Denies vision changes. Reports the pain primarily as pressure and squeezing. She does not experience any numbness or weakness. No change in speech. Denies any chest pain or shortness of breath. No nausea vomiting or diarrhea. Physical Exam Vital signs: Vital Signs 11/06/17 20:00 11/07/17 00:00 11/07/17 04:00 Temperature 97.4 F L 97.5 F L 97.7 F Pulse Rate 81 71 58 L Respiratory Rate 18 18 16 Blood Pressure 141/66 H 135/74 137/79 Pulse Oximetry 99 98 98 11/07/17 07:45 11/07/17 08:00 11/07/17 12:00 Temperature 97.2 F L 98.4 F Pulse Rate 64 66 70 Respiratory Rate 16 16 Blood Pressure 146/75 H 108/68 Pulse Oximetry 98 98 11/07/17 16:00 Temperature 97.9 F Pulse Rate 58 L Respiratory Rate 16 Blood Pressure 123/57 L Pulse Oximetry 95 Intake & Output 11/06/17 11/07/17 11/07/17 18:59 06:59 18:59 Intake Total 480 / 480 960 / 960 Balance 480 / 480 960 / 960 Weight 105.4 kg Intake: Oral 480 / 480 960 / 960 Other: # Voids 3 4 Date of Last Bowel Movement 11/04/17 11/06/17 Narrative: GENERAL: Well-nourished, well-developed adult female in no obvious distress. SKIN: Warm and dry. HEAD: Atraumatic. Normocephalic. CARDIOVASCULAR: Regular rate and rhythm. RESPIRATORY: No accessory muscle use. Mild wheeze. Breath sounds equal bilaterally. GASTROINTESTINAL: Abdomen soft, non-tender, non-distended. Positive bowel sounds. MUSCULOSKELETAL: Extremities without clubbing, cyanosis, or edema. No obvious deformities. NEUROLOGICAL: Awake and alert. No obvious cranial nerve deficits. Motor grossly within normal limits. Normal speech. PSYCHIATRIC: Appropriate mood and affect; insight and judgment good. - Urinary Catheter Management Female External Cath placed during this visit: no Results - Labs CBC & Chem 7: 11/06/17 10:58 11/06/17 10:58 Laboratory Results - last 24 hr 11/07/17 14:45 PT 15.5 H INR 1.5 - Procedures LAURA 10-26 Moderately dilated left ventricle. Wall thickness is measured at the upper limits of normal. The left ventricular systolic function is severely reduced with an estimated ejection fraction in the range of 20-25%. There is diffuse global hypokinesis with distinct regional wall motion abnormalities. Small mobile left ventricular apical thrombus. Normal left atrial appendage size with no evidence of thrombus formation. Normal atrial septal thickness without atrial level shunting by limited color doppler interrogation. No atrial level shunt is demonstrated by color flow Doppler interrogation. No atrial level shunt is observed with agitated saline contrast administration. Mild thickening of the mitral valve leaflets. Mild mitral valve regurgitation. Mild mitral annular calcification. No mitral valve stenosis. Mild tricuspid valve stenosis. Assessment and Plan - Assessment (1) Impaired mobility and ADLs Code(s): Z74.09 - Other reduced mobility Status: Acute (2) Acute CVA (cerebrovascular accident) Code(s): I63.9 - Cerebral infarction, unspecified Status: Acute (3) Weakness Code(s): R53.1 - Weakness Status: Acute (4) Gait instability Code(s): R26.81 - Unsteadiness on feet Status: Acute (5) Risk for falls Code(s): Z91.81 - History of falling Status: Acute - Plan 61-year-old female presents with left facial droop, confusion, mild dysarthria Acute CVA -2D echo results showed a EF of 20-25% with dilated left ventricle and dilated left atrial with moderate mitral regurgitation. Small mobile left ventricular apical thrombus also noted. -consult PT and ST. -Stress test completed on 10/26 showed severe LV chamber dilatation and LV dysfunction, no evidence of ischemia. -Neurology recommends lifelong Coumadin -INR this morning therapeutic, continue Coumadin 7.5 mg, continue daily INRs. -Discontinue Lovenox -Repeat head CT ordered 11/07 due to patient complaint of headache. Hypertensive emergency -stable, continue Coreg, lisinopril, Norvasc. Nonischemic cardiomyopathy Cardiomyopathy of 20-25% with dilated left ventricle and atrial -Cardiology recommends continuing Coreg and lisinopril -Can discontinue aspirin as patient will now be transitioned to p.o. Coumadin -Cardiology also recommends LifeVest at discharge, this has been ordered, director case management working on getting approval from insurance company. -Possible AICD Right-sided sciatica -physical therapy and stretching exercises. Constipation -PRN meds ordered Bronchospasm/wheezing -asthma -DuoNeb's as needed -DC'd. Patient does not wish to have them. Tobacco abuse-cessation reinforced DVT prophylaxisCoumadin Discussed Condition With: Patient, sister at bedside, RN and director case management. Discharge Planning: Patient is waiting for LifeVest approval; otherwise ready for discharge once cleared.
--- NOTE | 2017-11-07 19:53 | CT ---
EXAM DATE: 11/07/2017 7:45 PM EDT AGE/SEX: 61 years / Female INDICATIONS: Weakness. CLINICAL DATA: This is the patient's initial encounter. Patient reports that signs and symptoms have been present for 1 day and indicates a pain score of 5/10. MEDICAL/SURGICAL HISTORY: Stroke. None. RADIATION DOSE: 48.40 CTDI (mGy) COMPARISON: [facility] [place], MR HEAD W/O CONTRAST, 10/22/2017. . TECHNIQUE: CT of the head without contrast. Using automated exposure control and adjustment of the mA and/or kV according to patient size, radiation dose was kept as low as reasonably achievable to ob tain optimal diagnostic quality images. DICOM format image data is available electronically for revi ew and comparison. FINDINGS: There is no significant change in area infarction in right frontoparietal junction. There is no hemor rhage or mass effect. There are no other changes. CONCLUSION: 1. No significant change in right frontal parietal junction infarction without hemorrhage or mass ef fect. . Electronically signed by: Sam Zhang MD 11/07/2017 7:52 PM EDT
[2017-11-08 05:51] LABS: INR 1.7 Ratio; Prothrombin Time 17.4 sec (9.8-11.6)
[2017-11-08] MEDS: Lisinopril 20 MG Tablet PO SCH (09:50)
[2017-11-08] MEDS: oxyCODONE/Acetaminophen 10/325 Tablet PO PRN ×2 (09:52→21:30)
[2017-11-08] MEDS: Carvedilol 12.5 MG Tablet PO SCH ×2 (09:53→21:32)
[2017-11-08] MEDS: Lidocaine 5% Patch T-DERMAL SCH (09:53)
[2017-11-08] MEDS: Senna/Docusate Sodium 8.6/50 MG Tablet PO SCH ×2 (09:53→21:29)
[2017-11-08] MEDS: amLODIPine 5 MG Tablet PO SCH (10:10)
[2017-11-08 10:34] LABS: Baso # (Auto) 0.1 th/mm3 (0.0-0.2); Baso % (Auto) 2.2 % (0.0-2.0); Eos # (Auto) 0.3 th/mm3 (0.0-0.4); Eos % (Auto) 4.6 % (0.0-4.0); Hematocrit 39.7 % (35.0-46.0); Hemoglobin 13.4 gm/dL (11.6-15.3); Lymph # (Auto) 2.5 th/mm3 (1.0-4.8); Lymph % (Auto) 38.4 % (9.0-44.0); Mean Corpuscular HGB Conc 33.8 % (32.0-36.0); Mean Corpuscular Hemoglobin 30.7 pg (27.0-34.0); Mean Platelet Volume 10.8 fL (7.0-11.0); Mono # (Auto) 0.6 th/mm3 (0.0-0.9); Mono % (Auto) 9.4 % (0.0-8.0); Neut % (Auto) 45.4 % (16.0-70.0); Platelet Count 178 th/mm3 (150-450); Red Blood Count 4.37 mil/mm3 (4.00-5.30); Red Cell Distribution Width 13.1 % (11.6-17.2); White Blood Count 6.5 th/mm3 (4.0-11.0)
[2017-11-08 11:00] LABS: Alkaline Phosphatase 64 U/L (45-117); Total Protein 6.8 g/dL (6.4-8.2)
[2017-11-08 11:12] LABS: Alanine Aminotransferase 42 U/L (10-53); Albumin 3.5 g/dL (3.4-5.0); Anion Gap 8 meq/L (5-15); Aspartate Aminotransferase 18 U/L (15-37); Blood Urea Nitrogen 19 mg/dL (7-18); Calcium 8.5 mg/dL (8.5-10.1); Carbon Dioxide 28.6 meq/L (21.0-32.0); Chloride 103 meq/L (98-107); Glomerular Filtration Rate 89 mL/min (>89); Glucose,Random 100 mg/dL (74-106); Potassium 4.7 meq/L (3.5-5.1); Sodium 140 meq/L (136-145)
--- NOTE | 2017-11-08 16:40 | P.PN ---
Subjective Interval history: Patient is seen sitting in room. Sister is at bedside. Patient tells me that she is doing well. Continues to have intermittent headaches but they are responsive to Percocet. No facial droop, numbness or weakness. No dizziness or syncope. No chest pain or shortness of breath. Physical Exam Vital signs: Vital Signs 11/07/17 17:00 11/07/17 20:00 11/08/17 00:00 Temperature 97.8 F 97.1 F L Pulse Rate 68 65 63 Respiratory Rate 16 18 Blood Pressure 107/64 117/59 L Pulse Oximetry 98 99 11/08/17 04:00 11/08/17 08:00 11/08/17 12:00 Temperature 97.7 F 99.0 F 98.1 F Pulse Rate 58 L 85 65 Respiratory Rate 18 18 16 Blood Pressure 132/64 121/63 117/54 L Pulse Oximetry 97 97 97 Intake & Output 11/07/17 11/08/17 11/08/17 18:59 06:59 18:59 Intake Total 1200 / 1200 Balance 1200 / 1200 Weight 106.9 kg Intake: Oral 1200 / 1200 Other: # Voids 6 Date of Last Bowel Movement 11/08/17 11/08/17 # Bowel Movements 1 Narrative: GENERAL: Well-nourished, well-developed adult female in no obvious distress. SKIN: Warm and dry. HEAD: Atraumatic. Normocephalic. CARDIOVASCULAR: Regular rate and rhythm. RESPIRATORY: No accessory muscle use. Mild wheeze. Breath sounds equal bilaterally. GASTROINTESTINAL: Abdomen soft, non-tender, non-distended. Positive bowel sounds. MUSCULOSKELETAL: Extremities without clubbing, cyanosis, or edema. No obvious deformities. NEUROLOGICAL: Awake and alert. No obvious cranial nerve deficits. Motor grossly within normal limits. Normal speech. PSYCHIATRIC: Appropriate mood and affect; insight and judgment good. - Urinary Catheter Management Female External Cath placed during this visit: no Results - Labs CBC & Chem 7: 11/08/17 09:40 11/08/17 09:40 Laboratory Results - last 24 hr 11/08/17 11/08/17 11/08/17 04:43 09:40 09:40 WBC 6.5 RBC 4.37 Hgb 13.4 Hct 39.7 MCV 91.0 MCH 30.7 MCHC 33.8 RDW 13.1 Plt Count 178 MPV 10.8 Neut % (Auto) 45.4 Lymph % (Auto) 38.4 [place] % (Auto) 9.4 H Eos % (Auto) 4.6 H Baso % (Auto) 2.2 H Neut # (Auto) 3.0 Lymph # (Auto) 2.5 [place] # (Auto) 0.6 Eos # (Auto) 0.3 Baso # (Auto) 0.1 WBC Differential . Differential Comment Auto diff final PT 17.4 H INR 1.7 Sodium 140 Potassium 4.7 Chloride 103 Carbon Dioxide 28.6 Anion Gap 8 BUN 19 H Creatinine 0.80 Estimated GFR 89 Random Glucose 100 Calcium 8.5 Total Bilirubin 0.2 AST 18 ALT 42 Alkaline Phosphatase 64 Total Protein 6.8 D Albumin 3.5 D - Imaging Impressions Head CT 11/07/17 00:00 CONCLUSION: 1. No significant change in right frontal parietal junction infarction without hemorrhage or mass effect. . - Procedures LAURA 8-20 Moderately dilated left ventricle. Wall thickness is measured at the upper limits of normal. The left ventricular systolic function is severely reduced with an estimated ejection fraction in the range of 20-25%. There is diffuse global hypokinesis with distinct regional wall motion abnormalities. Small mobile left ventricular apical thrombus. Normal left atrial appendage size with no evidence of thrombus formation. Normal atrial septal thickness without atrial level shunting by limited color doppler interrogation. No atrial level shunt is demonstrated by color flow Doppler interrogation. No atrial level shunt is observed with agitated saline contrast administration. Mild thickening of the mitral valve leaflets. Mild mitral valve regurgitation. Mild mitral annular calcification. No mitral valve stenosis. Mild tricuspid valve stenosis. Assessment and Plan - Assessment (1) Impaired mobility and ADLs Code(s): Z74.09 - Other reduced mobility Status: Acute (2) Acute CVA (cerebrovascular accident) Code(s): I63.9 - Cerebral infarction, unspecified Status: Acute (3) Weakness Code(s): R53.1 - Weakness Status: Acute (4) Gait instability Code(s): R26.81 - Unsteadiness on feet Status: Acute (5) Risk for falls Code(s): Z91.81 - History of falling Status: Acute - Plan 61-year-old female presents with left facial droop, confusion, mild dysarthria Acute CVA -2D echo results showed a EF of 20-25% with dilated left ventricle and dilated left atrial with moderate mitral regurgitation. Small mobile left ventricular apical thrombus also noted. -consult PT and ST. -Stress test completed on 10/26 showed severe LV chamber dilatation and LV dysfunction, no evidence of ischemia. -Neurology recommends lifelong Coumadin -INR goal 23, continue Coumadin, continue daily INRs, pharmacy consult for dosing. -Discontinue Lovenox -Repeat head CT ordered 11/07 due to patient complaint of headache -no acute changes seen. Hypertensive emergency -stable, continue Coreg, lisinopril, Norvasc. Nonischemic cardiomyopathy Cardiomyopathy of 20-25% with dilated left ventricle and atrial -Cardiology recommends continuing Coreg and lisinopril -Can discontinue aspirin as patient will now be transitioned to p.o. Coumadin -Cardiology also recommends LifeVest at discharge, this has been ordered, case management manager working on getting approval from insurance company. -Possible AICD Right-sided sciatica -physical therapy and stretching exercises. Constipation -PRN meds ordered Bronchospasm/wheezing -asthma -DuoNeb's as needed -DC'd. Patient does not wish to have them. Tobacco abuse-cessation reinforced DVT prophylaxisCoumadin Discussed Condition With: Patient, sister at bedside, RN and Dr. Arteaga. Discharge Planning: Patient is waiting for LifeVest approval; otherwise ready for discharge once cleared.
[2017-11-09 06:44] LABS: INR 2.1 Ratio; Prothrombin Time 21.6 sec (9.8-11.6)
[2017-11-09] MEDS: amLODIPine 5 MG Tablet PO SCH (08:15)
[2017-11-09] MEDS: Carvedilol 12.5 MG Tablet PO SCH ×2 (08:15→21:10)
[2017-11-09] MEDS: Lisinopril 20 MG Tablet PO SCH (08:15)
[2017-11-09] MEDS: Senna/Docusate Sodium 8.6/50 MG Tablet PO SCH ×2 (08:16→21:10)
[2017-11-09] MEDS: Lidocaine 5% Patch T-DERMAL SCH (08:16)
--- NOTE | 2017-11-09 17:23 | P.PN ---
Subjective Interval history: Patient is seen lying quietly in bed. She is eating popcorn and playing [employer]. Denies any chest pain, palpitations or shortness of breath. No dizziness or syncope. Headaches have been better. No nausea vomiting or diarrhea. Physical Exam Vital signs: Vital Signs 11/08/17 20:00 11/09/17 00:00 11/09/17 04:00 Temperature 97.2 F L 98.1 F 97.9 F Pulse Rate 70 64 58 L Respiratory Rate 18 18 18 Blood Pressure 146/64 H 118/60 116/58 L Pulse Oximetry 98 99 98 11/09/17 08:00 11/09/17 12:00 11/09/17 16:00 Temperature 97.5 F L 97.9 F 97.8 F Pulse Rate 66 80 63 Respiratory Rate 17 17 18 Blood Pressure 171/77 H 94/44 L 120/60 Pulse Oximetry 99 97 99 Intake & Output 11/08/17 11/09/17 11/09/17 18:59 06:59 18:59 Intake Total 320 / 320 Balance 320 / 320 Weight 108.6 kg Intake: Oral 320 / 320 Other: # Voids 2 Date of Last Bowel Movement 11/08/17 11/08/17 11/08/17 Narrative: GENERAL: Well-nourished, well-developed adult female in no obvious distress. SKIN: Warm and dry. HEAD: Atraumatic. Normocephalic. CARDIOVASCULAR: Regular rate and rhythm. RESPIRATORY: No accessory muscle use. No wheeze. Breath sounds equal bilaterally. GASTROINTESTINAL: Abdomen soft, non-tender, non-distended. Positive bowel sounds. MUSCULOSKELETAL: Extremities without clubbing, cyanosis, or edema. No obvious deformities. NEUROLOGICAL: Awake and alert. No obvious cranial nerve deficits. Motor grossly within normal limits. Normal speech. PSYCHIATRIC: Appropriate mood and affect; insight and judgment good. - Urinary Catheter Management Female External Cath placed during this visit: no Results - Labs CBC & Chem 7: 11/08/17 09:40 11/08/17 09:40 Laboratory Results - last 24 hr 11/09/17 05:03 PT 21.6 H INR 2.1 - Procedures LAURA 8-20 Moderately dilated left ventricle. Wall thickness is measured at the upper limits of normal. The left ventricular systolic function is severely reduced with an estimated ejection fraction in the range of 20-25%. There is diffuse global hypokinesis with distinct regional wall motion abnormalities. Small mobile left ventricular apical thrombus. Normal left atrial appendage size with no evidence of thrombus formation. Normal atrial septal thickness without atrial level shunting by limited color doppler interrogation. No atrial level shunt is demonstrated by color flow Doppler interrogation. No atrial level shunt is observed with agitated saline contrast administration. Mild thickening of the mitral valve leaflets. Mild mitral valve regurgitation. Mild mitral annular calcification. No mitral valve stenosis. Mild tricuspid valve stenosis. Assessment and Plan - Assessment (1) Impaired mobility and ADLs Code(s): Z74.09 - Other reduced mobility Status: Acute (2) Acute CVA (cerebrovascular accident) Code(s): I63.9 - Cerebral infarction, unspecified Status: Acute (3) Weakness Code(s): R53.1 - Weakness Status: Acute (4) Gait instability Code(s): R26.81 - Unsteadiness on feet Status: Acute (5) Risk for falls Code(s): Z91.81 - History of falling Status: Acute - Plan 61-year-old female presents with left facial droop, confusion, mild dysarthria Acute CVA -2D echo results showed a EF of 20-25% with dilated left ventricle and dilated left atrial with moderate mitral regurgitation. Small mobile left ventricular apical thrombus also noted. -consult PT and ST. -Stress test completed on 10/26 showed severe LV chamber dilatation and LV dysfunction, no evidence of ischemia. -Neurology recommends lifelong Coumadin -INR goal 23, continue Coumadin, continue daily INRs, pharmacy consult for dosing. -Discontinue Lovenox -Repeat head CT ordered 11/07 due to patient complaint of headache -no acute changes seen. Hypertensive emergency -stable, continue Coreg, lisinopril, Norvasc. Nonischemic cardiomyopathy Cardiomyopathy of 20-25% with dilated left ventricle and atrial -Cardiology recommends continuing Coreg and lisinopril -Can discontinue aspirin as patient will now be transitioned to p.o. Coumadin -Cardiology also recommends LifeVest at discharge, this has been ordered, high risk case manager working on getting approval from insurance [employer]. -Possible AICD Right-sided sciatica -physical therapy and stretching exercises. Constipation -PRN meds ordered Bronchospasm/wheezing -asthma -DuoNeb's as needed -DC'd. Patient does not wish to have them. Tobacco abuse-cessation reinforced DVT prophylaxisCoumadin Discussed Condition With: Patient, RN and Dr. Arteaga. Discharge Planning: Patient is waiting for LifeVest approval; otherwise ready for discharge once cleared.
[2017-11-10 07:18] LABS: INR 2.3 Ratio
[2017-11-10] MEDS: Senna/Docusate Sodium 8.6/50 MG Tablet PO SCH ×2 (08:01→22:29)
[2017-11-10] MEDS: Carvedilol 12.5 MG Tablet PO SCH ×2 (08:01→22:29)
[2017-11-10] MEDS: Lidocaine 5% Patch T-DERMAL SCH (08:01)
[2017-11-10] MEDS: Lisinopril 20 MG Tablet PO SCH (08:01)
[2017-11-10] MEDS: amLODIPine 5 MG Tablet PO SCH (08:01)
--- NOTE | 2017-11-10 12:27 | P.PNIM ---
Subjective Interval history: Follow-up for LifeVest and CVA Patient has no complaints. She stated that she is doing well. She denies any new focal neurological deficits, headaches, chest pain or shortness of breathing. She stated that she is doing well. Physical Exam Vital signs: Vital Signs 11/09/17 16:00 11/09/17 20:00 11/09/17 20:20 Temperature 97.8 F 97.4 F L Pulse Rate 63 67 61 Respiratory Rate 18 16 Blood Pressure 120/60 135/75 Pulse Oximetry 99 99 11/10/17 00:00 11/10/17 00:15 11/10/17 04:00 Temperature 97.8 F 99.5 F Pulse Rate 68 68 63 Respiratory Rate 20 16 Blood Pressure 136/63 144/68 H Pulse Oximetry 98 11/10/17 04:05 11/10/17 08:00 11/10/17 12:00 Temperature 97.7 F 97.5 F L Pulse Rate 66 66 68 Respiratory Rate 18 18 Blood Pressure 148/63 H 115/66 Pulse Oximetry 97 97 Intake & Output 11/09/17 11/10/17 11/10/17 18:59 06:59 18:59 Intake Total 1200 / 1200 Balance 1200 / 1200 Intake: Oral 1200 / 1200 Other: # Voids 3 4 Date of Last Bowel Movement 11/08/17 11/08/17 11/10/17 # Bowel Movements 1 - Constitutional no acute distress - Routine Cardiovascular Exam Present: RRR, S1, S2 Comments: No rubs murmurs or gallops. - Routine Abdominal Exam Present: soft, normoactive bowel sounds - Routine Extremities Exam Comments: Strength is grossly intact. - Routine Neurological Exam Present: oriented X3 - Urinary Catheter Management Female External Cath placed during this visit: no Results - Labs CBC & Chem 7: 11/08/17 09:40 11/08/17 09:40 Laboratory Results - last 24 hr 11/10/17 06:11 PT 23.0 H INR 2.3 - Procedures LAURA 8-20 Moderately dilated left ventricle. Wall thickness is measured at the upper limits of normal. The left ventricular systolic function is severely reduced with an estimated ejection fraction in the range of 20-25%. There is diffuse global hypokinesis with distinct regional wall motion abnormalities. Small mobile left ventricular apical thrombus. Normal left atrial appendage size with no evidence of thrombus formation. Normal atrial septal thickness without atrial level shunting by limited color doppler interrogation. No atrial level shunt is demonstrated by color flow Doppler interrogation. No atrial level shunt is observed with agitated saline contrast administration. Mild thickening of the mitral valve leaflets. Mild mitral valve regurgitation. Mild mitral annular calcification. No mitral valve stenosis. Mild tricuspid valve stenosis. Assessment and Plan - Assessment (1) Impaired mobility and ADLs Code(s): Z74.09 - Other reduced mobility Status: Acute (2) Acute CVA (cerebrovascular accident) Code(s): I63.9 - Cerebral infarction, unspecified Status: Acute (3) Weakness Code(s): R53.1 - Weakness Status: Acute (4) Gait instability Code(s): R26.81 - Unsteadiness on feet Status: Acute (5) Risk for falls Code(s): Z91.81 - History of falling Status: Acute - Plan 61-year-old female presents with left facial droop, confusion, mild dysarthria Acute CVA -2D echo results showed a EF of 20-25% with dilated left ventricle and dilated left atrial with moderate mitral regurgitation. Small mobile left ventricular apical thrombus also noted. -consult PT and ST. -Stress test completed on 10/26 showed severe LV chamber dilatation and LV dysfunction, no evidence of ischemia. -Neurology recommends lifelong Coumadin -INR goal 23, continue Coumadin, continue daily INRs, pharmacy consult for dosing. INR is 2.3. -Discontinue Lovenox -Repeat head CT ordered 11/07 due to patient complaint of headache -no acute changes seen. Hypertensive emergency -stable, continue Coreg, lisinopril, Norvasc. Nonischemic cardiomyopathy Cardiomyopathy of 20-25% with dilated left ventricle and atrial -Cardiology recommends continuing Coreg and lisinopril -Can discontinue aspirin as patient will now be transitioned to p.o. Coumadin -Cardiology also recommends LifeVest at discharge, this has been ordered, child support case officer working on getting approval from insurance company. -Possible AICD Right-sided sciatica -physical therapy and stretching exercises. Constipation -PRN meds ordered Bronchospasm/wheezing -asthma -DuoNeb's as needed -DC'd. Patient does not wish to have them. Tobacco abuse-cessation reinforced DVT prophylaxisCoumadin Discharge Planning: Patient is waiting for LifeVest approval; otherwise ready for discharge once cleared.
[2017-11-10] MEDS: oxyCODONE/Acetaminophen 10/325 Tablet PO PRN (22:29)
[2017-11-11 07:01] LABS: INR 2.5 Ratio; Prothrombin Time 25.4 sec (9.8-11.6)
[2017-11-11] MEDS: Senna/Docusate Sodium 8.6/50 MG Tablet PO SCH ×2 (09:15→22:20)
[2017-11-11] MEDS: Lisinopril 20 MG Tablet PO SCH (09:15)
[2017-11-11] MEDS: amLODIPine 5 MG Tablet PO SCH (09:15)
[2017-11-11] MEDS: Carvedilol 12.5 MG Tablet PO SCH ×2 (09:15→22:20)
[2017-11-11] MEDS: Lidocaine 5% Patch T-DERMAL SCH (09:16)
[2017-11-11] MEDS: oxyCODONE/Acetaminophen 10/325 Tablet PO PRN ×2 (09:16→22:20)
--- NOTE | 2017-11-11 14:54 | P.PNIM ---
Subjective Interval history: Follow-up for CVA and lifevest Patient has no complaints. Denies any chest pain, palpitation, light his dizziness. Patient stated that she has been walking in her room with no difficulties. I also discussed this with patient's nurse who stated that she has been walking in the room no problem. I stated to patient that she should be able to walk in the hallways so that she is not laying her bed all day. I also discussed this with patient's nurse. Physical Exam Vital signs: Vital Signs 11/10/17 16:00 11/10/17 20:00 11/11/17 00:00 Temperature 97.6 F 97.9 F 98.0 F Pulse Rate 72 66 63 Respiratory Rate 18 18 18 Blood Pressure 118/59 L 121/56 L 118/54 L Pulse Oximetry 97 99 97 11/11/17 00:30 11/11/17 04:00 11/11/17 08:00 Temperature 98.5 F 97.9 F Pulse Rate 60 67 Respiratory Rate 17 18 16 Blood Pressure 122/56 L 139/65 Pulse Oximetry 96 99 Intake & Output 11/10/17 11/11/17 11/11/17 18:59 06:59 18:59 Intake Total 1100 / 1100 Balance 1100 / 1100 Intake: Oral 1100 / 1100 Other: # Voids 4 5 Date of Last Bowel Movement 11/10/17 11/10/17 - Constitutional no acute distress - Routine Respiratory Exam Present: CTA bilaterally - Routine Cardiovascular Exam Present: RRR, S1, S2 - Routine Extremities Exam Comments: neg LE edema Strength and sensation grossly intact. - Routine Neurological Exam Present: alert, oriented X3 - Urinary Catheter Management Female External Cath placed during this visit: no Results - Labs CBC & Chem 7: 11/08/17 09:40 11/08/17 09:40 Laboratory Results - last 24 hr 11/11/17 05:24 PT 25.4 H INR 2.5 - Procedures LAURA 8-20 Moderately dilated left ventricle. Wall thickness is measured at the upper limits of normal. The left ventricular systolic function is severely reduced with an estimated ejection fraction in the range of 20-25%. There is diffuse global hypokinesis with distinct regional wall motion abnormalities. Small mobile left ventricular apical thrombus. Normal left atrial appendage size with no evidence of thrombus formation. Normal atrial septal thickness without atrial level shunting by limited color doppler interrogation. No atrial level shunt is demonstrated by color flow Doppler interrogation. No atrial level shunt is observed with agitated saline contrast administration. Mild thickening of the mitral valve leaflets. Mild mitral valve regurgitation. Mild mitral annular calcification. No mitral valve stenosis. Mild tricuspid valve stenosis. Assessment and Plan - Assessment (1) Impaired mobility and ADLs Code(s): Z74.09 - Other reduced mobility Status: Acute (2) Acute CVA (cerebrovascular accident) Code(s): I63.9 - Cerebral infarction, unspecified Status: Acute (3) Weakness Code(s): R53.1 - Weakness Status: Acute (4) Gait instability Code(s): R26.81 - Unsteadiness on feet Status: Acute (5) Risk for falls Code(s): Z91.81 - History of falling Status: Acute - Plan 61-year-old female presents with left facial droop, confusion, mild dysarthria Acute CVA -2D echo results showed a EF of 20-25% with dilated left ventricle and dilated left atrial with moderate mitral regurgitation. Small mobile left ventricular apical thrombus also noted. -consult PT and ST. -Stress test completed on 10/26 showed severe LV chamber dilatation and LV dysfunction, no evidence of ischemia. -Neurology recommends lifelong Coumadin -INR goal 23, continue Coumadin, continue daily INRs, pharmacy consult for dosing. INR is 2.5. -Discontinue Lovenox -Repeat head CT ordered 11/07 due to patient complaint of headache -no acute changes seen. Hypertensive emergency -stable, continue Coreg, lisinopril, Norvasc. Nonischemic cardiomyopathy Cardiomyopathy of 20-25% with dilated left ventricle and atrial -Cardiology recommends continuing Coreg and lisinopril -Can discontinue aspirin as patient will now be transitioned to p.o. Coumadin -Cardiology also recommends LifeVest at discharge, this has been ordered, caser up working on getting approval from insurance company. -Possible AICD Right-sided sciatica -physical therapy and stretching exercises. Constipation -PRN meds ordered Bronchospasm/wheezing -asthma -DuoNeb's as needed -DC'd. Patient does not wish to have them. Tobacco abuse-cessation reinforced DVT prophylaxisCoumadin Discharge Planning: Patient is waiting for LifeVest which she was not approved for. Per research compliance specialist needs LifeVest before discharge. This was discussed at [facility] meeting.
[2017-11-12 06:18] LABS: INR 2.6 Ratio; Prothrombin Time 26.7 sec (9.8-11.6)
[2017-11-12] MEDS: Senna/Docusate Sodium 8.6/50 MG Tablet PO SCH ×2 (08:48→20:29)
[2017-11-12] MEDS: Carvedilol 12.5 MG Tablet PO SCH ×2 (08:48→20:29)
[2017-11-12] MEDS: amLODIPine 5 MG Tablet PO SCH (08:48)
[2017-11-12] MEDS: Lisinopril 20 MG Tablet PO SCH (08:48)
[2017-11-12] MEDS: Lidocaine 5% Patch T-DERMAL SCH (08:49)
--- NOTE | 2017-11-12 14:13 | P.PNIM ---
Subjective Interval history: Follow up CVA. Patient is waiting on approval for a life vest. She denies any chest pain, sob, fever or chills. She does not want to sign the financial form because insurance is declining. Physical Exam Vital signs: Vital Signs 11/11/17 15:30 11/11/17 17:00 11/11/17 19:53 Temperature 97.5 F L Pulse Rate 68 78 64 Respiratory Rate 16 Blood Pressure 125/59 L Pulse Oximetry 100 11/11/17 20:00 11/12/17 00:00 11/12/17 02:30 Temperature 98.0 F 97.8 F Pulse Rate 64 64 Respiratory Rate 18 17 16 Blood Pressure 119/76 115/60 Pulse Oximetry 98 97 11/12/17 04:00 11/12/17 08:00 11/12/17 12:00 Temperature 97.7 F 97.8 F 97.8 F Pulse Rate 69 82 67 Respiratory Rate 17 20 16 Blood Pressure 125/61 98/56 L 96/71 L Pulse Oximetry 97 98 98 Intake & Output 11/11/17 11/12/17 11/12/17 18:59 06:59 18:59 Other: # Voids 3 Date of Last Bowel Movement 11/10/17 11/10/17 Narrative: GENERAL: This is a well-nourished, well-developed patient, in no apparent distress. CARDIOVASCULAR: Regular rate and rhythm without murmurs, gallops, or rubs. RESPIRATORY: Clear to auscultation. Breath sounds equal bilaterally. No wheezes , rales, or rhonchi. GASTROINTESTINAL: Abdomen soft, non-tender, nondistended. Normal active bowel sounds MUSCULOSKELETAL: Extremities without clubbing, cyanosis, or edema. NEURO: Alert & Oriented x4 to person, place, time, situation. Moves all ext x4 - Urinary Catheter Management Female External Cath placed during this visit: no Results - Labs CBC & Chem 7: 11/08/17 09:40 11/08/17 09:40 Laboratory Results - last 24 hr 11/12/17 05:26 PT 26.7 H INR 2.6 - Procedures LAURA 8-20 Moderately dilated left ventricle. Wall thickness is measured at the upper limits of normal. The left ventricular systolic function is severely reduced with an estimated ejection fraction in the range of 20-25%. There is diffuse global hypokinesis with distinct regional wall motion abnormalities. Small mobile left ventricular apical thrombus. Normal left atrial appendage size with no evidence of thrombus formation. Normal atrial septal thickness without atrial level shunting by limited color doppler interrogation. No atrial level shunt is demonstrated by color flow Doppler interrogation. No atrial level shunt is observed with agitated saline contrast administration. Mild thickening of the mitral valve leaflets. Mild mitral valve regurgitation. Mild mitral annular calcification. No mitral valve stenosis. Mild tricuspid valve stenosis. Assessment and Plan - Assessment (1) Impaired mobility and ADLs Code(s): Z74.09 - Other reduced mobility Status: Acute (2) Acute CVA (cerebrovascular accident) Code(s): I63.9 - Cerebral infarction, unspecified Status: Acute (3) Weakness Code(s): R53.1 - Weakness Status: Acute (4) Gait instability Code(s): R26.81 - Unsteadiness on feet Status: Acute (5) Risk for falls Code(s): Z91.81 - History of falling Status: Acute - Plan 61-year-old female presents with left facial droop, confusion, mild dysarthria Acute CVA -2D echo results showed a EF of 20-25% with dilated left ventricle and dilated left atrial with moderate mitral regurgitation. Small mobile left ventricular apical thrombus also noted. -Cont PT and ST. -Stress test completed on 10/26 showed severe LV chamber dilatation and LV dysfunction, no evidence of ischemia. -Neurology recommends lifelong Coumadin -INR goal 23, continue Coumadin, continue daily INRs, pharmacy consult for dosing. INR is 2.5. -Discontinue Lovenox -Repeat head CT ordered 11/07 due to patient complaint of headache -no acute changes seen. Hypertensive emergency -stable, continue Coreg, lisinopril, Norvasc. Nonischemic cardiomyopathy Cardiomyopathy of 20-25% with dilated left ventricle and atrial -Cardiology recommends continuing Coreg and lisinopril -Can discontinue aspirin as patient will now be transitioned to p.o. Coumadin -Cardiology also recommends LifeVest at discharge, this has been ordered, mattress spring encaser working on getting approval from insurance [employer]. -Possible AICD Right-sided sciatica -physical therapy and stretching exercises. Constipation -PRN meds ordered Tobacco abuse-cessation reinforced DVT prophylaxisCoumadin Discharge Planning: Once life vest is approved
[2017-11-12] MEDS: oxyCODONE/Acetaminophen 10/325 Tablet PO PRN (20:29)
[2017-11-13 05:27] LABS: INR 2.8 Ratio; Prothrombin Time 28.4 sec (9.8-11.6)
[2017-11-13] MEDS: amLODIPine 5 MG Tablet PO SCH (10:00)
[2017-11-13] MEDS: Lisinopril 20 MG Tablet PO SCH (10:00)
[2017-11-13] MEDS: Lidocaine 5% Patch T-DERMAL SCH (10:00)
[2017-11-13] MEDS: Carvedilol 12.5 MG Tablet PO SCH ×2 (10:00→21:05)
[2017-11-13] MEDS: Senna/Docusate Sodium 8.6/50 MG Tablet PO SCH ×2 (10:01→21:05)
--- NOTE | 2017-11-13 11:33 | P.PNIM ---
Subjective Interval history: Follow up CVA. Patient is waiting on approval for a life vest. She denies any chest pain, sob, fever or chills. She does not want to sign the financial form because insurance is declining. Patient is frustrated at this point because she feels she should be approved. Physical Exam Vital signs: Vital Signs 11/12/17 12:00 11/12/17 15:04 11/12/17 16:00 Temperature 97.8 F 98 F Pulse Rate 67 67 64 Respiratory Rate 16 20 Blood Pressure 96/71 L 126/67 Pulse Oximetry 98 95 11/12/17 20:00 11/13/17 00:00 11/13/17 04:00 Temperature 97.2 F L 97.8 F 97.6 F Pulse Rate 76 63 73 Respiratory Rate 20 18 20 Blood Pressure 113/88 124/59 L 105/73 Pulse Oximetry 98 96 99 11/13/17 08:00 Temperature 98.4 F Pulse Rate 71 Respiratory Rate 16 Blood Pressure 126/58 L Pulse Oximetry 96 Intake & Output 11/12/17 11/13/17 11/13/17 18:59 06:59 18:59 Intake Total 880 / 880 Balance 880 / 880 Weight 109.5 kg Intake: Oral 880 / 880 Other: # Voids 5 1 Date of Last Bowel Movement 11/10/17 # Bowel Movements 0 Narrative: GENERAL: This is a well-nourished, well-developed patient, in no apparent distress. CARDIOVASCULAR: Regular rate and rhythm without murmurs, gallops, or rubs. RESPIRATORY: Clear to auscultation. Breath sounds equal bilaterally. No wheezes , rales, or rhonchi. GASTROINTESTINAL: Abdomen soft, non-tender, nondistended. Normal active bowel sounds MUSCULOSKELETAL: Extremities without clubbing, cyanosis, or edema. NEURO: Alert & Oriented x4 to person, place, time, situation. Moves all ext x4 - Urinary Catheter Management Female External Cath placed during this visit: no Results - Labs CBC & Chem 7: 11/08/17 09:40 11/08/17 09:40 Laboratory Results - last 24 hr 11/13/17 04:51 PT 28.4 H INR 2.8 - Procedures LAURA 8-20 Moderately dilated left ventricle. Wall thickness is measured at the upper limits of normal. The left ventricular systolic function is severely reduced with an estimated ejection fraction in the range of 20-25%. There is diffuse global hypokinesis with distinct regional wall motion abnormalities. Small mobile left ventricular apical thrombus. Normal left atrial appendage size with no evidence of thrombus formation. Normal atrial septal thickness without atrial level shunting by limited color doppler interrogation. No atrial level shunt is demonstrated by color flow Doppler interrogation. No atrial level shunt is observed with agitated saline contrast administration. Mild thickening of the mitral valve leaflets. Mild mitral valve regurgitation. Mild mitral annular calcification. No mitral valve stenosis. Mild tricuspid valve stenosis. Assessment and Plan - Assessment (1) Impaired mobility and ADLs Code(s): Z74.09 - Other reduced mobility Status: Acute (2) Acute CVA (cerebrovascular accident) Code(s): I63.9 - Cerebral infarction, unspecified Status: Acute (3) Weakness Code(s): R53.1 - Weakness Status: Acute (4) Gait instability Code(s): R26.81 - Unsteadiness on feet Status: Acute (5) Risk for falls Code(s): Z91.81 - History of falling Status: Acute - Plan 61-year-old female presents with left facial droop, confusion, mild dysarthria Acute CVA -2D echo results showed a EF of 20-25% with dilated left ventricle and dilated left atrial with moderate mitral regurgitation. Small mobile left ventricular apical thrombus also noted. -Cont PT and ST. -Stress test completed on 10/26 showed severe LV chamber dilatation and LV dysfunction, no evidence of ischemia. -Neurology recommends lifelong Coumadin -INR goal 23, continue Coumadin, continue daily INRs, pharmacy consult for dosing. INR is 2.5. -Discontinue Lovenox -Repeat head CT ordered 11/07 due to patient complaint of headache -no acute changes seen. Hypertensive emergency -stable, continue Coreg, lisinopril, Norvasc. Nonischemic cardiomyopathy Cardiomyopathy of 20-25% with dilated left ventricle and atrial -Cardiology recommends continuing Coreg and lisinopril -Can discontinue aspirin as patient will now be transitioned to p.o. Coumadin -Cardiology also recommends LifeVest at discharge, this has been ordered, case folder working on getting approval from insurance [employer]. -Possible AICD Right-sided sciatica -physical therapy and stretching exercises. Constipation -PRN meds ordered Tobacco abuse-cessation reinforced DVT prophylaxisCoumadin Discharge Planning: Once life vest is approved
[2017-11-13] MEDS: oxyCODONE/Acetaminophen 10/325 Tablet PO PRN (13:05)
[2017-11-14] MEDS: Lidocaine 5% Patch T-DERMAL SCH (09:00)
[2017-11-14 09:11] LABS: INR 2.5 Ratio; Prothrombin Time 25.5 sec (9.8-11.6)
[2017-11-14] MEDS: Senna/Docusate Sodium 8.6/50 MG Tablet PO SCH ×2 (09:50→21:30)
[2017-11-14] MEDS: amLODIPine 5 MG Tablet PO SCH (09:50)
[2017-11-14] MEDS: Carvedilol 12.5 MG Tablet PO SCH ×2 (09:50→21:33)
[2017-11-14] MEDS: Lisinopril 20 MG Tablet PO SCH (09:50)
--- NOTE | 2017-11-14 10:18 | P.PNIM ---
Subjective Interval history: 9-7 Follow up CVA. Patient is waiting on approval for a life vest. She denies any chest pain, sob, fever or chills. She does not want to sign the financial form because insurance is declining. Patient is frustrated at this point because she feels she should be approved. 9-8 DISCUSSED WITH PATIENT AND RN NEEDS LIFEVEST DUE TO LOVE EF COULD RECHECK ECHO TO SEE IF IMPROVED DW RN AND PT Physical Exam Vital signs: Vital Signs 11/13/17 12:00 11/13/17 16:00 11/13/17 19:59 Temperature 97.4 F L 98.4 F Pulse Rate 74 67 65 Respiratory Rate 12 14 Blood Pressure 125/73 128/84 Pulse Oximetry 98 98 11/13/17 20:00 11/14/17 00:00 11/14/17 00:03 Temperature 97.8 F 98.1 F Pulse Rate 62 75 65 Respiratory Rate 18 18 Blood Pressure 136/74 132/72 Pulse Oximetry 94 L 98 11/14/17 04:00 11/14/17 04:02 11/14/17 08:00 Temperature 97.7 F 98.2 F Pulse Rate 70 66 71 Respiratory Rate 18 16 Blood Pressure 130/60 127/68 Pulse Oximetry 98 100 Intake & Output 11/13/17 11/14/17 11/14/17 18:59 06:59 18:59 Intake Total 400 / 400 Balance 400 / 400 Intake: Oral 400 / 400 Other: # Voids 1 Date of Last Bowel Movement 11/13/17 Narrative: GENERAL: This is a well-nourished, well-developed patient, in no apparent distress. Head is normocephalic atraumatic PERRLA EOMI tongue is midline oral mucosa is moist Neck is supple no JVD CARDIOVASCULAR: Regular rate and rhythm without murmurs, gallops, or rubs. S1, S2 NO S3 OR S4 RESPIRATORY: Clear to auscultation. Breath sounds equal bilaterally. No wheezes , rales, or rhonchi. GASTROINTESTINAL: Abdomen soft, non-tender, nondistended. Normal active bowel sounds MUSCULOSKELETAL: Extremities without clubbing, cyanosis, or edema. NEURO: Alert & Oriented x4 to person, place, time, situation. Moves all ext x4 Insight and judgment is good; mood and behavior is appropriate - Urinary Catheter Management Female External Cath placed during this visit: no Results - Labs CBC & Chem 7: 11/08/17 09:40 11/08/17 09:40 Laboratory Results - last 24 hr 11/14/17 08:09 PT 25.5 H INR 2.5 - Procedures LAURA 10-26 Moderately dilated left ventricle. Wall thickness is measured at the upper limits of normal. The left ventricular systolic function is severely reduced with an estimated ejection fraction in the range of 20-25%. There is diffuse global hypokinesis with distinct regional wall motion abnormalities. Small mobile left ventricular apical thrombus. Normal left atrial appendage size with no evidence of thrombus formation. Normal atrial septal thickness without atrial level shunting by limited color doppler interrogation. No atrial level shunt is demonstrated by color flow Doppler interrogation. No atrial level shunt is observed with agitated saline contrast administration. Mild thickening of the mitral valve leaflets. Mild mitral valve regurgitation. Mild mitral annular calcification. No mitral valve stenosis. Mild tricuspid valve stenosis. Assessment and Plan - Assessment (1) Impaired mobility and ADLs Code(s): Z74.09 - Other reduced mobility Status: Acute (2) Acute CVA (cerebrovascular accident) Code(s): I63.9 - Cerebral infarction, unspecified Status: Acute (3) Weakness Code(s): R53.1 - Weakness Status: Acute (4) Gait instability Code(s): R26.81 - Unsteadiness on feet Status: Acute (5) Risk for falls Code(s): Z91.81 - History of falling Status: Acute - Plan 61-year-old female presents with left facial droop, confusion, mild dysarthria Acute CVA -2D echo results showed a EF of 20-25% with dilated left ventricle and dilated left atrial with moderate mitral regurgitation. Small mobile left ventricular apical thrombus also noted. -Cont PT and ST. -Stress test completed on 10/26 showed severe LV chamber dilatation and LV dysfunction, no evidence of ischemia. -Neurology recommends lifelong Coumadin -INR goal 23, continue Coumadin, continue daily INRs, pharmacy consult for dosing. INR is 2.5. -Discontinue Lovenox -Repeat head CT ordered 11/07 due to patient complaint of headache -no acute changes seen. We will do a repeat echo to see if there is been any improvement in the cardiomyopathy Hypertensive emergency -stable, continue Coreg, lisinopril, Norvasc. Nonischemic cardiomyopathy Cardiomyopathy of 20-25% with dilated left ventricle and atrial -Cardiology recommends continuing Coreg and lisinopril -Can discontinue aspirin as patient will now be transitioned to p.o. Coumadin -Cardiology also recommends LifeVest at discharge, this has been ordered, family service caseworker working on getting approval from insurance company. -Possible AICD We will do a repeat echo to see if there is been any improvement in the cardiomyopathy Right-sided sciatica -physical therapy and stretching exercises. Constipation -PRN meds ordered Tobacco abuse-cessation reinforced DVT prophylaxisCoumadin Discharge Planning: Once life vest is approved We will do a repeat echo to see if there is been any change in the cardiomyopathy Code Status: Full code Discussed Condition With: RN and patient Discharge Planning: Discharge when cleared by all AND INR BETWEEN 2.0 AND 3.0 We will recheck an echo to see if her EF has improved and maybe does not need a LifeVest anymore
[2017-11-14] MEDS: oxyCODONE/Acetaminophen 10/325 Tablet PO PRN (13:40)
[2017-11-15 08:29] LABS: INR 2.7 Ratio; Prothrombin Time 26.8 sec (9.8-11.6)
[2017-11-15] MEDS: amLODIPine 5 MG Tablet PO SCH (08:52)
[2017-11-15] MEDS: Lidocaine 5% Patch T-DERMAL SCH (08:52)
[2017-11-15] MEDS: Senna/Docusate Sodium 8.6/50 MG Tablet PO SCH ×2 (08:52→21:46)
[2017-11-15] MEDS: Lisinopril 20 MG Tablet PO SCH (08:52)
[2017-11-15] MEDS: Carvedilol 12.5 MG Tablet PO SCH ×2 (08:52→21:46)
--- NOTE | 2017-11-15 12:00 | P.PNIM ---
Subjective Interval history: 9-7 Follow up CVA. Patient is waiting on approval for a life vest. She denies any chest pain, sob, fever or chills. She does not want to sign the financial form because insurance is declining. Patient is frustrated at this point because she feels she should be approved. 9-8 DISCUSSED WITH PATIENT AND RN NEEDS LIFEVEST DUE TO LOVE EF COULD RECHECK ECHO TO SEE IF IMPROVED DW RN AND PT 9-9 LATE ENTRY PATIENT SEEN AT 9:30 AM WILL ORDER REPEAT ECHO DW RN AND PT CONTINUE COUMADIN Physical Exam Vital signs: Vital Signs 11/14/17 12:00 11/14/17 13:00 11/14/17 16:00 Temperature 98.7 F 98.9 F Pulse Rate 60 70 66 Respiratory Rate 16 18 Blood Pressure 136/80 132/70 Pulse Oximetry 98 99 11/14/17 17:00 11/14/17 20:00 11/14/17 21:00 Temperature 98.3 F Pulse Rate 59 L 62 60 Respiratory Rate Blood Pressure 129/59 L Pulse Oximetry 94 L 11/15/17 00:00 11/15/17 01:00 11/15/17 04:00 Temperature 98.2 F 97.8 F Pulse Rate 60 64 59 L Respiratory Rate 18 18 Blood Pressure 119/63 130/60 Pulse Oximetry 98 97 11/15/17 05:00 11/15/17 08:00 Temperature 98.2 F Pulse Rate 62 74 Respiratory Rate 16 Blood Pressure 125/72 Pulse Oximetry 98 Intake & Output 11/14/17 11/15/17 11/15/17 18:59 06:59 18:59 Intake Total 700 / 700 Balance 700 / 700 Intake: Oral 700 / 700 Other: # Voids 4 Date of Last Bowel Movement 11/14/17 # Bowel Movements 1 Narrative: GENERAL: This is a well-nourished, well-developed patient, in no apparent distress. Head is normocephalic atraumatic PERRLA EOMI tongue is midline oral mucosa is moist Neck is supple no JVD CARDIOVASCULAR: Regular rate and rhythm without murmurs, gallops, or rubs. S1, S2 NO S3 OR S4 RESPIRATORY: Clear to auscultation. Breath sounds equal bilaterally. No wheezes , rales, or rhonchi. GASTROINTESTINAL: Abdomen soft, non-tender, nondistended. Normal active bowel sounds MUSCULOSKELETAL: Extremities without clubbing, cyanosis, or edema. NEURO: Alert & Oriented x4 to person, place, time, situation. Moves all ext x4 Insight and judgment is good; mood and behavior is appropriate - Urinary Catheter Management Female External Cath placed during this visit: no Results - Labs CBC & Chem 7: 11/08/17 09:40 11/08/17 09:40 Laboratory Results - last 24 hr 11/15/17 08:07 PT 26.8 H INR 2.7 - Procedures LAURA 10-26 Moderately dilated left ventricle. Wall thickness is measured at the upper limits of normal. The left ventricular systolic function is severely reduced with an estimated ejection fraction in the range of 20-25%. There is diffuse global hypokinesis with distinct regional wall motion abnormalities. Small mobile left ventricular apical thrombus. Normal left atrial appendage size with no evidence of thrombus formation. Normal atrial septal thickness without atrial level shunting by limited color doppler interrogation. No atrial level shunt is demonstrated by color flow Doppler interrogation. No atrial level shunt is observed with agitated saline contrast administration. Mild thickening of the mitral valve leaflets. Mild mitral valve regurgitation. Mild mitral annular calcification. No mitral valve stenosis. Mild tricuspid valve stenosis. Assessment and Plan - Assessment (1) Impaired mobility and ADLs Code(s): Z74.09 - Other reduced mobility Status: Acute (2) Acute CVA (cerebrovascular accident) Code(s): I63.9 - Cerebral infarction, unspecified Status: Acute (3) Weakness Code(s): R53.1 - Weakness Status: Acute (4) Gait instability Code(s): R26.81 - Unsteadiness on feet Status: Acute (5) Risk for falls Code(s): Z91.81 - History of falling Status: Acute - Plan 61-year-old female presents with left facial droop, confusion, mild dysarthria Acute CVA -2D echo results showed a EF of 20-25% with dilated left ventricle and dilated left atrial with moderate mitral regurgitation. Small mobile left ventricular apical thrombus also noted. -Cont PT and ST. -Stress test completed on 10/26 showed severe LV chamber dilatation and LV dysfunction, no evidence of ischemia. -Neurology recommends lifelong Coumadin -INR goal 23, continue Coumadin, continue daily INRs, pharmacy consult for dosing. INR is 2.5. -Discontinue Lovenox -Repeat head CT ordered 11/07 due to patient complaint of headache -no acute changes seen. We will do a repeat echo to see if there is been any improvement in the cardiomyopathy Hypertensive emergency -stable, continue Coreg, lisinopril, Norvasc. Nonischemic cardiomyopathy Cardiomyopathy of 20-25% with dilated left ventricle and atrial -Cardiology recommends continuing Coreg and lisinopril -Can discontinue aspirin as patient will now be transitioned to p.o. Coumadin -Cardiology also recommends LifeVest at discharge, this has been ordered, upper caser working on getting approval from insurance Commissioner. -Possible AICD We will do a repeat echo to see if there is been any improvement in the cardiomyopathy Right-sided sciatica -physical therapy and stretching exercises. Constipation -PRN meds ordered Tobacco abuse-cessation reinforced DVT prophylaxisCoumadin Discharge Planning: Once life vest is approved We will do a repeat echo to see if there is been any change in the cardiomyopathy Code Status: FULL CODE Discussed Condition With: RN AND PT Discharge Planning: Discharge when cleared by all AND INR BETWEEN 2.0 AND 3.0 We will recheck an echo to see if her EF has improved and maybe does not need a LifeVest anymore
--- NOTE | 2017-11-15 13:22 | ECHRPT ---
Indication: HHD CONCLUSIONS The left ventricular systolic function is severely reduced with an estimated ejection fraction in th e range of 25-30%. Normal left ventricular size. Wall thickness is measured at the upper limits of normal. There was limited left ventricular wall motion assessment due to poor endocardial visualization. The left atrial size is mildly dilated. Mitral annular calcification is present. BP: / HR: Rhythm: Sinus MEASUREMENTS (Male / Female) Normal Values Technical Quality:Excellent 2D ECHO LV Diastolic Diameter PLAX 5.1 cm 4.2 - 5.9 / 3.9 - 5.3 cm LV Systolic Diameter PLAX 4.6 cm IVS Diastolic Thickness 1.2 cm 0.6 - 1.0 / 0.6 - 0.9 cm LVPW Diastolic Thickness 1.2 cm 0.6 - 1.0 / 0.6 - 0.9 cm LV Relative Wall Thickness 0.5 LA Systolic Diameter LX 3.9 cm 3.0 - 4.0 / 2.7 - 3.8 cm LV Ejection Fraction MOD BP 28.3 % >= 55 % LV Ejection Fraction MOD 4C 27.1 % LV Ejection Fraction 4C AL 26.5 % LV Ejection Fraction MOD 2C 22.0 % LV Ejection Fraction 2C AL 23.7 % M-MODE LV Diastolic Diameter MM 5.8 cm 4.2 - 5.9 / 3.9 - 5.3 cm LV Systolic Diameter MM 5.2 cm LV Ejection Fraction MM Teich 21.2 % IVS Diastolic Thickness MM 1.2 cm 0.6 - 1.0 / 0.6 - 0.9 cm LVPW Diastolic Thickness MM 1.2 cm 0.6 - 1.0 / 0.6 - 0.9 cm LV Relative Wall Thickness MM 0.4 0.24 - 0.42 / 0.22 - 0.42 FINDINGS LEFT VENTRICLE The left ventricular systolic function is severely reduced with an estimated ejection fraction in th e range of 25-30%. Normal left ventricular size. Wall thickness is measured at the upper limits of normal. There was limited left ventricular wall motion assessment due to poor endocardial visualization. LEFT ATRIUM The left atrial size is mildly dilated. MITRAL VALVE Mitral annular calcification is present. Sanjay Adan MD, FACC (Electronically Signed) Final Date:15 November 2017 13:21
[2017-11-16 06:14] LABS: INR 2.9 Ratio; Prothrombin Time 29.4 sec (9.8-11.6)
[2017-11-16] MEDS: Lidocaine 5% Patch T-DERMAL SCH (08:51)
[2017-11-16] MEDS: Lisinopril 20 MG Tablet PO SCH (08:52)
[2017-11-16] MEDS: amLODIPine 5 MG Tablet PO SCH (08:52)
[2017-11-16] MEDS: Senna/Docusate Sodium 8.6/50 MG Tablet PO SCH ×2 (08:52→21:03)
[2017-11-16] MEDS: Carvedilol 12.5 MG Tablet PO SCH ×2 (08:52→21:01)
--- NOTE | 2017-11-16 09:40 | P.PNIM ---
Subjective Interval history: 9-7 Follow up CVA. Patient is waiting on approval for a life vest. She denies any chest pain, sob, fever or chills. She does not want to sign the financial form because insurance is declining. Patient is frustrated at this point because she feels she should be approved. 9-8 DISCUSSED WITH PATIENT AND RN NEEDS LIFEVEST DUE TO LOVE EF COULD RECHECK ECHO TO SEE IF IMPROVED DW RN AND PT 9- LATE ENTRY PATIENT SEEN AT 9:30 AM WILL ORDER REPEAT ECHO DW RN AND PT CONTINUE COUMADIN 9- repeat ECHO ONLY SHOWED EF OF 25 TO 30% STILL NEEDS LIFEVEST CM WORKING ON DC DW RN AND PT HOPEFULLY HOME SOON Physical Exam Vital signs: Vital Signs 11/15/17 12:00 11/15/17 13:00 11/15/17 16:00 Temperature 98.7 F 98 F Pulse Rate 60 74 64 Respiratory Rate 18 20 Blood Pressure 130/74 122/80 Pulse Oximetry 99 99 11/15/17 17:00 11/15/17 21:00 11/16/17 00:00 Temperature Pulse Rate 68 69 Respiratory Rate 18 Blood Pressure Pulse Oximetry 11/16/17 01:00 11/16/17 04:00 11/16/17 05:00 Temperature 97.7 F Pulse Rate 83 64 58 L Respiratory Rate 18 Blood Pressure 129/62 Pulse Oximetry 96 11/16/17 07:09 11/16/17 07:11 11/16/17 08:00 Temperature 98 F Pulse Rate 74 63 Respiratory Rate 14 14 Blood Pressure 117/75 Pulse Oximetry 97 Intake & Output 11/15/17 11/16/17 11/16/17 18:59 06:59 18:59 Intake Total 700 / 700 250 / 250 Balance 700 / 700 250 / 250 Weight 109.5 kg Intake: Oral 700 / 700 250 / 250 Other: # Voids 3 2 Date of Last Bowel Movement 11/15/17 11/16/17 # Bowel Movements 1 Narrative: GENERAL: This is a well-nourished, well-developed patient, in no apparent distress. Head is normocephalic atraumatic PERRLA EOMI tongue is midline oral mucosa is moist Neck is supple no JVD CARDIOVASCULAR: Regular rate and rhythm without murmurs, gallops, or rubs. S1, S2 NO S3 OR S4 RESPIRATORY: Clear to auscultation. Breath sounds equal bilaterally. No wheezes , rales, or rhonchi. GASTROINTESTINAL: Abdomen soft, non-tender, nondistended. Normal active bowel sounds MUSCULOSKELETAL: Extremities without clubbing, cyanosis, or edema. NEURO: Alert & Oriented x4 to person, place, time, situation. Moves all ext x4 Insight and judgment is good; mood and behavior is appropriate - Urinary Catheter Management Female External Cath placed during this visit: no Results - Labs CBC & Chem 7: 11/08/17 09:40 11/08/17 09:40 Laboratory Results - last 24 hr 11/16/17 05:53 PT 29.4 H INR 2.9 - Imaging Head MRI 10/22/17 00:00 CONCLUSION: 1. Acute or subacute infarct in the right frontoparietal region. 2. Minimal white matter changes Chest X-Ray 10/22/17 15:52 CONCLUSION: Negative examination. Head CT 10/22/17 15:52 CONCLUSION: Findings suspicious for subtle edema along the right insular ribbon and the right frontal lobe. This could represent early cytotoxic edema related to ischemia. These findings were telephoned to Dr. Mandujano at 4:15 PM on 10/22/2017. Head CTA 10/22/17 15:52 CONCLUSION: Focal proximal occlusion of the superior division branch of the right middle cerebral artery. Neck CTA 10/22/17 15:52 CONCLUSION: No evidence of carotid stenosis Myocardial Perfusion Scan Nuc Med 10/26/17 00:00 CONCLUSION: 1. Severe LV chamber dilatation and LV dysfunction. 2. No evidence of ischemia Head CT 11/07/17 00:00 CONCLUSION: 1. No significant change in right frontal parietal junction infarction without hemorrhage or mass effect. . - Procedures LAURA 8-20 Moderately dilated left ventricle. Wall thickness is measured at the upper limits of normal. The left ventricular systolic function is severely reduced with an estimated ejection fraction in the range of 20-25%. There is diffuse global hypokinesis with distinct regional wall motion abnormalities. Small mobile left ventricular apical thrombus. Normal left atrial appendage size with no evidence of thrombus formation. Normal atrial septal thickness without atrial level shunting by limited color doppler interrogation. No atrial level shunt is demonstrated by color flow Doppler interrogation. No atrial level shunt is observed with agitated saline contrast administration. Mild thickening of the mitral valve leaflets. Mild mitral valve regurgitation. Mild mitral annular calcification. No mitral valve stenosis. Mild tricuspid valve stenosis. Assessment and Plan - Assessment (1) Impaired mobility and ADLs Code(s): Z74.09 - Other reduced mobility Status: Acute (2) Acute CVA (cerebrovascular accident) Code(s): I63.9 - Cerebral infarction, unspecified Status: Acute (3) Weakness Code(s): R53.1 - Weakness Status: Acute (4) Gait instability Code(s): R26.81 - Unsteadiness on feet Status: Acute (5) Risk for falls Code(s): Z91.81 - History of falling Status: Acute - Plan 61-year-old female presents with left facial droop, confusion, mild dysarthria Acute CVA -2D echo results showed a EF of 20-25% with dilated left ventricle and dilated left atrial with moderate mitral regurgitation. Small mobile left ventricular apical thrombus also noted. -Cont PT and ST. -Stress test completed on 10/26 showed severe LV chamber dilatation and LV dysfunction, no evidence of ischemia. -Neurology recommends lifelong Coumadin -INR goal 23, continue Coumadin, continue daily INRs, pharmacy consult for dosing. INR is 2.5. -Discontinue Lovenox -Repeat head CT ordered 11/07 due to patient complaint of headache -no acute changes seen. We will do a repeat echo to see if there is been any improvement in the cardiomyopathy EF STILL 25 TO 30%ONLY Hypertensive emergency -stable, continue Coreg, lisinopril, Norvasc. Nonischemic cardiomyopathy Cardiomyopathy of 20-25% with dilated left ventricle and atrial -Cardiology recommends continuing Coreg and lisinopril -Can discontinue aspirin as patient will now be transitioned to p.o. Coumadin -Cardiology also recommends LifeVest at discharge, this has been ordered, employment case manager working on getting approval from insurance [employer]. -Possible AICD We will do a repeat echo to see if there is been any improvement in the cardiomyopathy EF STILL ONLY 25 TO 30% Right-sided sciatica -physical therapy and stretching exercises. Constipation -PRN meds ordered Tobacco abuse-cessation reinforced DVT prophylaxisCoumadin Discharge Planning: Once life vest is approved We will do a repeat echo to see if there is been any change in the cardiomyopathy Code Status: FULL CODE Discussed Condition With: RN AND PT AND CM Discharge Planning: Discharge when cleared by all AND INR BETWEEN 2.0 AND 3.0 EF STILL ONLY 25 TO 30%
--- NOTE | 2017-11-16 09:48 | P.DS ---
Date of admission: 10/22/17 17:16 Primary care physician: UNKNOWN Attending physician on discharge: Juan Jose Aguilar Anticipated date of discharge: 11/16/17 Brief History from admission: 61-year-old female with no past medical history presents to the emergency room after she was found wandering in the grocery store and having friends noticed left facial droop. She states prior to going to the grocery store she was in the bathroom and fell but was able to get up at that time at 11 :00 however going to grow sure she felt "not herself". Her friends also noted she had difficulty with her speech however she blames on recent dentures that was placed in. Nursing staff at the bedside the emergency room stated that she initially had garbled speech when she presented in the emergency room however has improved at this time. She denies any focalized weakness or numbness. She denies any numbness or tingling at this time. Patient update on day of discharge: 9-7 Follow up CVA. Patient is waiting on approval for a life vest. She denies any chest pain, sob, fever or chills. She does not want to sign the financial form because insurance is declining. Patient is frustrated at this point because she feels she should be approved. 9-8 DISCUSSED WITH PATIENT AND RN NEEDS LIFEVEST DUE TO LOVE EF COULD RECHECK ECHO TO SEE IF IMPROVED DW RN AND PT 9-9 LATE ENTRY PATIENT SEEN AT 9:30 AM WILL ORDER REPEAT ECHO DW RN AND PT CONTINUE COUMADIN 9-10 repeat ECHO ONLY SHOWED EF OF 25 TO 30% STILL NEEDS LIFEVEST CM WORKING ON DC DW RN AND PT HOPEFULLY HOME SOON DS: Diagnosis - Discharge Diagnosis (1) Impaired mobility and ADLs Status: Acute (2) Acute CVA (cerebrovascular accident) Status: Acute (3) Weakness Status: Acute (4) Gait instability Status: Acute (5) Risk for falls Status: Acute DS: Medications - Discharge Medications Prescriptions: amlodipine [Norvasc] 5 mg PO DAILY #30 tab carvedilol [Coreg] 12.5 mg PO BID #60 tab cyclobenzaprine 5 mg PO Q8HR PRN #90 tab PRN Reason: MUSCLE SPASMS lidocaine [Lidoderm] 1 patch TRANSDERMAL DAILY #30 ea lisinopril 20 mg PO DAILY #30 tab oxycodone-acetaminophen 1 tab PO Q6H PRN #12 tab PRN Reason: Pain Scale 3 To 5 sennosides-docusate sodium [Senna Plus] 1 tab PO BID #120 tab warfarin [Coumadin] 5 mg PO DAILY@1600 #30 tab DS: Summary Hospital Course: 61-year-old female with no past medical history presents to the emergency room after she was found wandering in the grocery store and having friends noticed left facial droop. She states prior to going to the grocery store she was in the bathroom and fell but was able to get up at that time at 11 :00 however going to grow sure she felt "not herself". Her friends also noted she had difficulty with her speech however she blames on recent dentures that was placed in. Nursing staff at the bedside the emergency room stated that she initially had garbled speech when she presented in the emergency room however has improved at this time. She denies any focalized weakness or numbness. She denies any numbness or tingling at this time. 8-17 Complaining of left sciatic back pain that she is laying flat. No complaints of headache visual changes nor any focalized weakness or numbness. Feeling okay. 8-18 No focalized weakness or numbness. No headaches. Doing well. 8-19 Reports no focalized weakness or numbness. Reports headache last night. 8-20 FOLLOW UP ON EF 20 TO 25% TO HAVE LAURA TODAY AND STRESS TEST NEUROLOGY WANTS HER STARTED ON COUMADIN TODAY DW RN AND PT AND NEUROLOGY POSITIVE CLOT PER LAURA NEEDS COUMADIN AND LOVENOX FULL DOSE BID WILL NEED INR 2.0 TO 3.0 8-21 on coumadin and lovenox will need goal INR OF 2.0 TO 3.0 PRIOR TO DISCHARGE SINCE HAS NO PCP YET GOT COUMADIN DIET EDUCATION AM LABS LOAD COUMADIN DW RN AND PT AND CM 9-7 Follow up CVA. Patient is waiting on approval for a life vest. She denies any chest pain, sob, fever or chills. She does not want to sign the financial form because insurance is declining. Patient is frustrated at this point because she feels she should be approved. 9-8 DISCUSSED WITH PATIENT AND RN NEEDS LIFEVEST DUE TO LOVE EF COULD RECHECK ECHO TO SEE IF IMPROVED DW RN AND PT 9-9 LATE ENTRY PATIENT SEEN AT 9:30 AM WILL ORDER REPEAT ECHO DW RN AND PT CONTINUE COUMADIN 11-16 repeat ECHO ONLY SHOWED EF OF 25 TO 30% STILL NEEDS LIFEVEST CM WORKING ON DC DW RN AND PT HOPEFULLY HOME SOON - Time Spent with Patient Total time spent providing and/or coordinating discharge services: Greater than 30 minutes - Quality: Stroke Last date observed well: 10/22/17 Last time observed well: 11:00 - Quality: VTE Deep Vein Thrombosis/Pulmonary Embolism Present on Admission: No Exam Vital signs: Vital Signs 11/15/17 12:00 11/15/17 13:00 11/15/17 16:00 Temperature 98.7 F 98 F Pulse Rate 60 74 64 Respiratory Rate 18 20 Blood Pressure 130/74 122/80 Pulse Oximetry 99 99 11/15/17 17:00 11/15/17 21:00 11/16/17 00:00 Temperature Pulse Rate 68 69 Respiratory Rate 18 Blood Pressure Pulse Oximetry 11/16/17 01:00 11/16/17 04:00 11/16/17 05:00 Temperature 97.7 F Pulse Rate 83 64 58 L Respiratory Rate 18 Blood Pressure 129/62 Pulse Oximetry 96 11/16/17 07:09 11/16/17 07:11 11/16/17 08:00 Temperature 98 F Pulse Rate 74 63 Respiratory Rate 14 14 Blood Pressure 117/75 Pulse Oximetry 97 Intake & Output 11/15/17 11/16/17 11/16/17 18:59 06:59 18:59 Intake Total 700 / 700 250 / 250 Balance 700 / 700 250 / 250 Weight 109.5 kg Intake: Oral 700 / 700 250 / 250 Other: # Voids 3 2 Date of Last Bowel Movement 11/15/17 11/16/17 # Bowel Movements 1 Narrative: GENERAL: This is a well-nourished, well-developed patient, in no apparent distress. Head is normocephalic atraumatic PERRLA EOMI tongue is midline oral mucosa is moist Neck is supple no JVD CARDIOVASCULAR: Regular rate and rhythm without murmurs, gallops, or rubs. S1, S2 NO S3 OR S4 RESPIRATORY: Clear to auscultation. Breath sounds equal bilaterally. No wheezes , rales, or rhonchi. GASTROINTESTINAL: Abdomen soft, non-tender, nondistended. Normal active bowel sounds MUSCULOSKELETAL: Extremities without clubbing, cyanosis, or edema. NEURO: Alert & Oriented x4 to person, place, time, situation. Moves all ext x4 Insight and judgment is good; mood and behavior is appropriate Results Procedures completed during hospitalization: LAURA 8-20 Moderately dilated left ventricle. Wall thickness is measured at the upper limits of normal. The left ventricular systolic function is severely reduced with an estimated ejection fraction in the range of 20-25%. There is diffuse global hypokinesis with distinct regional wall motion abnormalities. Small mobile left ventricular apical thrombus. Normal left atrial appendage size with no evidence of thrombus formation. Normal atrial septal thickness without atrial level shunting by limited color doppler interrogation. No atrial level shunt is demonstrated by color flow Doppler interrogation. No atrial level shunt is observed with agitated saline contrast administration. Mild thickening of the mitral valve leaflets. Mild mitral valve regurgitation. Mild mitral annular calcification. No mitral valve stenosis. Mild tricuspid valve stenosis. Completed studies during hospitalization: Laboratory Results WBC 6.5 th/mm3 (4.0-11.0) 11/08/17 09:40 RBC 4.37 mil/mm3 (4.00-5.30) 11/08/17 09:40 Hgb 13.4 gm/dL (11.6-15.3) 11/08/17 09:40 POC Hgb (Calc) 13.3 g/dL (11.6-15.3) 10/22/17 15:55 Hct 39.7 % (35.0-46.0) 11/08/17 09:40 POC Hct 39.0 % (35-46.0) 10/22/17 15:55 MCV 91.0 fL (80.0-100.0) 11/08/17 09:40 MCH 30.7 pg (27.0-34.0) 11/08/17 09:40 MCHC 33.8 % (32.0-36.0) 11/08/17 09:40 RDW 13.1 % (11.6-17.2) 11/08/17 09:40 Plt Count 178 th/mm3 (150-450) 11/08/17 09:40 MPV 10.8 fL (7.0-11.0) 11/08/17 09:40 Neut % (Auto) 45.4 % (16.0-70.0) 11/08/17 09:40 Lymph % (Auto) 38.4 % (9.0-44.0) 11/08/17 09:40 [place] % (Auto) 9.4 % (0.0-8.0) H 11/08/17 09:40 Eos % (Auto) 4.6 % (0.0-4.0) H 11/08/17 09:40 Baso % (Auto) 2.2 % (0.0-2.0) H 11/08/17 09:40 Neut # (Auto) 3.0 th/mm3 (1.8-7.7) 11/08/17 09:40 Lymph # (Auto) 2.5 th/mm3 (1.0-4.8) 11/08/17 09:40 [place] # (Auto) 0.6 th/mm3 (0.0-0.9) 11/08/17 09:40 Eos # (Auto) 0.3 th/mm3 (0.0-0.4) 11/08/17 09:40 Baso # (Auto) 0.1 th/mm3 (0.0-0.2) 11/08/17 09:40 WBC Differential . 11/08/17 09:40 Differential Comment Auto diff final 11/08/17 09:40 ESR 6 mm/hr (0-30) 10/22/17 20:18 PT 29.4 sec (9.8-11.6) H 11/16/17 05:53 INR 2.9 Ratio 11/16/17 05:53 APTT 21.1 sec (24.3-30.1) L 10/22/17 15:55 Thrombin Time ND 10/22/17 20:18 Fibrinogen 296 mg/dL (227-377) 10/22/17 15:55 Lupus Anticoagulant (NOT DETECTED) 10/22/17 20:18 LA PTT Screen 32 seconds (< OR = 40) 10/22/17 20:18 dRVVT Screen 35 seconds (< OR = 45) 10/22/17 20:18 LA dRVVT Confirm ND 10/22/17 20:18 dRVVT Mix ND 10/22/17 20:18 Hexagonal Phase Confirm ND 10/22/17 20:18 Protein C Activity 83 % (70 - 150) 10/22/17 20:18 Protein S Activity 96 % (65 - 160) 10/22/17 20:18 POC Sodium 140 mmol/L (137-144) 10/22/17 15:55 Sodium 140 meq/L (136-145) 11/08/17 09:40 POC Potassium 3.8 mmol/L (3.6-5.0) 10/22/17 15:55 Potassium 4.7 meq/L (3.5-5.1) 11/08/17 09:40 POC Chloride 105 mmol/L (102-111) 10/22/17 15:55 Chloride 103 meq/L (98-107) 11/08/17 09:40 Carbon Dioxide 28.6 meq/L (21.0-32.0) 11/08/17 09:40 Anion Gap 8 meq/L (5-15) 11/08/17 09:40 POC BUN 8 mg/dL (5-21) 10/22/17 15:55 BUN 19 mg/dL (7-18) H 11/08/17 09:40 Creatinine 0.80 mg/dL (0.50-1.00) 11/08/17 09:40 POC Creatinine 0.7 mg/dL (0.6-1.3) 10/22/17 15:55 Estimated GFR 89 mL/min (>89) 11/08/17 09:40 POC Glucose 135 mg/dl (68-110) H 10/28/17 11:34 Random Glucose 100 mg/dL (74-106) 11/08/17 09:40 Hemoglobin A1c 5.6 % (4.3-6.0) 10/26/17 11:32 Calcium 8.5 mg/dL (8.5-10.1) 11/08/17 09:40 Phosphorus 3.8 mg/dL (2.5-4.9) 10/27/17 08:41 Magnesium 2.0 mg/dL (1.5-2.5) 10/27/17 08:41 Total Bilirubin 0.2 mg/dL (0.2-1.0) 11/08/17 09:40 AST 18 U/L (15-37) 11/08/17 09:40 ALT 42 U/L (10-53) 11/08/17 09:40 Alkaline Phosphatase 64 U/L (45-117) 11/08/17 09:40 Total Creatine Kinase 244 U/L (26-192) H 10/22/17 15:55 CK-MB (CK-2) 5.4 ng/mL (0.5-3.6) H 10/22/17 15:55 CK-MB (CK-2) % 2.2 % (0.0-4.0) 10/22/17 15:55 Troponin I 0.02 ng/mL (0.02-0.05) 10/25/17 14:55 Total Protein 6.8 g/dL (6.4-8.2) D 11/08/17 09:40 Albumin 3.5 g/dL (3.4-5.0) D 11/08/17 09:40 Triglycerides 88 mg/dL (42-150) 10/27/17 08:41 Cholesterol 111 mg/dL (120-200) L 10/27/17 08:41 LDL Cholesterol, Calc 38 mg/dL (0-99) 10/27/17 08:41 HDL Cholesterol 55.7 mg/dL (40.0-60.0) 10/27/17 08:41 Cholesterol/HDL Ratio 1.99 Ratio 10/27/17 08:41 Vitamin B12 500 pg/mL (193-986) 10/22/17 15:55 Folate 13.2 ng/mL (3.1-17.5) 10/22/17 15:55 TSH 6.690 uIU/mL (0.358-3.740) H 10/26/17 11:32 Free T4 0.87 ng/dL (0.76-1.46) 10/26/17 11:32 Urine Color Straw (Yellw/Straw) 10/22/17 17:05 Urine Clarity Cloudy (Clear) H 10/22/17 17:05 Urine pH 7.0 (5.0-8.5) 10/22/17 17:05 Ur Specific Violet 1.013 (1.002-1.035) 10/22/17 17:05 Urine Protein Negative mg/dL (Neg-Trace) 10/22/17 17:05 Urine Glucose (UA) Negative mg/dL (Negative) 10/22/17 17:05 Urine Ketones Negative mg/dL (Negative) 10/22/17 17:05 Urine Occult Blood Small (Negative) H 10/22/17 17:05 Urine Nitrate Negative (Negative) 10/22/17 17:05 Urine Bilirubin Negative (Negative) 10/22/17 17:05 Urine Urobilinogen Less than 2 mg/dL (Less than 2) 10/22/17 17:05 Ur Leukocyte Esterase Large (Negative) H 10/22/17 17:05 Urine RBC 2 /hpf (0-3) 10/22/17 17:05 Urine WBC 64 /hpf (0-5) H 10/22/17 17:05 Urine WBC Clumps Many (None) H 10/22/17 17:05 Ur Squamous Epith Cells 2 /hpf (0-5) 10/22/17 17:05 Urine Bacteria Few /hpf (None) H 10/22/17 17:05 Urine Mucus Few /lpf (Occasional) H 10/22/17 17:05 Micro UA Comment Cath-culture ind 10/22/17 17:05 Urine Culture Comments Cath-cult indicated 10/22/17 17:05 Nasal Screen MRSA (PCR) Not detected (Negative) 10/22/17 23:00 ARMEN Screen Neg (Neg) 10/22/17 20:18 Anti-Cardiolipin IgG Ab <9.4 GPL 10/22/17 20:18 Anti-Cardiolipin IgM Ab <9.4 MPL 10/22/17 20:18 RPR Nonreactive (Nonreactive) 10/22/17 20:18 Blood Type B Positive 10/22/17 15:55 Blood Type Recheck 10/22/17 15:55 Antibody Screen Negative 10/22/17 15:55 Impressions Head MRI 10/22/17 00:00 CONCLUSION: 1. Acute or subacute infarct in the right frontoparietal region. 2. Minimal white matter changes Chest X-Ray 10/22/17 15:52 CONCLUSION: Negative examination. Head CTA 10/22/17 15:52 CONCLUSION: Focal proximal occlusion of the superior division branch of the right middle cerebral artery. Neck CTA 10/22/17 15:52 CONCLUSION: No evidence of carotid stenosis Myocardial Perfusion Scan Nuc Med 10/26/17 00:00 CONCLUSION: 1. Severe LV chamber dilatation and LV dysfunction. 2. No evidence of ischemia Head CT 11/07/17 00:00 CONCLUSION: 1. No significant change in right frontal parietal junction infarction without hemorrhage or mass effect. . Labs on day of discharge: Labs from last 24 hours 11/16/17 05:53 PT 29.4 H INR 2.9 - Impressions ITS Impressions Head MRI 10/22/17 00:00 CONCLUSION: 1. Acute or subacute infarct in the right frontoparietal region. 2. Minimal white matter changes Chest X-Ray 10/22/17 15:52 CONCLUSION: Negative examination. Head CTA 10/22/17 15:52 CONCLUSION: Focal proximal occlusion of the superior division branch of the right middle cerebral artery. Neck CTA 10/22/17 15:52 CONCLUSION: No evidence of carotid stenosis Myocardial Perfusion Scan Nuc Med 10/26/17 00:00 CONCLUSION: 1. Severe LV chamber dilatation and LV dysfunction. 2. No evidence of ischemia Head CT 11/07/17 00:00 CONCLUSION: 1. No significant change in right frontal parietal junction infarction without hemorrhage or mass effect. . Discharge Plan - Discharge Disposition Patient Disposition: 01 Discharge Home - Discharge Condition Condition: Stable - Discharge Order Discharge Orders: Discharge Order (Routine); Ordered 11/16/17 Ordered By: Juan Jose Aguilar - Discharge Details Anticipated Discharge Date: 11/16/17 Discharge Comment: DC TO HOME ONCE LIFEVEST SET UP - Physicians Team Primary Care Provider: UNKNOWN, Attending Provider: Juan Jose Aguilar Other Providers: Mauro Celaya MD ; Isabelle Chi MD ; Sanjay Adan MD
[2017-11-17 07:59] LABS: INR 2.2 Ratio; Prothrombin Time 22.5 sec (9.8-11.6)
[2017-11-17] MEDS: Lisinopril 20 MG Tablet PO SCH (08:35)
[2017-11-17] MEDS: Lidocaine 5% Patch T-DERMAL SCH (08:35)
[2017-11-17] MEDS: amLODIPine 5 MG Tablet PO SCH (08:35)
[2017-11-17] MEDS: Carvedilol 12.5 MG Tablet PO SCH (08:35)
[2017-11-17] MEDS: Senna/Docusate Sodium 8.6/50 MG Tablet PO SCH (08:35)
--- NOTE | 2017-11-17 09:59 | P.PNCA ---
Subjective Interval history: No complaints Physical Exam Vital signs: Vital Signs 11/16/17 12:00 11/16/17 13:00 11/16/17 16:00 Temperature 98.2 F 98.7 F Pulse Rate 65 82 88 Respiratory Rate 14 14 Blood Pressure 107/68 118/89 Pulse Oximetry 95 98 11/16/17 16:47 11/16/17 20:00 11/16/17 21:00 Temperature 98.3 F Pulse Rate 67 72 72 Respiratory Rate 18 Blood Pressure 129/64 Pulse Oximetry 95 11/17/17 00:00 11/17/17 01:00 11/17/17 03:49 Temperature 97.9 F 97.4 F L Pulse Rate 68 63 69 Respiratory Rate 18 18 Blood Pressure 118/76 124/65 Pulse Oximetry 98 95 11/17/17 04:52 Temperature Pulse Rate 64 Respiratory Rate Blood Pressure Pulse Oximetry Intake & Output 11/16/17 11/17/17 11/17/17 18:59 06:59 18:59 Intake Total 500 / 500 Balance 500 / 500 Weight 98 kg Intake: Oral 500 / 500 Other: # Voids 3 1 Date of Last Bowel Movement 11/16/17 11/16/17 # Bowel Movements 0 - Constitutional no acute distress - Routine HEENT Exam Eye: Present: EOMI, PERRL - Routine Neck Exam Absent: JVD - Routine Respiratory Exam Present: CTA bilaterally - Routine Cardiovascular Exam Present: RRR - Routine Abdominal Exam Present: normoactive bowel sounds - Urinary Catheter Management Female External Cath placed during this visit: no Assessment and Plan - Assessment (1) Cardiomyopathy, nonischemic Code(s): I42.8 - Other cardiomyopathies Status: Acute - Plan I was asked for reevaluation with history of stroke and newly diagnosed nonischemic cardiomyopathy. Patient should be continued on guideline directed medical therapy as tolerated with angiotensin-converting enzyme inhibitor and beta blockade. No ventricular arrhythmias noted on telemetry. Patient unable to obtain external automatic cardioverter defibrillator given financial issues. Given low risk for ventricular arrhythmias in the setting of nonischemic cardiomyopathy is supposed to ischemic cardiomyopathy, patient will be agreeable to discharge with outpatient follow-up transthoracic echocardiogram. Patient is not a candidate for implantable cardioverter defibrillator and alternative options are limited. Okay for discharge from a cardiovascular perspective. 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
--- NOTE | 2017-11-17 10:13 | P.PNIM ---
Subjective Interval history: 9-7 Follow up CVA. Patient is waiting on approval for a life vest. She denies any chest pain, sob, fever or chills. She does not want to sign the financial form because insurance is declining. Patient is frustrated at this point because she feels she should be approved. 11-14 DISCUSSED WITH PATIENT AND RN NEEDS LIFEVEST DUE TO LOVE EF COULD RECHECK ECHO TO SEE IF IMPROVED DW RN AND PT 11-15 LATE ENTRY PATIENT SEEN AT 9:30 AM WILL ORDER REPEAT ECHO DW RN AND PT CONTINUE COUMADIN 11-16 repeat ECHO ONLY SHOWED EF OF 25 TO 30% STILL NEEDS LIFEVEST CM WORKING ON DC DW RN AND PT HOPEFULLY HOME SOON 11-[address] THOMASON TO DC TO HOME TODAY WITHOUT LIFE VEST DC TO HOME TODAY NO NEED FOR LIFEVEST AT DISCHARGE DC TO HOME Physical Exam Vital signs: Vital Signs 11/16/17 12:00 11/16/17 13:00 11/16/17 16:00 Temperature 98.2 F 98.7 F Pulse Rate 65 82 88 Respiratory Rate 14 14 Blood Pressure 107/68 118/89 Pulse Oximetry 95 98 11/16/17 16:47 11/16/17 20:00 11/16/17 21:00 Temperature 98.3 F Pulse Rate 67 72 72 Respiratory Rate 18 Blood Pressure 129/64 Pulse Oximetry 95 11/17/17 00:00 11/17/17 01:00 11/17/17 03:49 Temperature 97.9 F 97.4 F L Pulse Rate 68 63 69 Respiratory Rate 18 18 Blood Pressure 118/76 124/65 Pulse Oximetry 98 95 11/17/17 04:52 Temperature Pulse Rate 64 Respiratory Rate Blood Pressure Pulse Oximetry Intake & Output 11/16/17 11/17/17 11/17/17 18:59 06:59 18:59 Intake Total 500 / 500 Balance 500 / 500 Weight 98 kg Intake: Oral 500 / 500 Other: # Voids 3 1 Date of Last Bowel Movement 11/16/17 11/16/17 # Bowel Movements 0 Narrative: GENERAL: This is a well-nourished, well-developed patient, in no apparent distress. Head is normocephalic atraumatic PERRLA EOMI tongue is midline oral mucosa is moist Neck is supple no JVD CARDIOVASCULAR: Regular rate and rhythm without murmurs, gallops, or rubs. S1, S2 NO S3 OR S4 RESPIRATORY: Clear to auscultation. Breath sounds equal bilaterally. No wheezes , rales, or rhonchi. GASTROINTESTINAL: Abdomen soft, non-tender, nondistended. Normal active bowel sounds MUSCULOSKELETAL: Extremities without clubbing, cyanosis, or edema. NEURO: Alert & Oriented x4 to person, place, time, situation. Moves all ext x4 Insight and judgment is good; mood and behavior is appropriate - Urinary Catheter Management Female External Cath placed during this visit: no Results - Labs CBC & Chem 7: 11/08/17 09:40 11/08/17 09:40 Laboratory Results - last 24 hr 11/17/17 06:50 PT 22.5 H INR 2.2 - Imaging Head MRI 10/22/17 00:00 CONCLUSION: 1. Acute or subacute infarct in the right frontoparietal region. 2. Minimal white matter changes Chest X-Ray 10/22/17 15:52 CONCLUSION: Negative examination. Head CT 10/22/17 15:52 CONCLUSION: Findings suspicious for subtle edema along the right insular ribbon and the right frontal lobe. This could represent early cytotoxic edema related to ischemia. These findings were telephoned to Dr. Mandujano at 4:15 PM on 10/22/2017. Head CTA 10/22/17 15:52 CONCLUSION: Focal proximal occlusion of the superior division branch of the right middle cerebral artery. Neck CTA 10/22/17 15:52 CONCLUSION: No evidence of carotid stenosis Myocardial Perfusion Scan Nuc Med 10/26/17 00:00 CONCLUSION: 1. Severe LV chamber dilatation and LV dysfunction. 2. No evidence of ischemia Head CT 11/07/17 00:00 CONCLUSION: 1. No significant change in right frontal parietal junction infarction without hemorrhage or mass effect. . - Procedures LAURA 8-20 Moderately dilated left ventricle. Wall thickness is measured at the upper limits of normal. The left ventricular systolic function is severely reduced with an estimated ejection fraction in the range of 20-25%. There is diffuse global hypokinesis with distinct regional wall motion abnormalities. Small mobile left ventricular apical thrombus. Normal left atrial appendage size with no evidence of thrombus formation. Normal atrial septal thickness without atrial level shunting by limited color doppler interrogation. No atrial level shunt is demonstrated by color flow Doppler interrogation. No atrial level shunt is observed with agitated saline contrast administration. Mild thickening of the mitral valve leaflets. Mild mitral valve regurgitation. Mild mitral annular calcification. No mitral valve stenosis. Mild tricuspid valve stenosis. Assessment and Plan - Assessment (1) Impaired mobility and ADLs Code(s): Z74.09 - Other reduced mobility Status: Acute (2) Acute CVA (cerebrovascular accident) Code(s): I63.9 - Cerebral infarction, unspecified Status: Acute (3) Weakness Code(s): R53.1 - Weakness Status: Acute (4) Gait instability Code(s): R26.81 - Unsteadiness on feet Status: Acute (5) Risk for falls Code(s): Z91.81 - History of falling Status: Acute - Plan 61-year-old female presents with left facial droop, confusion, mild dysarthria Acute CVA -2D echo results showed a EF of 20-25% with dilated left ventricle and dilated left atrial with moderate mitral regurgitation. Small mobile left ventricular apical thrombus also noted. -Cont PT and ST. -Stress test completed on 10/26 showed severe LV chamber dilatation and LV dysfunction, no evidence of ischemia. -Neurology recommends lifelong Coumadin -INR goal 23, continue Coumadin, continue daily INRs, pharmacy consult for dosing. INR is 2.5. -Discontinue Lovenox -Repeat head CT ordered 11/07 due to patient complaint of headache -no acute changes seen. We will do a repeat echo to see if there is been any improvement in the cardiomyopathy EF STILL 25 TO 30%ONLY NO NEED FOR LIFEVEST Hypertensive emergency -stable, continue Coreg, lisinopril, Norvasc. Nonischemic cardiomyopathy Cardiomyopathy of 20-25% with dilated left ventricle and atrial -Cardiology recommends continuing Coreg and lisinopril -Can discontinue aspirin as patient will now be transitioned to p.o. Coumadin -Cardiology OK FOR DISCHARGE WITH NO LIFEVEST NOW -Possible AICD We will do a repeat echo to see if there is been any improvement in the cardiomyopathy EF STILL ONLY 25 TO 30% Right-sided sciatica -physical therapy and stretching exercises. Constipation -PRN meds ordered Tobacco abuse-cessation reinforced DVT prophylaxisCoumadin Discharge Planning: CARDIOLOGY NO LONGER NEEDS We will do a repeat echo to see if there is been any change in the cardiomyopathy Code Status: FULL CODE Discussed Condition With: CONI RN AND PT AND CARDIOLOGY Discharge Planning: Discharge when cleared by all AND INR BETWEEN 2.0 AND 3.0 EF STILL ONLY 25 TO 30%
== END 2017-11-17 17:30 | disposition home or self-care (01) ==
LOC: NEPE 15:48 → NEDA 17:16 → N03 21:18 → N06 10-24 23:23 → H7ONC 11-13 15:16
PROVIDERS: ADMIT Hospitalist; ATTEND Hospitalist